=== PATIENT | female | born 1985 | race Caucasian/White ===

== ENCOUNTER 2025-09-07 22:26 | Emergency (ER) | payer OTHER, MEDICAID, SELFPAY ==
--- OUTSIDE RECORDS SUMMARY | 2024-04-29 05:15 | XMS_ITS ---
Author Organization [facility]stal Address [address] [place] [address] Care Team Providers Care Rubber Off Name Role Phone Miriam Arteaga Primary Care Provider REASON FOR VISIT diarrhea Encounters Encounter Location Date Provider Diagnosis [address] [place] [address] 04/29/2024 Miriam Arteaga Plan Of Treatment No Information Progress Notes * Josephine JONESJessicaOB: 3 (40 yo F)Acc No.[id number]:04/29/2024 Progress Notes Patient: Katelynn SNEED :?RUKHSANA McdanielOB:1985???Age:38 Y ???Sex:FemaleDate:04/29/2024hone:[phone]:[address], [id number] Subjective: * Chief Complaints: * 1 . Diarrhea. * Medical History: Objective: * Vitals: Assessment: Plan: * Treatment: * * The named appointment provider may or may not be the originator of this progress note, and it is not deemed complete until electronically signed by the appointment provider.Sign off status: Pending * Provider: Mohan Arteaga MD Date: 0 04/29/2024 Generated for Printing/Faxing/eTransmitting on:?09/08/2025 01:25 AM CHEMIST INSTRUMENTATION
--- OUTSIDE RECORDS SUMMARY | 2024-04-29 05:15 | XMS_ITS ---
Author Organization [facility] y[facility] Address [address] [place] [address] Care Team Providers Care Visualization Developer Name Role Phone Miriam Arteaga Primary Care Provider REASON FOR VISIT diarrhea Encounters Encounter Location Date Provider Diagnosis [address] [place] [address] 04/29/2024 Miriam Arteaga Plan Of Treatment No Information Progress Notes * Josephine JONESJessicaOB: 3 (40 yo F)Acc No.[id number]:04/29/2024 Progress Notes Patient: Katelynn SNEED :?RUKHSANA McdanielOB:1985???Age:38 Y ???Sex:FemaleDate:04/29/2024hone:[phone]:[address], [id number] Subjective: * Chief Complaints: * 1 . Diarrhea. * Medical History: Objective: * Vitals: Assessment: Plan: * Treatment: * * The named appointment provider may or may not be the originator of this progress note, and it is not deemed complete until electronically signed by the appointment provider.Sign off status: Pending * Provider: Mohan Arteaga MD Date: 0 04/29/2024 Generated for Printing/Faxing/eTransmitting on:?09/07/2025 10:29 PM TECHNICAL ANALYST
--- OUTSIDE RECORDS SUMMARY | 2024-04-29 05:45 | XMS_ITS ---
Author Organization [facility] ystal Address [address] [place] [address] Care Team Providers Care Docking Pilot Name Role Phone Miriam Arteaga Primary Care Provider REASON FOR VISIT fissure Encounters Encounter Location Date Provider Diagnosis [address] [place] [address] 04/29/2024 Miriam Arteaga Plan Of Treatment No Information Progress Notes * Josephine JONESgeDOB: 3 (40 yo F)Acc No.[id number]:04/29/2024 Progress Notes Patient: Katelynn SNEED :?RUKHSANA McdanielOB:1985???Age:38 Y ???Sex:FemaleDate:04/29/2024hone:[phone]:[address], [place]-[phone] Subjective: * Chief Complaints: * 1 . Fissure. * Medical History: Objective: * Vitals: Assessment: Plan: * Treatment: * * The named appointment provider may or may not be the originator of this progress note, and it is not deemed complete until electronically signed by the appointment provider.Sign off status: Pending * Provider: Mohan Arteaga MD Date: 0 04/29/2024 Generated for Printing/Faxing/eTransmitting on:?09/07/2025 10:29 PM LABORER [employer]
--- OUTSIDE RECORDS SUMMARY | 2024-04-29 05:45 | XMS_ITS ---
Author Organization [facility] ystal Address [address] [place] [address] Care Team Providers Care Manager Of Warehouse Name Role Phone Miriam Arteaga Primary Care Provider REASON FOR VISIT fissure Encounters Encounter Location Date Provider Diagnosis [address] [place] [address] 04/29/2024 Miriam Arteaga Plan Of Treatment No Information Progress Notes * Josephine JONESgeDOB: 3 (40 yo F)Acc No.[id number]:04/29/2024 Progress Notes Patient: Katelynn SNEED :?RUKHSANA McdanielOB:1985???Age:38 Y ???Sex:FemaleDate:04/29/2024hone:[phone]:[address], [place]-[phone] Subjective: * Chief [...] 04/29/2024 Generated for Printing/Faxing/eTransmitting on:?09/08/2025 01:25 AM APPLIANCES SAMPLE MAKER
--- OUTSIDE RECORDS SUMMARY | 2024-05-27 03:00 | XMS_ITS ---
Author Organization [facility] y[facility]al Address [address] [place] [address] Care Team Providers Care Pumper Gager Name Role Phone Miriam Arteaga Primary Care Provider Allergies Allergen (clinical drug ingredient) Drug/Non Drug Allergy documented on EMR Reaction Allergy Type Onset Date Status clindamycin Clindamycin HCl Unknown Drug Allergy ActiveerythromycinErythromycinUnknownDrug AllergyActiveVicodinUnknownDrug AllergyActivebuspironeBuspironeUnknownDrug AllergyActivemorphineMorphineUnknown Drug AllergyActive REASON FOR VISIT fissure Medications Medication SIG (Take, Route, Frequency, Duration) Notes Start Date End Date Status Lidocaine HCl 2 % 1 application as nee ded Externally Three times a day as needed; Duration: 14 days 2ActiveTylenolActiveColaceActiveAlbuterol Sulfate HFAActiveKlonoPIN ActivehydrOXYzine HClActiveL-MethylfolateActiveMirenaActivePepcidActiveFlonase ActiveVentolin HFAActiveLyricaActive Encounters Encounter Location Date Provider Diagnosis [address] [place] [address] 05/27/2024 Miriam Arteaga Plan Of Treatment No Information Progress Notes * JAMAR RichieOB: 3 (40 yo F)Acc No.[id number]:05/27/2024 Progress Notes Patient: Katelynn SNEED :?Miriam Arteaga MDDOB:1985???Age:38 Y ???Sex:FemaleDate:05/27/2024hone:[phone]:[address], [address], [id number] Subjective: * Chief Complaints: * 1 . Fissure. * Medical History: M ajor depressive disorder, Anxiety, PTSD, Chronic constipation, Herpes, GERD, Panic disorder. * Surgical History: s alpingectomy , D&C , tonsil and adenoidectomy . 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 * Medications: T aking Ventolin HFA , Taking Lyrica , Taking Mirena , Taking L-Methylfolate , Taking hydrOXYzine HCl , Taking Flonase , Taking Pepcid , Taking Colace , Taking KlonoPIN , Taking Albuterol Sulfate HFA , Taking Tylenol , Taking Lidocaine HCl 2 % Gel 1 application as needed Externally Three times a day as needed , Medication List reviewed and reconciled with the patient * Allergies: M orphine, Buspirone, Clindamycin HCl, Erythromycin, Vicodin. Objective: * Vitals: Assessment: Plan: * Treatment: * * The named appointment provider may or may not be the originator of this progress note, and it is not deemed complete until electronically signed by the appointment provider.Sign off status: Pending * Provider: Mohan Arteaga MD Date: 0 05/27/2024 Generated for Printing/Faxing/eTransmitting on:?09/07/2025 10:29 PM WARRANTY CLERK
--- OUTSIDE RECORDS SUMMARY | 2024-05-27 03:00 | XMS_ITS ---
Author Organization [facility] y[facility]al Address [address] [place] [address] Care Team Providers Care Integrity Specialist Name Role Phone Miriam Arteaga Primary Care Provider [phone] Allergies Allergen (clinical drug ingredient) Drug/Non Drug [...] HFAActiveLyricaActive Encounters Encounter Location Date Provider Diagnosis [address] [place] [address] 05/27/2024 Miriam Arteaga Plan Of Treatment No Information Progress Notes * JAMAR RichieOB: 3 (40 yo F)Acc No.[id number]:05/27/2024 Progress Notes Patient: Katelynn SNEED :?Miriam Arteaga MDDOB:1985???Age:38 Y ???Sex:FemaleDate:05/27/2024hone:[phone]:[address], [place], [id number] Subjective: * Chief Complaints: * 1 . Fissure. * Medical History: M ajor depressive disorder, Anxiety, PTSD, Chronic constipation, Herpes, GERD, Panic disorder. * Surgical History: s alpingectomy , D&C , tonsil and adenoidectomy . 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 * Medications: T aking [...] MD Date: 0 05/27/2024 Generated for Printing/Faxing/eTransmitting on:?09/08/2025 01:26 AM SCRAP MATERIALS BUYER
--- OUTSIDE RECORDS SUMMARY | 2025-07-26 22:29 | XMS_ITS | Encounter Summary ---
Author Organization [place] Address [address] [facility] [facility] [place] [address] Care Team Providers Care Cell Preparer Name Role Phone [facility], [facility] Primary Care Provider [phone] Reason for Visit * ReasonCommentsHeadache Encounter Details DateTypeDepartmentCare Team (Latest Contact Info)Klynccrsxdc13/08/2025 10:29 PM POWER AND RECOVERY SUPERINTENDENT - 07/27/2025 12:32 AM [facility] [address] [place] [id number] [phone] Jeyson Reed MD EM[facility]GENCY PHYSICIAN [facility] [address] [place], [place] [id number] Migraine without status migrainosus, not intractable, unspecified migraine type (Primary Dx) Discharge Disposition: Left Against Medical Advice Social History Tobacco UseTypesPacks/DayYears UsedDateSmoking Tobacco: Some DaysCigarettes0.515 Smokeless Tobacco: NeverAlcohol UseStandard Drinks/WeekCommentsNo0 (1 standard drink = 0.6 oz pure alcohol)PHQ-2AnswerDate RecordedPHQ-2 Mzksq324 [place] Depression ScaleAnswerDate RecordedEdinburgh Depression Scale Iqdwh192Last EPDS Self Harm ResultNot on file01/03/2019 Adolescent EducationAnswerDate RecordedGetting School Help NeededNot on file 3CommentsNoSex and Gender InformationValueDate RecordedSex Assigned at BirthNot on fileLegal XbcItlppy37/04/2012 4:09 AM CSTGender Identity Not on fileSexual OrientationNot on fileOccupationIndustryJob Start DateJob 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 on fileNot on fileNot on filedocumented as of this encounter Last Filed Vital Signs Vital SignReadingTime TakenCommentsBlood Uocpydtn731/7507/26/2025 10:23 PM POWER AND RECOVERY SUPERINTENDENT Kfmzx327507/26/2025 10:23 PM XUQTauywqahwtk81.5 ??C (97.7 ??F)07/26/2025 10:23 PM CSTRespiratory Fhsa753709/25/2024 10:23 PM CSTOxygen Hexgsfpdcv14%07/26/2025 10:23 PM CSTInhaled Oxygen Concentration--Hvzyyb36.2 kg (203 lb 4.2 oz)07/26/2025 10:23 PM MYLGzamns963.2 cm (5' 7)07/26/2025 10:23 PM CSTBody Mass Index31.84 07/26/2025 10:23 PM CSTdocumented in this encounter Functional Status * Calculated C-SSRS Risk Score (Lifetime/Recent)AnswerDate of AssessmentAuthorNo Risk Xmobuodwc04/08/2025 10:27 PM Leah Narayanan RN * [place] Suicide Severity Rating Scale (Screener/Recent Self-Report)Question AnswerDate of AssessmentAuthor1. Wish to be (Past 1 Month)No07/26/2025 10:27 PM Leah Narayanan RN2. Non-Specific Active Suicidal Thoughts (Past 1 Month)No07/26/2025 10:27 PM Leah Narayanan RN6. Suicidal Behavior (Lifetime)No07/26/2025 10:27 PM Leah Narayanan RN documented as of this encounter Discharge Instructions * Attachments The following attachments cannot be sent through Care Everywhere. * Migraine Headache (Italian) documented in this encounter Medications at Time of Discharge MedicationSigDispense QuantityRefillsLast FilledStart DateEnd Date acetaminophen (TYLENOL) 500 MG tablet Take 500 mg by mouth every 6 hours as needed for mild pain albuterol (PROVENTIL HFA) 108 (90 BASE) MCG/ACT inhaler Indications:Chest tightness,Intermittent asthma with allergic rhinitisInhale 2 puffs into the lungs every 6 hours 1 Inhaler EPINEPHrine 0.3 MG/0.3ML injection 2-pack Inject 0.3 mg into the asxjsi0506/08/2015 ibuprofen (ADVIL/MOTRIN) 600 MG tablet Take 600 mg by mouth every 8 hours as needed for moderate pain levonorgestrel (MIRENA) 20 MCG/24HR IUD Indications:Encounter for insertion of intrauterine contraceptive device1 each (20 mcg) by Intrauterine route once [facility]- [id number] EXP-12/2021 valACYclovir (VALTREX) 500 MG tablet Take 500 mg by mouth 2 times daily as neededdocumented as of this encounter ED Notes * Abbe Lynn - 07/27/2025 12:25 AM CSTSummary: Rounding Pt asks to leave because she doesn't want to wait and she's uncomfortable. Offered warm blankets, pillow (positioning), and light changes that she refused. Informed staff technologist and MD. R AND RECOVERY SUPERINTENDENT * Jeyson Reed MD - 07/26/2025 10:46 PM CST Verbal consent was obtained if AI documentation was used in the creation of this note. Emergency Department Note History of Present Illness Chief Complaint: Headache HPI Katelynn Jones is a 40 year old female history of migraines going on almost 2 weeks of a headache no vision changes no speech changes no difficulty with ambulation or gait no motor or sensation changes no fever no no neck pain no chest pain no shortness of breath no abdominal pain she feels like the headaches came on after the neuro implanted cervical pump had a medication change Independent Historian: Review of External Notes: Urine had of outpatient visits throughout 2024 including H&P for Elvis Past Medical History Medical History and Problem List Past Medical History: Diagnosis Date Anemia 2012 Anxiety Asthma, intermittent 1995 Depressive disorder Genital herpes 1999 Migraine Panic disorder PTSD (post-traumatic stress disorder) Medications acetaminophen (TYLENOL) 500 MG tablet albuterol (PROVENTIL HFA) 108 (90 BASE) MCG/ACT inhaler EPINEPHrine 0.3 MG/0.3ML injection 2-pack ibuprofen (ADVIL/MOTRIN) 600 MG tablet levonorgestrel (MIRENA) 20 MCG/24HR IUD valACYclovir (VALTREX) 500 MG tablet Past Surgical History: Past Surgical History: Procedure Laterality Date DILATION AND CURETTAGE SUCTION N/A 03/16/2018 Procedure: DILATION AND CURETTAGE SUCTION; DILATION AND SUCTION CURETTAGE ; Surgeon: Krista Saha MD; Location: OR TOOTH EXTRACTION W/FORCEP LAPAROSCOPIC SALPINGECTOMY Bilateral 02/21/2019 Procedure: LAPAROSCOPIC BILATERAL SALPINGECTOMY; Surgeon: Ro Mcmahan MD; Location: OR TONSILLECTOMY & ADENOIDECTOMY 1988 Past Medical History Patient Vitals for the past 24 hrs: BP Temp Temp src Pulse Resp SpO2 Height Weight 07/26/25 2223 133/75 97.7 ??F (36.5 ??C) Temporal 79 18 99 % 1.702 m (5' 7) 92.2 kg (203 lb 4.2 oz) Physical Exam General: Patient is well appearing. No distress. Head: Atraumatic. Eyes: Conjunctivae and EOM are normal. No scleral icterus. Neck: Normal range of motion. Neck supple. No meningismus Cardiovascular: Normal rate, regular rhythm, normal heart sounds and intact distal pulses. Pulmonary/Chest: Breath sounds normal. No respiratory distress. Abdominal: Soft. Bowel sounds are normal. No distension. No tenderness. No rebound or guarding. Musculoskeletal: Normal range of motion. Neuro: Alert, oriented x3, PERRL, EOMI, CN 2-7 and 9-12 intact, 5/5 grasp BUE, 5/5 elbow flexion and extension BUE, 5/5 shoulder abduction BUE, 5/5 hip flexion, knee flexion, knee extension, plantar and dorsiflexion BLE, no pronator drift, normal gait Skin: Warm and dry. No rash noted. Not diaphoretic. Diagnostics Lab Results Labs Ordered and Resulted from Time of ED Arrival to Time of ED Departure BASIC METABOLIC PANEL (LIMITED OCCURRENCES) - Normal Result Value Sodium 139 Potassium 3.9 Chloride 103 Carbon Dioxide (CO2) 24 Anion Gap 12 Urea Nitrogen 18.9 Creatinine 0.69 GFR Estimate >90 Calcium 9.1 Glucose 99 CBC WITH PLATELETS AND DIFFERENTIAL WBC Count 6.94 RBC Count 4.61 Hemoglobin 14.4 Hematocrit 41.5 MCV 90.0 MCH 31.2 MCHC 34.7 RDW 12.3 Platelet Count 230 % Neutrophils 60.4 % Lymphocytes 30.0 % Monocytes 7.8 % Eosinophils 1.2 % Basophils 0.3 % Immature Granulocytes 0.3 NRBCs per 100 WBC 0.0 Absolute Neutrophils 4.20 Absolute Lymphocytes 2.08 Absolute Monocytes 0.54 Absolute Eosinophils 0.08 Absolute Basophils <0.03 Absolute Immature Granulocytes <0.03 Absolute NRBCs <0.[address] Head w/o Contrast (Results Pending) CTA Head Neck with Contrast (Results Pending) EKG Independent Interpretation CT head CTA ED Course Medications Administered Medications sodium chloride 0.9% BOLUS 1,000 mL (1,000 mLs Intravenous $New Bag 07/26/252252) ketorolac (TORADOL) injection 10 mg (10 mg Intravenous $Given 07/26/252250) dexAMETHasone PF (DECADRON) injection 10 mg (10 mg Intravenous $Given 07/26/252252) prochlorperazine (COMPAZINE) injection 10 mg (10 mg Intravenous $Given 07/26/252252) diphenhydrAMINE (BENADRYL) injection 25 mg (25 mg Intravenous $Given 07/26/252252) iohexol (OMNIPAQUE) 350 MG/ML injectable solution 500 mL (71 mLs Intravenous $Given 07/27/2515) sodium chloride 0.9 % bag for CT scan flush (100 mLs Intravenous $Given 07/27/2515) Procedures Procedures Discussion of Management ED Course Additional Documentation Medical Decision Making / Diagnosis ELAINE Pace Gin Jones is a 40 year old female with history of migraines got standard treatment but complicating factors of it feeling a little bit differently and also cervical stimulator I recommendedCT head and CTA no signs of infectious inflammatory changes no signs of meningitis patient understands the risks and benefits does not want to wait for CT CTA any longer signed the AMA form understands that without a complete workup we cannot completely diagnose Disposition The patient was discharged. and The patient left AMA. Diagnosis ICD-10-CM 1. Migraine without status migrainosus, not intractable, unspecified migraine type G43.909 Discharge Medications New Prescriptions No medications on file Technology Attestation: This note may have been generated with the assistance of technology. I have reviewed and edited thecontent as needed and attest that it accurately reflects my clinical evaluation and medical decision making. Jeyson Reed MD 07/27/25 0029 R AND RECOVERY SUPERINTENDENT * Leah Olivarez RN - 07/26/2025 10:23 PM CST Patient here for a headache, which started 12 days ago. Intrathecal pain pump placed in March and dose increased the day before headache started. Currently feels like her skin is burning in her sinuses. Concerned for a sinus infection, had covid in June. No vision changes. Headache feels different from her normal. R AND RECOVERY SUPERINTENDENT R AND RECOVERY SUPERINTENDENT documented in this encounter Plan of Treatment Not on file documented as of this encounter Procedures Procedure NamePriorityDate/TimeAssociated DiagnosisCommentsCTA HEAD NECK W YPZRQPQNXTTL70/09/2025 12:46 AM POWER AND RECOVERY SUPERINTENDENT CT HEAD W/O MRQUYYNCNNQW35/09/2025 12:46 AM POWER AND RECOVERY SUPERINTENDENT EXTRA LQTTFVQQ01/08/2025 10:48 PM POWER AND RECOVERY SUPERINTENDENT EXTRA RED TOP GWGAUMWC81/08/2025 10:48 PM POWER AND RECOVERY SUPERINTENDENT EXTRA BLUE TOP AKDDBGUF46/08/2025 10:48 PM POWER AND RECOVERY SUPERINTENDENT CBC WITH PLATELETS AND YKYNDGJKUJAQRHWC26/08/2025 10:48 PM POWER AND RECOVERY SUPERINTENDENT CBC WITH PLATELETS AND DIFFERENTIAL (LIMITED OCCURRENCES)STAT109/25/2024 10:48 PM POWER AND RECOVERY SUPERINTENDENT BASIC METABOLIC PANEL (LIMITED OCCURRENCES)STAT109/25/2024 10:48 PM POWER AND RECOVERY SUPERINTENDENT documented in this encounter Results * CTA Head Neck with Contrast (07/27/2025 12:46 AM POWER AND RECOVERY SUPERINTENDENT)Anatomical Region LateralityModalityHead, SUBRAD CT NEURO, SUBRAD CT NEURO, UMP CT NEURO, RAD CT Computed TomographySpecimen (Source)Anatomical Location / LateralityCollection Method / VolumeCollection TimeReceived Time07/27/2025 12:46 AM POWER AND RECOVERY SUPERINTENDENT Impressions 07/27/2025 1:13 AM POWER AND RECOVERY SUPERINTENDENT IMPRESSION: HEAD CT: 1. ??Moderately limited by motion. No definite acute intracranial abnormality. HEAD CTA: 1. ??No high-grade stenosis, branch occlusion, or aneurysm. NECK CTA: 1. ??No high-grade stenosis or dissection. Narrative 07/27/2025 1:13 AM POWER AND RECOVERY SUPERINTENDENT EXAM: CT HEAD W/O CONTRAST, CTA HEAD NECK W CONTRAST LOCATION: [facility] DATE: 07/27/2025 INDICATION: GERBER, sinus pain, migraines, also cervical pain pump by Elvis COMPARISON: None. CONTRAST: 71 mL Omnipaque 350 TECHNIQUE: Head and neck CT angiogram with IV contrast. Noncontrast head CT followed by axial helical CT images of the head and neck vessels obtained during the arterial phase of intravenous contrastadministration. Axial 2D reconstructed images and multiplanar 3D MIP reconstructed images of the head and neck vessels were performed by the technologist. Dose reduction techniques were used. All stenosis measurements made according to NASCET criteria unless otherwise specified. FINDINGS: NONCONTRAST HEAD CT: INTRACRANIAL CONTENTS: Moderately limited by motion on a few slices. No definite acute hemorrhage or mass effect. No large territorial infarct by CT. No hydrocephalus. Normal parenchymal attenuation.Normal ventricles and sulci. VISUALIZED ORBITS/SINUSES/MASTOIDS: No intraorbital abnormality. No paranasal sinus mucosal disease. No middle ear or mastoid effusion. BONES/SOFT TISSUES: No acute abnormality. HEAD CTA: ANTERIOR CIRCULATION: No stenosis/occlusion, aneurysm, or high flow vascular malformation. Standardcircle of [place] anatomy. POSTERIOR CIRCULATION: No stenosis/occlusion, aneurysm, or high flow vascular malformation. Balanced vertebral arteries supply a normal basilar artery. DURAL VENOUS SINUSES: Expected enhancement of the major dural venous sinuses. NECK CTA: RIGHT CAROTID: No measurable stenosis or dissection. LEFT CAROTID: No measurable stenosis or dissection. VERTEBRAL ARTERIES: No focal stenosis or dissection. Balanced vertebral arteries. AORTIC ARCH: Classic aortic arch anatomy with no significant stenosis at the origin of the great vessels. NONVASCULAR STRUCTURES: Unremarkable. Procedure Note Lito Salcedo MD - 07/27/2025 EXAM: CT HEAD W/O CONTRAST, CTA HEAD NECK W CONTRAST LOCATION: [facility] DATE: 07/27/2025 INDICATION: GERBER, sinus pain, migraines, also cervical pain pump by Elvis COMPARISON: None. CONTRAST: 71 mL Omnipaque 350 TECHNIQUE: Head and neck CT angiogram with IV contrast. Noncontrast headCT followed by axial helical CT images of the head and neck vesselsobtained during the arterial phase of intravenous contrast administration.Axial 2D reconstructed images and multiplanar 3D MIP reconstructed images of the head and neck vessels were performed by the technologist. Dose reduction techniques were used. Allstenosis measurements made according to NASCET criteria unless otherwisespecified. FINDINGS: NONCONTRAST HEAD CT: INTRACRANIAL CONTENTS: Moderately limited by motion on a few slices. Nodefinite acute hemorrhage or mass effect. No large territorial infarct byCT. No hydrocephalus. Normal parenchymal attenuation. Normal ventriclesand sulci. VISUALIZED ORBITS/SINUSES/MASTOIDS: No intraorbital abnormality. Noparanasal sinus mucosal disease. No middle ear or mastoid effusion. BONES/SOFT TISSUES: No acute abnormality. HEAD CTA: ANTERIOR CIRCULATION: No stenosis/occlusion, aneurysm, or high flowvascular malformation. Standard [place] of [place] anatomy. POSTERIOR CIRCULATION: No stenosis/occlusion, aneurysm, or high flowvascular malformation. Balanced vertebral arteries supply a normal basilarartery. DURAL VENOUS SINUSES: Expected enhancement of the major dural venoussinuses. NECK CTA: RIGHT CAROTID: No measurable stenosis or dissection. LEFT CAROTID: No measurable stenosis or dissection. VERTEBRAL ARTERIES: No focal stenosis or dissection. Balanced vertebralarteries. AORTIC ARCH: Classic aortic arch anatomy with no significant stenosis atthe origin of the great vessels. NONVASCULAR STRUCTURES: Unremarkable. IMPRESSION: HEAD CT: 1. Moderately limited by motion. No definite acute intracranialabnormality. HEAD CTA: 1. No high-grade stenosis, branch occlusion, or aneurysm. NECK CTA: 1. No high-grade stenosis or dissection. Authorizing ProviderResult TypeResult StatusJeyson Reed [address] CT ORDERABLES Final Result * CT Head w/o Contrast (07/27/2025 12:46 AM POWER AND RECOVERY SUPERINTENDENT)Anatomical RegionLaterality ModalityHead, SUBRAD CT NEURO, SUBRAD CT NEURO, UMP CT NEURO, RAD CTComputed TomographySpecimen (Source)Anatomical Location / LateralityCollection Method / VolumeCollection TimeReceived Time07/27/2025 12:46 AM POWER AND RECOVERY SUPERINTENDENT Impressions 07/27/2025 1:13 AM POWER AND RECOVERY SUPERINTENDENT IMPRESSION: HEAD CT: 1. ??Moderately limited by motion. No definite acute intracranial abnormality. HEAD CTA: 1. ??No high-grade stenosis, branch occlusion, or aneurysm. NECK CTA: 1. ??No high-grade stenosis or dissection. Narrative 07/27/2025 1:13 AM POWER AND RECOVERY SUPERINTENDENT EXAM: CT HEAD W/O CONTRAST, CTA HEAD NECK W CONTRAST LOCATION: [facility] DATE: 07/27/2025 INDICATION: GERBER, sinus pain, migraines, also cervical pain pump by Elvis COMPARISON: None. CONTRAST: 71 mL Omnipaque 350 TECHNIQUE: Head and neck CT angiogram with IV contrast. Noncontrast head CT followed by axial helical CT images of the head and neck vessels obtained during the arterial phase of intravenous contrastadministration. Axial 2D reconstructed images and multiplanar 3D MIP reconstructed images of the head and neck vessels were performed by the technologist. Dose reduction techniques were used. All stenosis measurements made according to NASCET criteria unless otherwise specified. FINDINGS: NONCONTRAST HEAD CT: INTRACRANIAL CONTENTS: Moderately limited by motion on a few slices. No definite acute hemorrhage or mass effect. No large territorial infarct by CT. No hydrocephalus. Normal parenchymal attenuation.Normal ventricles and sulci. VISUALIZED ORBITS/SINUSES/MASTOIDS: No intraorbital abnormality. No paranasal sinus mucosal disease. No middle ear or mastoid effusion. BONES/SOFT TISSUES: No acute abnormality. HEAD CTA: ANTERIOR CIRCULATION: No stenosis/occlusion, aneurysm, or high flow vascular malformation. Standardcircle of [place] anatomy. POSTERIOR CIRCULATION: No stenosis/occlusion, aneurysm, or high flow vascular malformation. Balanced vertebral arteries supply a normal basilar artery. DURAL VENOUS SINUSES: Expected enhancement of the major dural venous sinuses. NECK CTA: RIGHT CAROTID: No measurable stenosis or dissection. LEFT CAROTID: No measurable stenosis or dissection. VERTEBRAL ARTERIES: No focal stenosis or dissection. Balanced vertebral arteries. AORTIC ARCH: Classic aortic arch anatomy with no significant stenosis at the origin of the great vessels. NONVASCULAR STRUCTURES: Unremarkable. Procedure Note Lito Salcedo MD - 07/27/2025 EXAM: CT HEAD W/O CONTRAST, CTA HEAD NECK W CONTRAST LOCATION: [facility] DATE: 07/27/2025 INDICATION: GERBER, sinus pain, migraines, also cervical pain pump by Elvis COMPARISON: None. CONTRAST: 71 mL Omnipaque 350 TECHNIQUE: Head and neck CT angiogram with IV contrast. Noncontrast headCT followed by axial helical CT images of the head and neck vesselsobtained during the arterial phase of intravenous contrast administration.Axial 2D reconstructed images and multiplanar 3D MIP reconstructed images of the head and neck vessels were performed by the technologist. Dose reduction techniques were used. Allstenosis measurements made according to NASCET criteria unless otherwisespecified. FINDINGS: NONCONTRAST HEAD CT: INTRACRANIAL CONTENTS: Moderately limited by motion on a few slices. Nodefinite acute hemorrhage or mass effect. No large territorial infarct byCT. No hydrocephalus. Normal parenchymal attenuation. Normal ventriclesand sulci. VISUALIZED ORBITS/SINUSES/MASTOIDS: No intraorbital abnormality. Noparanasal sinus mucosal disease. No middle ear or mastoid effusion. BONES/SOFT TISSUES: No acute abnormality. HEAD CTA: ANTERIOR CIRCULATION: No stenosis/occlusion, aneurysm, or high flowvascular malformation. Standard [place] of [place] anatomy. POSTERIOR CIRCULATION: No stenosis/occlusion, aneurysm, or high flowvascular malformation. Balanced vertebral arteries supply a normal basilarartery. DURAL VENOUS SINUSES: Expected enhancement of the major dural venoussinuses. NECK CTA: RIGHT CAROTID: No measurable stenosis or dissection. LEFT CAROTID: No measurable stenosis or dissection. VERTEBRAL ARTERIES: No focal stenosis or dissection. Balanced vertebralarteries. AORTIC ARCH: Classic aortic arch anatomy with no significant stenosis atthe origin of the great vessels. NONVASCULAR STRUCTURES: Unremarkable. IMPRESSION: HEAD CT: 1. Moderately limited by motion. No definite acute intracranialabnormality. HEAD CTA: 1. No high-grade stenosis, branch occlusion, or aneurysm. NECK CTA: 1. No high-grade stenosis or dissection. Authorizing ProviderResult TypeResult StatusJeyson FARRELL CT ORDERABLES Final Result * Extra Red Top Tube (07/26/2025 10:48 PM POWER AND RECOVERY SUPERINTENDENT)ComponentValueRef RangeTest Method Analysis TimePerformed AtPathologist SignatureHold EbgghdilNQQ97/09/2025 12:01 AM [facility] LABORATORYSpecimen (Source)Anatomical Location / LateralityCollection Method / VolumeCollection TimeReceived TimeBloodBLOOD SPECIMEN / Unknown Venipuncture / Iagtwpa5507/26/2025 10:48 PM CST07/26/2025 10:54 PM POWER AND RECOVERY SUPERINTENDENT Narrative Authorizing ProviderResult TypeResult StatusJeyson BAIRES - BLOOD ORDERABLESFinal ResultPerforming OrganizationAddressCity/State/ZIP CodePhone Number [facility] [address] Lab (1st floor, no room number) [address] * Extra Blue Top Tube (07/26/2025 10:48 PM POWER AND RECOVERY SUPERINTENDENT)ComponentValueRef RangeTest MethodAnalysis TimePerformed AtPathologist SignatureHold XrvzctcuRNN35/09/2025 12:01 AM [facility] LABORATORYSpecimen (Source)Anatomical Location / Laterality Collection Method / VolumeCollection TimeReceived TimeBloodBLOOD SPECIMEN / UnknownVenipuncture / Opdmzol3507/26/2025 10:48 PM CST07/26/2025 10:54 PM POWER AND RECOVERY SUPERINTENDENT Narrative Authorizing ProviderResult TypeResult StatusJeyson BAIRES - BLOOD ORDERABLESFinal ResultPerforming OrganizationAddressCity/State/ZIP CodePhone Number [facility] [address] Lab (1st floor, no room number) [address] * CBC with platelets and differential (07/26/2025 10:48 PM POWER AND RECOVERY SUPERINTENDENT)ComponentValueRef RangeTest MethodAnalysis TimePerformed AtPathologist SignatureWBC Count6.94 4.00 - 11.00 10e3/uL07/26/2025 10:56 PM [facility] LABORATORYRBC Count4.613.80 - 5.20 10e6/uL07/26/2025 10:56 PM [facility] NDNSXVSZWLCyjdmtsfmt46.411.7 - 15.7 g/dL 07/26/2025 10:56 PM [facility] HKWPSUZQJKXxzyvcnklk02.535.0 - 47.0 %07/26/2025 10:56 PM [facility] DAUTODEAIGMKA63.078.0 - 100.0 fL07/26/2025 10:56 PM [facility] CUWESGKACTFFR15.226.5 - 33.0 pg07/26/2025 10:56 PM [facility] RSDAXIHKAVLPCK23.7 31.5 - 36.5 g/dL07/26/2025 10:56 PM [facility] PAASZZXYNNOMA44.310.0 - 15.0 % 07/26/2025 10:56 PM [facility] LABORATORYPlatelet Hmdln646409 - 450 10e3/uL 07/26/2025 10:56 PM [facility]% Dulsnkqtmmx21.4%07/26/2025 10:56 PM [facility]% Ptmtubuxcrx27.0%07/26/2025 10:56 PM [facility]% Monocytes 7.8%07/26/2025 10:56 PM [facility]% Eosinophils1.2%07/26/2025 10:56 PM [facility]% Basophils0.3%07/26/2025 10:56 PM [facility]% Immature Granulocytes0.3%07/26/2025 10:56 PM [facility] LABORATORYNRBCs per 100 WBC0.0<1.0 /0377707/26/2025 10:56 PM [facility] LABORATORYAbsolute Neutrophils4.201.60 - 8.30 10e3/uL07/26/2025 10:56 PM [facility] LABORATORYAbsolute Lymphocytes2.080.80 - 5.30 10e3/uL07/26/2025 10:56 PM [facility] LABORATORYAbsolute Monocytes0.540.00 - 1.30 10e3/uL07/26/2025 10:56 PM [facility] LABORATORYAbsolute Eosinophils0.080.00 - 0.70 10e3/uL07/26/2025 10:56 PM [facility] LABORATORYAbsolute Basophils<0.030.00 - 0.20 10e3/uL07/26/2025 10:56 PM [facility] LABORATORYAbsolute Immature Granulocytes<0.03 <=0.40 10e3/uL07/26/2025 10:56 PM [facility] LABORATORYAbsolute NRBCs<0.0310e3/uL 07/26/2025 10:56 PM [facility] LABORATORYSpecimen (Source)Anatomical Location / LateralityCollection Method / VolumeCollection TimeReceived TimeBloodBLOOD SPECIMEN / UnknownVenipuncture / Cavqbpx3507/26/2025 10:48 PM CST07/26/2025 10:54 PM POWER AND RECOVERY SUPERINTENDENT Narrative Authorizing ProviderResult TypeResult StatusJeyson Reed MDLAB - BLOOD ORDERABLESFinal ResultPerforming OrganizationAddressCity/State/ZIP CodePhone Number [facility] [address] [facility] Lab (1st floor, no room number) [place] [address], [facility] * Basic Metabolic Panel (Limited Occurrences) (07/26/2025 10:48 PM POWER AND RECOVERY SUPERINTENDENT)Component ValueRef RangeTest MethodAnalysis TimePerformed AtPathologist SignatureSodium 592991 - 145 mmol/L109/25/2024 11:25 PM [facility] LABORATORYPotassium3.93.4 - 5.3 mmol/L109/25/2024 11:25 PM [facility] XINCGDVCWVBqsybbaa20097 - 107 mmol/L109/25/2024 11:25 PM [facility] LABORATORYCarbon Dioxide (CO2)2422 - 29 mmol/L109/25/2024 11:25 PM [facility] LABORATORYAnion Qnc106 - 15 mmol/L109/25/2024 11:25 PM [facility] LABORATORYUrea Izrqmcis73.96.0 - 20.0 mg/dL07/26/2025 11:25 PM [facility] LABORATORYCreatinine0.690.51 - 0.95 mg/dL07/26/2025 11:25 PM [facility] GFR Estimate>90>60 mL/min/1.72u85507/26/2025 11:25 PM [facility] LABORATORYComment: eGFR calculated using 2020 CKD-EPI equation.Calcium9.18.8 - 10.4 mg/dL 07/26/2025 11:25 PM [facility] PYVDHIDNXYZbhrwjw8908 - 99 mg/dL07/26/2025 11:25 PM [facility] LABORATORYSpecimen (Source)Anatomical Location / LateralityCollection Method / VolumeCollection TimeReceived TimeBloodBLOOD SPECIMEN / Unknown Venipuncture / Uodhcjm1307/26/2025 10:48 PM CST07/26/2025 10:54 PM POWER AND RECOVERY SUPERINTENDENT Narrative Authorizing ProviderResult TypeResult StatusJeyson Reed MDLAB - BLOOD ORDERABLESFinal ResultPerforming OrganizationAddressCity/State/ZIP CodePhone Number [facility] [address] [facility] Lab (1st floor, no room number) [place] [address], [facility] documented in this encounter Visit Diagnoses Diagnosis Migraine without status migrainosus, not intractable, unspecified migraine type- Primary documented in this encounter Administered Medications Medication OrderMAR ActionAction DateDoseRateSite dexAMETHasone PF (DECADRON) injection 10 mg 10 mg, Intravenous, ONCE, Administer over 1 Minutes, On 07/26/25 at 2235, For 1 dose $Given07/26/2025 10:53 PM CST10 mg diphenhydrAMINE (BENADRYL) injection 25 mg 25 mg, Intravenous, ONCE, On 07/26/25 at 2235, For 1 dose $Given07/26/2025 10:53 PM CST25 mg iohexol (OMNIPAQUE) 350 MG/ML injectable solution 500 mL 500 mL, Intravenous, ONCE, On 07/27/25 at 0015, For 1 dose, Indications: CT CONTRAST Indications:CT CONTRAST$Given07/27/2025 12:16 AM CST71 mLs ketorolac (TORADOL) injection 10 mg 10 mg, Intravenous, ONCE, On 07/26/25 at 2235, For 1 dose, Do not give within 6 hours of Ibuprofen. Can cause pain on injection. If ordered intravenously (IV) : administer through a running maintenance fluid over 1 minute followed by a flush. If patient complains of pain on injection, may ygkvrm64-72 mg in 5 mL and push over 1 to 2 minutes. $Given07/26/2025 10:51 PM CST10 mg prochlorperazine (COMPAZINE) injection 10 mg 10 mg, Intravenous, ONCE, Administer over 1-2 Minutes, On 07/26/25 at 2235, For 1 dose $Given07/26/2025 10:53 PM CST10 mg sodium chloride 0.9 % bag for CT scan flush Intravenous, 100 mL, ONCE, On 07/27/25 at 0015, For 1 dose, This entry is for use by Radiology to intermittently use as a flush in patients receiving a CT scan. $Given07/27/2025 12:16 AM DWV634 mLs sodium chloride 0.9% BOLUS 1,000 mL Intravenous, 1,000 mL, ONCE, at 1,000 mL/hr, Administer over 1 Hours, On 07/26/25 at 2235, For 1dose $New Bag07/26/2025 10:53 PM CST1,000 mTw8762 mL/hrdocumented in this encounter Active and Recently Administered Medications Times are shown in POWER AND RECOVERY SUPERINTENDENT.Medication Order dexAMETHasone PF (DECADRON) injection 10 mg (COMPLETED) 10 mg, Intravenous, ONCE, Administer over 1 Minutes, On 07/26/25 at 2235, For 1 dose * 2253 ($Given - Provider: Pat Singh RN) diphenhydrAMINE (BENADRYL) injection 25 mg (COMPLETED) 25 mg, Intravenous, ONCE, On 07/26/25 at 2235, For 1 dose * 2253 ($Given - Provider: Pat Singh RN) iohexol (OMNIPAQUE) 350 MG/ML injectable solution 500 mL (COMPLETED) 500 mL, Intravenous, ONCE, On 07/27/25 at 0015, For 1 dose, Indications: CT CONTRAST * 0016 ($Given - Provider: CAMILA Soto) ketorolac (TORADOL) injection 10 mg (COMPLETED) 10 mg, Intravenous, ONCE, On 07/26/25 at 2235, For 1 dose, Do not give within 6 hours of Ibuprofen. Can cause pain on injection. If ordered intravenously (IV) : administer through a running maintenance fluid over 1 minute followed by a flush. If patient complains of pain on injection, may yupdxo67-26 mg in 5 mL and push over 1 to 2 minutes. * 2251 ($Given - Provider: Pat Singh, ACE) prochlorperazine (COMPAZINE) injection 10 mg (COMPLETED) 10 mg, Intravenous, ONCE, Administer over 1-2 Minutes, On 07/26/25 at 2235, For 1 dose * 2253 ($Given - Provider: Pat Singh, RN) sodium chloride 0.9 % bag for CT scan flush (COMPLETED) Intravenous, 100 mL, ONCE, On 07/27/25 at 0015, For 1 dose, This entry is for use by Radiology to intermittently use as a flush in patients receiving a CT scan. * 0016 ($Given - Provider: Kay Rios, ARRT) sodium chloride 0.9% BOLUS 1,000 mL (COMPLETED) Intravenous, 1,000 mL, ONCE, at 1,000 mL/hr, Administer over 1 Hours, On 07/26/25 at 2235, For 1dose * 2253 ($New Bag - Provider: Pat Singh RN) documented in this encounter Additional Health Concerns AssessmentNoted TimePHQ-9 Depression Total Score: 9:26 AM POWER AND RECOVERY SUPERINTENDENT documented as of this encounter Care Teams Team MemberRelationshipSpecialtyStart [address] [address] PCP - Fzyagxy92/8/25documented as of this encounter
--- OUTSIDE RECORDS SUMMARY | 2025-07-26 22:29 | XMS_ITS | Encounter Summary ---
Author Organization [place] Address [address] [facility] [place] [place] [address] Care Team Providers Care Car Starter Name Role Phone [facility], [facility] Primary Care Provider [phone] Reason for Visit * ReasonCommentsHeadache Encounter Details DateTypeDepartmentCare Team (Latest Contact Info)Bpeitpydnvl76/08/2025 10:29 PM IT SECURITY ARCHITECT - 07/27/2025 12:32 AM [facility] [address] [place] [address] [phone] Jeyson Reed MD [facility]Y PHYSICIAN [facility] [address] [place], [place] [id number] Migraine without status migrainosus, not intractable, unspecified migraine type (Primary Dx) Discharge Disposition: Left Against Medical Advice Social History Tobacco UseTypesPacks/DayYears UsedDateSmoking Tobacco: Some DaysCigarettes0.515 Smokeless Tobacco: NeverAlcohol UseStandard Drinks/WeekCommentsNo0 (1 standard drink = 0.6 oz pure alcohol)PHQ-2AnswerDate RecordedPHQ-2 Fqlie917 [facility] Depression ScaleAnswerDate RecordedEdinburgh Depression Scale Rovvg518Last EPDS Self Harm ResultNot on file01/03/2019 Adolescent EducationAnswerDate RecordedGetting School Help NeededNot on file 3CommentsNoSex and Gender InformationValueDate RecordedSex Assigned at BirthNot on fileLegal HzfWgbbbs11/04/2012 4:09 AM CSTGender Identity Not on fileSexual OrientationNot on fileOccupationIndustryJob Start DateJob 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 on fileNot on fileNot on filedocumented as of this encounter Last Filed Vital Signs Vital SignReadingTime TakenCommentsBlood Mjzglacy841/7507/26/2025 10:23 PM IT SECURITY ARCHITECT Pwzqx006707/26/2025 10:23 PM LJOTeilafvgmhj69.5 ??C (97.7 ??F)07/26/2025 10:23 PM CSTRespiratory Ujgp692509/25/2024 10:23 PM CSTOxygen Rpofgebbhd09%07/26/2025 10:23 PM CSTInhaled Oxygen Concentration--Iciyae69.2 kg (203 lb 4.2 oz)07/26/2025 10:23 PM GSFDkrgsk456.2 cm (5' 7)07/26/2025 10:23 PM CSTBody Mass Index31.84 07/26/2025 10:23 PM CSTdocumented in this encounter Functional Status * Calculated C-SSRS Risk Score (Lifetime/Recent)AnswerDate of AssessmentAuthorNo Risk Xgzqblprc48/08/2025 10:27 PM Leah Narayanan RN * [place] Suicide Severity Rating Scale (Screener/Recent Self-Report)Question AnswerDate of AssessmentAuthor1. Wish to be (Past 1 Month)No07/26/2025 10:27 PM Leah Narayanan RN2. Non-Specific Active Suicidal Thoughts (Past 1 Month)No07/26/2025 10:27 PM Leah Narayanan RN6. Suicidal Behavior (Lifetime)No07/26/2025 10:27 PM Leah Narayanan RN documented as of this encounter Discharge Instructions * Attachments The following attachments cannot be sent through Care Everywhere. * Migraine Headache ([place]) documented in this encounter Medications at Time [...] injection 2-pack Inject 0.3 mg into the xqqnin9606/08/2015 ibuprofen (ADVIL/MOTRIN) 600 MG tablet Take 600 mg by mouth every 8 hours as needed for moderate pain levonorgestrel (MIRENA) 20 MCG/24HR IUD Indications:Encounter for insertion of intrauterine contraceptive device1 each (20 mcg) by Intrauterine route once [facility]- [id number] EXP-12/2021 valACYclovir (VALTREX) 500 MG tablet Take 500 mg by mouth 2 times daily as neededdocumented as of this encounter ED Notes * Abbe Lynn - 07/27/2025 12:25 AM CSTSummary: Rounding Pt asks to leave because she doesn't want to wait and she's uncomfortable. Offered warm blankets, pillow (positioning), and light changes that she refused. Informed nurse staff industrial and MD. SECURITY ARCHITECT * Jeyson Reed MD - 07/26/2025 10:46 [...] decision making. Jeyson Reed MD 07/27/25 0029 SECURITY ARCHITECT * Leah Olivarez RN - 07/26/2025 10:23 PM CST Patient here for a headache, which started 12 days ago. Intrathecal pain pump placed in March and dose increased the day before headache started. Currently feels like her skin is burning in her sinuses. Concerned for a sinus infection, had covid in June. No vision changes. Headache feels different from her normal. SECURITY ARCHITECT SECURITY ARCHITECT documented in this encounter Plan of Treatment Not on file documented as of this encounter Procedures Procedure NamePriorityDate/TimeAssociated DiagnosisCommentsCTA HEAD NECK W IBSOGMUEKWYQ20/09/2025 12:46 AM IT SECURITY ARCHITECT CT HEAD W/O HCOLEPZFJHIR07/09/2025 12:46 AM IT SECURITY ARCHITECT EXTRA ODXVWOTI86/08/2025 10:48 PM IT SECURITY ARCHITECT EXTRA RED TOP WQKRIUFH54/08/2025 10:48 PM IT SECURITY ARCHITECT EXTRA BLUE TOP YEPNVQMR52/08/2025 10:48 PM IT SECURITY ARCHITECT CBC WITH PLATELETS AND PTPLLXJTGZLGYHMO75/08/2025 10:48 PM IT SECURITY ARCHITECT CBC WITH PLATELETS AND DIFFERENTIAL (LIMITED OCCURRENCES)STAT109/25/2024 10:48 PM IT SECURITY ARCHITECT BASIC METABOLIC PANEL (LIMITED OCCURRENCES)STAT109/25/2024 10:48 PM IT SECURITY ARCHITECT documented in this encounter Results * CTA Head Neck with Contrast (07/27/2025 12:46 AM IT SECURITY ARCHITECT)Anatomical Region LateralityModalityHead, SUBRAD CT NEURO, SUBRAD CT NEURO, UMP CT NEURO, RAD CT Computed TomographySpecimen (Source)Anatomical Location / LateralityCollection Method / VolumeCollection TimeReceived Time07/27/2025 12:46 AM IT SECURITY ARCHITECT Impressions 07/27/2025 1:13 AM IT SECURITY ARCHITECT IMPRESSION: HEAD CT: 1. ??Moderately limited by motion. No definite acute intracranial abnormality. HEAD CTA: 1. ??No high-grade stenosis, branch occlusion, or aneurysm. NECK CTA: 1. ??No high-grade stenosis or dissection. Narrative 07/27/2025 1:13 AM IT SECURITY ARCHITECT EXAM: CT HEAD W/O CONTRAST, CTA HEAD NECK W CONTRAST LOCATION: [facility] DATE: 07/27/2025 INDICATION: GERBER, sinus pain, migraines, [...] CONTRAST, CTA HEAD NECK W CONTRAST LOCATION: [facility] DATE: 07/27/2025 INDICATION: GERBER, sinus pain, migraines, [...] stenosis/occlusion, aneurysm, or high flowvascular malformation. Standard [place] anatomy. POSTERIOR CIRCULATION: No stenosis/occlusion, [...] or dissection. Authorizing ProviderResult TypeResult StatusJeyson Reed [facility] CT ORDERABLES Final Result * CT Head w/o Contrast (07/27/2025 12:46 AM IT SECURITY ARCHITECT)Anatomical RegionLaterality ModalityHead, SUBRAD CT NEURO, SUBRAD CT NEURO, UMP CT NEURO, RAD CTComputed TomographySpecimen (Source)Anatomical Location / LateralityCollection Method / VolumeCollection TimeReceived Time07/27/2025 12:46 AM IT SECURITY ARCHITECT Impressions 07/27/2025 1:13 AM IT SECURITY ARCHITECT IMPRESSION: HEAD CT: 1. ??Moderately limited by motion. No definite acute intracranial abnormality. HEAD CTA: 1. ??No high-grade stenosis, branch occlusion, or aneurysm. NECK CTA: 1. ??No high-grade stenosis or dissection. Narrative 07/27/2025 1:13 AM IT SECURITY ARCHITECT EXAM: CT HEAD W/O CONTRAST, CTA HEAD NECK W CONTRAST LOCATION: [facility] DATE: 07/27/2025 INDICATION: GERBER, sinus pain, migraines, [...] CONTRAST, CTA HEAD NECK W CONTRAST LOCATION: [facility] DATE: 07/27/2025 INDICATION: GERBER, sinus pain, migraines, [...] stenosis/occlusion, aneurysm, or high flowvascular malformation. Standard [place] anatomy. POSTERIOR CIRCULATION: No stenosis/occlusion, [...] Extra Red Top Tube (07/26/2025 10:48 PM IT SECURITY ARCHITECT)ComponentValueRef RangeTest Method Analysis TimePerformed AtPathologist SignatureHold TysyooeeSHJ14/09/2025 12:01 AM [facility] LABORATORYSpecimen (Source)Anatomical Location / LateralityCollection Method / VolumeCollection TimeReceived TimeBloodBLOOD SPECIMEN / Unknown Venipuncture / Djrwcer8707/26/2025 10:48 PM CST07/26/2025 10:54 PM IT SECURITY ARCHITECT Narrative Authorizing ProviderResult TypeResult StatusJeyson BAIRES - BLOOD ORDERABLESFinal ResultPerforming OrganizationAddressCity/State/ZIP CodePhone Number [facility] [address] Lab (1st floor, no room number) [address] * Extra Blue Top Tube (07/26/2025 10:48 PM IT SECURITY ARCHITECT)ComponentValueRef RangeTest MethodAnalysis TimePerformed AtPathologist SignatureHold HhjvmwciEUM69/09/2025 12:01 AM [facility] LABORATORYSpecimen (Source)Anatomical Location / Laterality Collection Method / VolumeCollection TimeReceived TimeBloodBLOOD SPECIMEN / UnknownVenipuncture / Ykmizei6707/26/2025 10:48 PM CST07/26/2025 10:54 PM IT SECURITY ARCHITECT Narrative Authorizing ProviderResult TypeResult StatusJeyson BAIRES - BLOOD ORDERABLESFinal ResultPerforming OrganizationAddressCity/State/ZIP CodePhone Number [facility] [address] Lab (1st floor, no room number) [address] * CBC with platelets and differential (07/26/2025 10:48 PM IT SECURITY ARCHITECT)ComponentValueRef RangeTest MethodAnalysis TimePerformed AtPathologist SignatureWBC Count6.94 4.00 - 11.00 10e3/uL07/26/2025 10:56 PM [facility] LABORATORYRBC Count4.613.80 - 5.20 10e6/uL07/26/2025 10:56 PM [facility] CHQNMVWBEBGsacqniwlm15.411.7 - 15.7 g/dL 07/26/2025 10:56 PM [facility] XTYTJLJNNQOqjfqxsdij86.535.0 - 47.0 %07/26/2025 10:56 PM [facility] MFLTXVXTPXEZN05.078.0 - 100.0 fL07/26/2025 10:56 PM [facility] OQVRIDAOVCBPE95.226.5 - 33.0 pg07/26/2025 10:56 PM [facility] GYXTJZLVOTNKEN92.7 31.5 - 36.5 g/dL07/26/2025 10:56 PM [facility] IZWJRFFZQLBJV43.310.0 - 15.0 % 07/26/2025 10:56 PM [facility] LABORATORYPlatelet Amlvh187183 - 450 10e3/uL 07/26/2025 10:56 PM [facility]% Odjyrrcooqz00.4%07/26/2025 10:56 PM [facility]% Ufkfiecmpry34.0%07/26/2025 10:56 PM [facility]% Monocytes 7.8%07/26/2025 10:56 PM [facility]% Eosinophils1.2%07/26/2025 10:56 PM [facility]% Basophils0.3%07/26/2025 10:56 PM [facility]% Immature Granulocytes0.3%07/26/2025 10:56 PM [facility] LABORATORYNRBCs per 100 WBC0.0<1.0 /7253407/26/2025 10:56 PM [facility] LABORATORYAbsolute Neutrophils4.201.60 - 8.30 10e3/uL07/26/2025 10:56 PM [facility] LABORATORYAbsolute Lymphocytes2.080.80 - 5.30 10e3/uL07/26/2025 10:56 PM [facility] LABORATORYAbsolute Monocytes0.540.00 - 1.30 10e3/uL07/26/2025 10:56 PM [facility] LABORATORYAbsolute Eosinophils0.080.00 - 0.70 10e3/uL07/26/2025 10:56 PM [facility] LABORATORYAbsolute Basophils<0.030.00 - 0.20 10e3/uL07/26/2025 10:56 PM [facility] LABORATORYAbsolute Immature Granulocytes<0.03 <=0.40 10e3/uL07/26/2025 10:56 PM [facility] LABORATORYAbsolute NRBCs<0.0310e3/uL 07/26/2025 10:56 PM [facility] LABORATORYSpecimen (Source)Anatomical Location / LateralityCollection Method / VolumeCollection TimeReceived TimeBloodBLOOD SPECIMEN / UnknownVenipuncture / Yksshgf2507/26/2025 10:48 PM CST07/26/2025 10:54 PM IT SECURITY ARCHITECT Narrative Authorizing ProviderResult TypeResult StatusJeyson Reed MDLAB - BLOOD ORDERABLESFinal ResultPerforming OrganizationAddressCity/State/ZIP CodePhone Number [facility] [address] [facility] Lab (1st floor, no room number) [place] [address], [facility] * Basic Metabolic Panel (Limited Occurrences) (07/26/2025 10:48 PM IT SECURITY ARCHITECT)Component ValueRef RangeTest MethodAnalysis TimePerformed AtPathologist SignatureSodium 449350 - 145 mmol/L109/25/2024 11:25 PM [facility] LABORATORYPotassium3.93.4 - 5.3 mmol/L109/25/2024 11:25 PM [facility] XEEKAHQAQQDqiuvenh66463 - 107 mmol/L109/25/2024 11:25 PM [facility] LABORATORYCarbon Dioxide (CO2)2422 - 29 mmol/L109/25/2024 11:25 PM [facility] LABORATORYAnion Aml247 - 15 mmol/L109/25/2024 11:25 PM [facility] LABORATORYUrea Ezzynbqb49.96.0 - 20.0 mg/dL07/26/2025 11:25 PM [facility] LABORATORYCreatinine0.690.51 - 0.95 mg/dL07/26/2025 11:25 PM [facility] LAB[facility] GFR Estimate>90>60 mL/min/1.99y84007/26/2025 11:25 PM [facility] LABORATORYComment: eGFR calculated using 2020 CKD-EPI equation.Calcium9.18.8 - 10.4 mg/dL 07/26/2025 11:25 PM [facility] FWAUWFPLDGBnsdkqf5141 - 99 mg/dL07/26/2025 11:25 PM [facility] LABORATORYSpecimen (Source)Anatomical Location / LateralityCollection Method / VolumeCollection TimeReceived TimeBloodBLOOD SPECIMEN / Unknown Venipuncture / Vsvbbsh5707/26/2025 10:48 PM CST07/26/2025 10:54 PM IT SECURITY ARCHITECT Narrative Authorizing ProviderResult TypeResult StatusJeyson Reed MDLAB - BLOOD ORDERABLESFinal ResultPerforming OrganizationAddressCity/State/ZIP CodePhone Number [facility] [address] [facility] Lab (1st floor, no room number) [place] [address], [facility] documented in this encounter Visit Diagnoses [...] patient complains of pain on injection, may ydjmzq94-56 mg in 5 mL and push over [...] receiving a CT scan. $Given07/27/2025 12:16 AM IXQ842 mLs sodium chloride 0.9% BOLUS 1,000 mL Intravenous, 1,000 mL, ONCE, at 1,000 mL/hr, Administer over 1 Hours, On 07/26/25 at 2235, For 1dose $New Bag07/26/2025 10:53 PM CST1,000 iXs2730 mL/hrdocumented in this encounter Active and Recently Administered Medications Times are shown in IT SECURITY ARCHITECT.Medication Order dexAMETHasone PF (DECADRON) injection 10 mg [...] patient complains of pain on injection, may mctpuv77-81 mg in 5 mL and push over [...] AssessmentNoted TimePHQ-9 Depression Total Score: 9:26 AM IT SECURITY ARCHITECT documented as of this encounter Care Teams Team MemberRelationshipSpecialtyStart [address] [address] PCP - Zvchskg14/8/25documented as of this encounter
--- OUTSIDE RECORDS SUMMARY | 2025-09-07 22:29 | XMS_ITS | Clinical Summary ---
Author Organization [facility] Address [address] [place] [address] Care Team Providers Care Insurance Sales Specialist Name Role Phone Amari Hanley Pharm D Unavailable [phone] Navjot Segal Primary Care Provider [phone] Allergies Active AllergyReactionsCriticalityNoted DateCommentsBuspironeItchingMedium 07/07/2019 tingling JkgcvdvwnnuFqckmcelaccSwdz61/06/9340BfirfbeoyjqfGornxlcxhulFmtr98/06/2016 EzwnnpvjmkYwwzbqxplqp04/18/9577SzxegaxkWayofcpZtsfxc22/20/2019Penicillins SozhmncrfrzJlol75/10/2024Famotidine-Ca Carb-Mag Cakssz2204/03/2023Topiramate LayebloJni68/16/2022Hydrocodone-JrqjnrjymglwvRddsrfmBnjadw20/06/2020 Medications MedicationSigDispense QuantityRefillsLast FilledStart DateEnd DateStatus acetaminophen (TYLENOL) 500 mg oral tablet Take 1 tablet (500 mg) by mouth every 6 (six) hours as needed.Active ammonium lactate 12% (LAC-HYDRIN) 12 % Top cream cream Apply 1 Application to skin once a day as needed. 1 Bottle Active ibuprofen 600 mg oral tablet Take by mouth every 6 (six) hours as needed.Active levonorgestreL (MIRENA) 20 mcg/24 hours (5 yrs) 52 mg IU IUD 1 Device by Intrauterine route.Active hydrOXYzine (ATARAX) 10 mg oral tablet Take 1 tablet (10 mg) by mouth twice a day as needed. 60 tablet ctive triamcinolone acetonide (KENALOG) 0.1% cream APPLY TO AFFECTED AREAS ON HAND TWICE DAILY TKPNYN4710/19/2021ctive clotrimazole-betamethasone 1%-0.05% (LOTRISONE) 1-0.05 % Top cream cream APPLY TOPICALLY TO THE AFFECTED AREA TWICE DAILY FOR 10 DAYS12/21/2021ctive EPINEPHrine (EPIPEN) 0.3 mg/0.3 mL Injection auto-injector Indications:Multiple allergiesInject 0.3 mL (0.3 mg) into the muscle one time as needed, may repeat x 1 for acute allergic reaction. 1 each ctive Cholecalciferol, Vitamin D3, 50 mcg (2,000 unit) oral capsule Take by mouth once daily.02/23/2022ctive albuterol HFA (PROVENTIL;VENTOLIN HFA) 90 mcg/actuation Inhl inhaler Inhale 2 puffs every 6 (six) hours as needed. 8 g 03/28/2022ctive albuterol-ipratropium, conc: 3-0.5mg/3mL, (DUO-NEB) Inhl nebulizer solution Nebulize 3 mL every 6 (six) hours as needed. 90 mL 03/30/2022ctive melatonin 3 mg oral tablet Take 1 tablet (3 mg) by mouth.09/21/2022ctive hydrOXYzine pamoate (VISTARIL) 25 mg oral capsule Indications:Rjsbccc2610/19/2022ctive cycloSPORINE 0.05 % ophthalmic (EYE) emulsion Instill 1 drop into the eye every 12 (twelve) hours.11/16/2022ctive valACYclovir (VALTREX) 500 mg oral tablet Take 1 tablet (500 mg) by mouth.11/03/2022ctive ondansetron (ZOFRAN) 4 mg oral ODT Indications:NauseaDissolve 2 tablets (8 mg) in mouth every 12 (twelve) hours as needed for nausea. 30 tablet 12/21/2022ctive polyethylene glycol (MIRALAX) 17 gram oral powder Indications:Drug-induced constipationTake 17 g by mouth once daily. Mix each dose in 4-8 ounces of liquid as directed. 1700 g ctive docusate sodium (COLACE) 50 mg oral Cap Indications:Drug-induced constipationTake 1-2 capsules (50-100 mg) by mouth once a day as needed. 90 capsule ctive cetirizine (ZYRTEC) 10 mg oral tablet Take 1 tablet (10 mg) by mouth once daily. 90 tablet ctive lansoprazole (PREVACID) 15 mg oral delayed release capsule Take 1 capsule (15 mg) by mouth once daily. 90 capsule ctive ketoconazole (NIZORAL) 2 % Top Sham shampoo Apply 1 mL to skin as needed.09/24/2024tive fluticasone (FLONASE) 50 mcg/actuation nasal spray Instill 2 sprays into EACH nare ONCE DAILY.Active fluocinonide (LIDEX) 0.05 % Top solution Apply 1 Application to skin twice a day. As mleyaa8509/24/2024tive clobetasol (TEMOVATE) 0.05 % Top cream Apply 1 Application to skin twice a day. As aizewz7409/24/2024tive DULoxetine 40 mg oral CpDR Take 1 capsule by mouth every 24 (twenty-four) hours.08/02/2024ctive clonazePAM (KLONOPIN) 1 mg oral tablet Take 1 tablet (1 mg) by mouth. Up to 1mg as needed for fuyklkl7109/06/2024ctive semaglutide (WEGOVY) 2.4 mg/0.75 mL SubQ pen injector Indications:Class 1 obesity with serious comorbidity and body mass index (BMI) of 30.0 to 30.9 in adult, unspecified obesity typeInject 2.4 mg under the skin every 7 (seven) days. 9 mL 12/30/2024tive metoprolol tartrate (LOPRESSOR) 25 mg oral tablet Indications:Palpitations,PAC (premature atrial contraction),Symptomatic PVCsTake 0.5 tablets (12.5 mg) by mouth twice a day. 90 tablet 5Active Active Problems ProblemNoted DateDiagnosed DateMRSA (methicillin resistant staph aureus) culture izpduqfq31/16/2024Heart nyisehdyysne00/22/2023Symptomatic PVCs02/06/2023lass 1 obesity with body mass index (BMI) of 33.0 to 33.9 in adult03/03/2022High yepchhpoaxnws89/17/2020 Overview (03/31/2023): 150 in 2019, recheck at 2020 annual 150 in 2019, recheck at 2020 annual 150 in 2019, recheck at 2020 annual 150 in 2019, recheck at 2020 annual 150 in 2019, recheck at 2020 annual IUD (intrauterine device) in place11/04/2019 Overview (03/31/2023): IUD type: Mirena Lot # [id number] FORMERLY NAMED [facility]# [id number] Due to be removed on or before 11/04/2024 IUD type: Mirena Lot # [id number] FORMERLY NAMED [facility]# [id number] Due to be removed on or before 11/04/2024 IUD type: Mirena Lot # [id number] FORMERLY NAMED [facility]# [id number] Due to be removed on or before 11/04/2024 Missed asvsgqpd66/28/2018 Overview (06/08/2020): Overview: 03-13-18. See phone notes Asthma, dhcconivmvkr44/25/2018Controlled substance agreement ptvzli0711/16/2017 Overview (01/25/2022): Diagnosis: Panic attack Medication: clonazepam Controlled Substance Agreement reviewed and signed: yes Date agreement signed: 11/16/2017 Refill plan: 30 q 6 months Clinician: Miguelina Hansen PA-C Overview: Diagnosis: Panic attack Medication: clonazepam Controlled Substance Agreement reviewed and signed: yes Date agreement signed: 11/16/2017 Refill plan: 30 q 6 months Clinician: Miguelina Hansen PA-C Overview: Diagnosis: Panic attack Medication: clonazepam Controlled Substance Agreement reviewed and signed: yes Date agreement signed: 11/16/2017 Refill plan: 30 q 6 months Clinician: Miguelina Hansen PA-C Diagnosis: Panic attack Medication: clonazepam Controlled Substance Agreement reviewed and signed: yes Date agreement signed: 11/16/2017 Refill plan: 30 q 6 months Clinician: Miguelina Hansen PA-C Recurrent candidiasis of plmggq8410/03/2017Chronic fadffixr85/19/2017PTSD (post- traumatic stress disorder)06/03/2014GERD (gastroesophageal reflux disease) 12/28/20120979Fazaimr29/15/2013 Overview (01/25/2022): Patient is followed by Mili Cary PA-C for ongoing prescription of benzodiazepine medication. All refills should only be approved by this provider, or covering partner. Medication(s): Clonazepam 1mg. Maximum quantity per 90 Days: 20 Clinic visit frequency required: Q 6 months Controlled substance agreement: signed on 11/03/2016 Encounter-Level CSA: There are no encounter-level csa. Pain Clinic evaluation in the past:She is not currently treated by Psychiatry DIRE Total Score(s): Not indicated Last [employer] website verification: Yes 08/07/2017- Patient filled Rx 03/08/2017 for ACETAMINOP- CODEINE 120 from a non [facility] provider. [email or web address] Overview: Overview: Formatting of this note may be different from the original. Patient is followed by Mili Cary PA-C for ongoing prescription of benzodiazepine medication. All refills should only be approved by this provider, or covering partner. Medication(s): Clonazepam 1mg. Maximum quantity per 90 Days: 20 Clinic visit frequency required: Q 6 months Controlled substance agreement: signed on 11/03/2016 Encounter-Level CSA: There are no encounter-level csa. Pain Clinic evaluation in the past:She is not currently treated by Psychiatry DIRE Total Score(s): Not indicated Last [facility] website verification: Yes 08/07/2017- Patient filled Rx 03/08/2017 for ACETAMINOP- CODEINE 120 from a non [facility] provider. [email or web address]/ Overview: Overview: Formatting of this note may be different from the original. Patient is followed by Mili Cary PA-C for ongoing prescription of benzodiazepine medication. All refills should only be approved by this provider, or covering partner. Medication(s): Clonazepam 1mg. Maximum quantity per 90 Days: 20 Clinic visit frequency required: Q 6 months Controlled substance agreement: signed on 11/03/2016 Encounter-Level CSA: There are no encounter-level csa. Pain Clinic evaluation in the past:She is not currently treated by Psychiatry DIRE Total Score(s): Not indicated Last [facility] website verification: Yes 08/07/2017- Patient filled Rx 03/08/2017 for ACETAMINOP- CODEINE 120 from a non [facility] provider. [email or web address] Patient is followed by Mili Cary PA-C for ongoing prescription of benzodiazepine medication. All refills should only be approved by this provider, or covering partner. Medication(s): Clonazepam 1mg. Maximum quantity per 90 Days: 20 Clinic visit frequency required: Q 6 months Controlled substance agreement: signed on 11/03/2016 Encounter-Level CSA: There are no encounter-level csa. Pain Clinic evaluation in the past:She is not currently treated by Psychiatry DIRE Total Score(s): Not indicated Last [facility] website verification: Yes 08/07/2017- Patient filled Rx 03/08/2017 for ACETAMINOP- CODEINE 120 from a non [facility] provider. [email or web address] Overview: Overview: Formatting of this note may be different from the original. Patient is followed by Mili Cary PA-C for ongoing prescription of benzodiazepine medication. All refills should only be approved by this provider, or covering partner. Medication(s): Clonazepam 1mg. Maximum quantity per 90 Days: 20 Clinic visit frequency required: Q 6 months Controlled substance agreement: signed on 11/03/2016 Encounter-Level CSA: There are no encounter-level csa. Pain Clinic evaluation in the past:She is not currently treated by Psychiatry DIRE Total Score(s): Not indicated Last [facility] website verification: Yes 08/07/2017- Patient filled Rx 03/08/2017 for ACETAMINOP- CODEINE 120 from a non [facility] provider. [email or web address] Overview: Formatting of this note may be different from the original. Patient is followed by Mili Cary PA-C for ongoing prescription of benzodiazepine medication. All refills should only be approved by this provider, or covering partner. Medication(s): Clonazepam 1mg. Maximum quantity per 90 Days: 20 Clinic visit frequency required: Q 6 months Controlled substance agreement: signed on 11/03/2016 Encounter-Level CSA: There are no encounter-level csa. Pain Clinic evaluation in the past:She is not currently treated by Psychiatry DIRE Total Score(s): Not indicated Last [facility] website verification: Yes 08/07/2017- Patient filled Rx 03/08/2017 for ACETAMINOP- CODEINE 120 from a non [facility] provider. [email or web address] Panic efilsdet29/10/2013Headache, variant jbdemzff81/27/0752Pgwgpr23/20/2010 Chronic yswkstvqvbvh02/15/2010Genital udadsy5107/02/2010 Overview (01/25/2022): Overview: Overview: Started Acyclovir on 09/22/16 at 38w1d. Patient states she has been taking 1 pill every other day up till this point. She states she has not had an outbreak for 8 years. Overview: Started Acyclovir on 09/22/16 at 38w1d. Patient states she has been taking 1 pill every other day up till this point. She states she has not had an outbreak for 8 years. Resolved Problems ProblemNoted DateDiagnosed DateResolved DateEncounter for elective induction of laborLactating fsnibl93NSVD (normal spontaneous vaginal delivery)Supervision of elderly multigravida in third bgspbrzwo44 Overview (06/08/2020): 01/02 Major depressive disorder, recurrent episode, iqmxxekn81 Immunizations ImmunizationAdministration DatesNext DueHep B Adult11/06/2013,10/04/2013 Influenza recombinant (FluBlok Quadrivalent PF)11/03/2022,06/12/2021,06/23/2020, 08/15/2017,07/06/2015,06/05/2014Influenza split virus (Fluzone Quadrivalent PF) 09/15/2023Influenza split virus knhdtyurlcyl45/24/2013,10/02/2012,07/09/2010, 06/15/2009MMR09/30/2016Pfizer 12+ Yrs Bivalent COVID Vaccine (riley cap) 3Pneumococcal ATX71952Pneumococcal Polysaccharide PPSV23 12/18/2017,12/29/2010SPIKEVAX (Moderna) 12+ Yrs Monovalent COVID Vaccine (registered clinical dietitian)07/25/2021,10/14/2020,09/16/2020Tdap10/26/2018,07/14/2016,06/04/2013, 06/15/2009 Family History Medical HistoryRelationCommentsAlcohol AbuseFatherHeart DiseaseMaternal GrandfatherHeart DiseaseMaternal GrandmotherDiabetesMotherType 2 Diabetes MellitusDiabetesSister 1Type 1 Diabetes MellitusDrug AbuseSister 1RecoveredNo Known ProblemsSister 2Breast CancerNeg Family HxOvarian CancerNeg Family Hx RelationStatusCommentsFatherDeceasedMaternal GrandfatherDeceasedMaternal GrandmotherDeceasedMotherAlivePaternal GrandfatherDeceasedPaternal Grandmother DeceasedSister 1AliveSister 2Alive Social History Tobacco UseTypesPacks/DayYears UsedDateSmoking Tobacco: FormerCigarettes0.520 04/18/2002 - 04/18/2022E - CigarettesPassive Smoke Exposure: PastSmokeless Tobacco: Never Tobacco Cessation:Counseling Given: Not Answered Comments:Currently vaping PRN for stress, no nicotine Alcohol UseStandard Drinks/WeekCommentsYes0 (1 standard drink = 0.6 oz pure alcohol)Rare, 1-2 times per yearHumiliation, Afraid, Rape, and Kick questionnaireAnswerDate RecordedWithin the last year, have you been afraid of your partner or ex-partner?No02/01/2024Within the last year, have you been humiliated or emotionally abused in other ways by your partner or ex-partner?No 02/01/2024Within the last year, have you been kicked, hit, slapped, or otherwise physically hurt by your partner or ex-partner?No02/01/2024Within the last year, have you been raped or forced to have any kind of sexual activity by your part ner or ex-partner?No02/01/2024HQ-2AnswerDate RecordedPHQ2 Kctiq672 CommentsNoSex and Gender InformationValueDate RecordedSex Assigned at AubmfZhbjax25/21/2020 12:00 PM CDTLegal HloDumfoe47/06/2016 6:12 PM CDTGender TdhhrfcgKrgmio99/21/2020 12:00 PM CDTSexual MuuoosshmmxWxswcmhy57/21/2020 12:00 PM CDT Last Filed Vital Signs Vital SignReadingTime TakenCommentsBlood Crycfnot110/7402/01/2024 9:01 PM CDT Iengl972802/01/2024 9:01 PM OBBOdmparpgdsi55.4 ??C (97.5 ??F)02/01/2024 9:01 PM CDTRespiratory Adfs829302/01/2024 9:01 PM CDTOxygen Glzkpteklu36%02/01/2024 9:01 PM CDTInhaled Oxygen Concentration--Peoqsz02.2 kg (190 lb)11/11/2024 9:09 AM CHARACTER IMPERSONATOR Qadlcg025.6 cm (5' 6)12/19/2023 9:42 AM CDTBody Mass Index30.67012/19/2023 9:42 AM CDT Plan of Treatment Health MaintenanceDue DateLast DoneCommentsHPV Vaccine (1 - 3-dose SCDM series) 2010nxiety Follow-Up (YEHUDA-7)epression Assessment (PHQ-2), 07/12/2023epression Follow-Up (PHQ-9)07/12/2024 07/12/2023Lipid Hplqpeqva20/29/659422, 02/01/2022, 03/04/2021, Additional history existsCOVID-19 Vaccine ( season)2025 05/20/2024, 08/24/2023, 11/03/2022, Additional history existsInfluenza Vaccine (#1)509/10/2023, 09/15/2023, 06/14/2023, Additional history exists Mammogram Pbjdawzme17/09/194257/ap Smear/, 12/04/2017 (Previously completed)Adult Tetanus Dfjouwk39/, 10/26/2018, 07/14/2016, Additional history existsRSV Vaccines (1 - 1-dose 75+ series) 2058Pneumococcal QcecokpZxltaifcm82/17/2022, 12/18/2017, 12/29/2010 Hepatitis C DgfylldkkRolxjevxu86/29/2023, 11/03/2022, 02/01/2022Meningococcal B VaccineAged OutNo longer eligible based on patient's age to complete this topic Procedures Procedure NamePriorityDate/TimeAssociated DiagnosisCommentsMAMMO LORENA SCREENING XIYqfnaro16/09/2024 11:31 AM CHARACTER IMPERSONATOR Visit for screening mammogram HCV ANTIBODY ([facility])Unztbbe8009/15/2023 8:05 AM CHARACTER IMPERSONATOR Screening for STDs (sexually transmitted diseases) LIPID PANEL ([facility])Wdpebok8109/15/2023 8:05 AM CHARACTER IMPERSONATOR Lipid screening EROSION CONTROL COORDINATOR PAP/APTIMA HPV W/REFLEX TO HPV GENOTYPES ([facility])Vqymtho8511/03/2022 8:51 AM CHARACTER IMPERSONATOR Pap smear for cervical cancer screening from Last 3 Months or Most Recently Relevant to Health Maintenance Results * MAMMO LORENA SCREENING BI (10/27/2023 11:31 AM CHARACTER IMPERSONATOR)Anatomical RegionLaterality ModalityBreastBilateralMammographySpecimen (Source)Anatomical Location / LateralityCollection Method / VolumeCollection TimeReceived Time Impressions 10/27/2023 12:58 PM CHARACTER IMPERSONATOR : NEGATIVE There is no mammographic evidence of malignancy. ?? RECOMMENDATION: ? - A screening mammogram in 1 year. BI-RADS: Overall: 1 - Negative The patient will be notified of the results. REPORT SIGNED BY Abhijeet Kinney MD Narrative 10/27/2023 12:58 PM CHARACTER IMPERSONATOR EXAM: MAMMO LORENA SCREENING BI REASON FOR EXAM: Routine screening mammogram COMPARISON: ??No comparisons were made when reading this study. TECHNIQUE: Craniocaudal and oblique digital views were obtained. ??Tomosynthesis technique was also utilized. Current study was evaluated with Computer Aided Detection (CAD) system. FINDINGS: The breasts are heterogeneously dense. ??No significant masses, calcifications, or other findings are seen in either breast. ??This is a baseline mammogram. ?? Authorizing ProviderResult TypeResult StatusBejay Lau MDMAMMO ORDERABLE Final Result * HCV ANTIBODY ([facility]) (09/15/2023 8:05 AM CHARACTER IMPERSONATOR)ComponentValueRef RangeTest MethodAnalysis TimePerformed AtPathologist SignatureHepatitis C Virus Antibody ([facility])Non ReactiveNon Eegteeig17/30/2023 11:08 AM CSTLABCORP OF [place] Comment: HCV antibody alone does not differentiate between previously resolved infection and active infection. Equivocal and Reactive HCV antibody results should be followed up with an HCV RNA test to support the diagnosis of active HCV infection. Specimen (Source)Anatomical Location / LateralityCollection Method / Volume Collection TimeReceived TimeBloodVenipuncture / Pnrkbfz9509/15/2023 8:05 AM CHARACTER IMPERSONATOR 09/15/2023 8:05 AM CHARACTER IMPERSONATOR Narrative [facility] - 09/16/2023 11:08 AM CHARACTER IMPERSONATOR Performed at: 01 - Lab[address] [place], [place] ??[id number] Interior Decorator: Rex Amos MD, Phone: ??[phone] Authorizing ProviderResult TypeResult StatusBejay Lau MDLABCORP ORDERABLESFinal ResultPerforming OrganizationAddressCity/State/ZIP CodePhone Number [facility] [address] [place] [address] * (ABNORMAL) LIPID PANEL ([facility]) (09/15/2023 8:05 AM CHARACTER IMPERSONATOR)ComponentValueRef RangeTest MethodAnalysis TimePerformed AtPathologist SignatureCholesterol ([facility])978947 - 199 mg/dL09/16/2023 7:10 AM CSTLABCORP OF [place] Triglycerides ([facility])1370 - 149 mg/dL09/16/2023 7:10 AM [facility]STLABC[facility]olesterol ([facility])37(L)>39 mg/dL09/16/2023 7:10 AM CSTLABCORP OF AMERICAVLDL Cholesterol [place] ([facility])245 - 40 mg/dL09/16/2023 7:10 AM CHARACTER IMPERSONATOR [facility] Cholesterol Calc - NIH ([facility])940 - 99 mg/dL09/16/2023 7:10 AM CSTLABCORP [facility]ITALSpecimen (Source)Anatomical Location / Laterality Collection Method / VolumeCollection TimeReceived TimeBloodVenipuncture / Mgvfjfy1309/15/2023 8:05 AM CST09/15/2023 8:05 AM CHARACTER IMPERSONATOR Narrative [facility] [place] - 09/16/2023 7:10 AM CHARACTER IMPERSONATOR Performed at: 01 - [facility] ??[id number] Interior Decorator: Rex Amos MD, Phone: ??[phone] Authorizing ProviderResult TypeResult StatusBetlehem Viri Lau MDL[facility] ORDERABLESFinal ResultPerforming OrganizationAddressCity/State/ZIP CodePhone Number [facility] [address] [place] [address] * EROSION CONTROL COORDINATOR PAP/APTIMA HPV W/REFLEX TO HPV GENOTYPES ([facility]) (11/03/2022 8:51 AM CHARACTER IMPERSONATOR)ComponentValueRef RangeTest MethodAnalysis TimePerformed AtPathologist SignatureDiagnosis: ([facility])Kqhkbhc7111/06/2022 12:05 AM CSTLABCORP OF [place] Comment:NEGATIVE FOR INTRAEPITHELIAL LESION OR MALIGNANCY.Specimen Adequacy: ([facility])Ufjcmdu9711/06/2022 12:05 AM CSTLABCOINOVA FAIRFAX HOSPITALComment:Satisfactory for evaluation. Endocervical and/or squamous metaplasticcells (endocervical component)are present.Clinician Provided ICD10: ([facility])Vxhxquw7911/06/2022 12:05 AM CSTLABRUSSELL COUNTY MEDICAL CENTERComment:Z12.4Performed by:Uwotcqz3411/06/2022 12:05 AM [facility]:Iza Thao, Director Of Instruction (ASCP)Cyto Comments ([facility]).11/06/2022 12:05 AM CSTLABCOMENDOTA MENTAL HEALTH INSTITUTEote: ([facility])Zpbfelz8911/06/2022 12:05 AM [facility] Comment: The Pap smear is a screening test designed to aid in the detection of premalignant and malignant conditions of the uterine cervix. ??It is not a diagnostic procedure and should not be used as the sole means of detecting cervical cancer. ??Both false-positive and false-negative reports do occur. HPV Aptima ([facility])InhdtkptMcxpyiar94/19/2023 12:05 AM [facility] Comment:This nucleic acid amplification test detects fourteen high-riskHPV types (16,18,31,33,35,39,45,51,52,56,58,59,66,68) withoutdifferentiation.HPV Genotype Reflex ([facility])Qcwzbpq1411/06/2022 12:05 AM [facility]ITALComment:Criteria not met, HPV Genotype not performed.Test Methodology ([facility])Nhdccvf8411/06/2022 12:05 AM [facility]ITALComment:This liquid based ThinPrep(R) pap test was screened with theuse of an image guided system.Specimen (Source)Anatomical Location / LateralityCollection Method / VolumeCollection TimeReceived TimePap 11/03/2022 8:51 AM CST11/03/2022 8:51 AM CHARACTER IMPERSONATOR Narrative [facility] - 11/06/2022 12:05 AM CHARACTER IMPERSONATOR Specimen Comment: [id number] Specimen Comment: Source.............Cervix Specimen Comment: LMP / Prev Treat...None Specimen Comment: No. of containers..01 ThinPrep Vial Performed at: ??01 - [facility] [place] [address], [place], [place] ??[id number] Interior Decorator: Prem Simons MD, Phone: ??[phone] Performed at: ??02 - [facility] [place] [address], [place], [place] ??[id number] Interior Decorator: Prem Simons MD, Phone: ??[phone] Authorizing ProviderResult TypeResult StatusKiisabelle PALMA-[facility] ORDERABLESFinal ResultPerforming OrganizationAddressCity/State/ZIP CodePhone Number [facility] [place] [address] [place] [address] from Last 3 Months or Most Recently Relevant to Health Maintenance Insurance * Guarantor: Katelynn Jones TypeRelation to PatientDate of BirthPhone Billing AddressPersonal/JutezfJydd98/14/[id number] [place] [address] * Guarantor: Katelynn Jones TypeRelation to PatientDate of BirthPhone Billing AddressPersonal/FuftepQdot47/14/[id number] [place] [address] * Guarantor: Katelynn Jones TypeRelation to PatientDate of BirthPhone Billing PkrpuziJARTMCpmp[address] [place], [place] [id number] * Guarantor: Katelynn Jones TypeRelation to PatientDate of BirthPhone Billing AddressPersonal/EposrkPykw[address] [place] [address] * Guarantor: Katelynn Jones TypeRelation to PatientDate of BirthPhone Billing AddressPersonal/FpboouQrfr[address] [place] [address] * Guarantor: Katelynn Jones TypeRelation to PatientDate of BirthPhone Billing AddressPersonal/ZemvlaQqsr[address] [place] [address] [place] [address] [place] [address] [place] [address] [place] [address] Care Teams Team MemberRelationshipSpecialtyStart DateEnd Navjot Segal [address] [place] [address] PCP - GeneralFamily Medicine01/14/25 Amari Hanley, Pharm D [address] [place] [address] 02/06/23
--- OUTSIDE RECORDS SUMMARY | 2025-09-07 22:29 | XMS_ITS | Patient Health Record ---
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 Name Role Phone Miriam Arteaga Primary Care Provider Allergies Allergen (clinical drug ingredient) Drug/Non Drug Allergy documented on EMR Reaction Allergy Type Onset Date Status clindamycin Clindamycin HCl Unknown Drug Allergy ActiveerythromycinErythromycinUnknownDrug AllergyActiveVicodinUnknownDrug AllergyActivebuspironeBuspironeUnknownDrug AllergyActivemorphineMorphineUnknown Drug AllergyActive Reason For Referral No Information Medications Medication SIG (Take, Route, Frequency, Duration) Notes Start Date End Date Status hydrOXYzine HCl ActiveL-MethylfolateActiveVentolin HFAActiveLidocaine HCl 2 %1 application as needed Externally Three times a day as needed; Duration: 14 days2Active TylenolActiveMirenaActiveLyricaActiveColaceActivePepcidActiveAlbuterol Sulfate HFAActiveKlonoPINActiveFlonaseActive Problems Problem Type SNOMED Code ICD Code Onset Dates Problem Status W/U Status Risk Notes Problem Anal fissure (74616993) Anal fissure (K60 .2) Activeconfirmed Plan Of Treatment No Information Insurance Providers Payer Name Payer Address Payer Phone Subscriber Number Group Number Insured Name Patient Relationship to Insured Coverage Start Date Coverage End Date [employer] [facility] [address] [address] [place] [id number] Katelynn Jones Self - patient is the insured 1 [facility] [address] [place] [id number] Heriberto Joneself - patient is the [id number] 2019 Medical (General) History Medical History History ICD Code major depressive disorder anxietyPTSDchronic constipationherpesGERDpanic disorderSurgical History Surgery Date(Month/Year) tonsil and adenoidectomy D&Csalpingectomy
--- OUTSIDE RECORDS SUMMARY | 2025-09-07 22:29 | XMS_ITS | Clinical Summary ---
Author Organization [facility] Address [address] [place] [address] Care Team Providers Care Laborer Driver Name Role Phone Clinic, [facility] Primary Care Provider [phone] Allergies Active AllergyReactionsCriticalityNoted DateCommentsClindamycinAnaphylaxisHigh 06/09/2015 Patient said that her throat and tongue started to swell up. Went the [facility]. TofugfinynzbKluwqtcszbnPzan58/23/2016 Throat swelling Medications MedicationSigDispense QuantityRefillsLast FilledStart DateEnd DateStatus albuterol (PROVENTIL HFA) 108 (90 BASE) MCG/ACT inhaler Indications:Chest tightness,Intermittent asthma with allergic rhinitisInhale 2 puffs into the lungs every 6 hours 1 Inhaler Active EPINEPHrine 0.3 MG/0.3ML injection 2-pack Inject 0.3 mg into the mgdsfj4306/08/2015ctive acetaminophen (TYLENOL) 500 MG tablet Take 500 mg by mouth every 6 hours as needed for mild painActive valACYclovir (VALTREX) 500 MG tablet Take 500 mg by mouth 2 times daily as neededActive ibuprofen (ADVIL/MOTRIN) 600 MG tablet Take 600 mg by mouth every 8 hours as needed for moderate painActive levonorgestrel (MIRENA) 20 MCG/24HR IUD Indications:Encounter for insertion of intrauterine contraceptive device1 each (20 mcg) by Intrauterine route once [facility]- 74753-481-84 [id number] EXP-2Active Active Problems Patient Care Coordination No te Formatting of this note migh t be different from the original. Benzodiazepine use with Controlled Substance Agreement/Plan -To find plan for this patient search for details found in PROBLEM LIST. Look for ANXIETY diagnosis, open OVERVIEW. ProblemNoted DateDiagnosed DateIUD (intrauterine device) in place11/04/2019 Overview (11/04/2019): IUD type: Mirena Lot # [id number] [facility]# [id number] Due to be removed on or before 11/04/2024 High wvkabxlwdyztu70/17/2020 Overview (11/04/2019): 150 in 2019, recheck at 2020 annual Encounter for elective induction of labor01/02/2019NSVD (normal spontaneous vaginal delivery)01/02/2019Lactating fgyyrt1301/02/2019Supervision of elderly multigravida in third mrgmenzul47/26/2018 Overview (01/04/2019): 01/02 Controlled substance agreement anogmk5311/16/2017 Overview (10/12/2018): Overview: Diagnosis: Panic attack Medication: clonazepam Controlled Substance Agreement reviewed and signed: yes Date agreement signed: 11/16/2017 Refill plan: 30 q 6 months Clinician: Miguelina Hansen PA-C Recurrent candidiasis of dmklnd3210/03/2017Panic dmqivbvw28/19/2017Major depressive disorder, recurrent episode, /20/2017GERD (gastroesophageal reflux disease)12/28/20123236Bjmojdk69/15/2013 Overview (10/12/2018): Patient is followed by Mili Cary PA-C [...] Psychiatry DIRE Total Score(s): Not indicated Last [facility] website verification: Yes 08/07/2017- Patient filled Rx 03/08/2017 for ACETAMINOP- CODEINE 120 from a non [facility] provider. [email or web address] Overview: Overview: Formatting of this note may [...] Psychiatry DIRE Total Score(s): Not indicated Last [facility] website verification: Yes 08/07/2017- Patient filled Rx 03/08/2017 for ACETAMINOP- CODEINE 120 from a non [facility] provider. [email or web address] Headache, variant daepndrp82/27/2011Genital dhkcui8407/02/2010 Overview (12/08/2018): Chronic xrnjvnikogtf40/15/2010sthma, intermittent Resolved Problems ProblemNoted DateDiagnosed DateResolved DatePositive GBS test12/17/2018 01/04/2019Herpes zoster with gzihvgrxzhwx55 Overview (11/22/2018): Dx 11/21/18. On Valtrex. Consulted with [facility]. Keep covered with Tegaderm until crusted over. No other follow up is needed. Abnormal ultrasound; AC Overview (11/15/2018): 11/15/18: Abdominal circumference 9%ile. M recommended follow up US at 35 weeks. Indication for care in labor or gjxvqrjf13Pyelectasis of fetus on Overview (11/15/2018): Rt kidney 4mm Lt kidney 3mm 11/15/18: Resolved at [facility] Presence of intrauterine contraceptive dxzckd97Encounter for IUD afmdxdpmq92 Overview (11/08/2016): LOT [id number], placed 11/08/16 Indication for care in labor and delivery, zdpencalkx30NSVD (normal spontaneous vaginal delivery)Indication for care in labor or hqffnnmj77Tobacco use wthipevy10 Overview (06/14/2016): Was smoking 1 ppd, now down to 2 cig/day sometimes none. Supervision of other normal , hhayccsyqu54 Overview (07/14/2016): FOB: Sacha NELIA: 10/05/16 HR FOB: Sacha Estimated Date of Delivery: Oct 05, 2016 BT: A+ Genetic: WNL Sex: Boy Placenta: Posterior Tdap: 07/14/16 Flu: Declined GBS: Problems F/U next visit GCT/OBHGB= Passed 128/11.9 : class: Childbirth ed: Peds: Circumcision: control: PP help: Hospital registration: Done Hospital tour: Plan: Rubella non-immune status, yzzdbosazb60Tobacco use disorder 12/10/Coital qmrsauxd52IUD (intrauterine device) in placeNexplanon in placebdominal pain in hybksfzqy84ctive laborVaginal delivery Encounter for supervision of normal in noldmcnzgmoq83 Overview (07/20/2015): Diagnosis updated by automated process. Provider to review and confirm. Decreased sfldhmwd27bnormal glucose tolerance test Preterm laborLabor and delivery indication for care or dsmjnbkfqbyi93bdominal cramping Placenta gapotn71Nausea/vomiting in mwjfcoeiu34nkle painCARDIOVASCULAR SCREENING; LDL GOAL LESS THAN 62239IUD (intrauterine device) in placeMild major qpfqtuokev20Tobacco abuseSupervision of normal first ftuysgqed11/17/2009 07/13/2009 Encounters DateTypeDepartmentCare SaqxIbruyoyqbfv43/08/2025 10:29 PM TRANSPORTATION EQUIPMENT PAINTER - 07/27/2025 12:32 AM [facility] [address] [place] [id number] Jeyson Reed MD Migraine without status migrainosus, not intractable, unspecified migraine type (Primary Dx) Discharge Disposition: Left Against Medical Rbgndh9207/26/2025Travelfrom Last 3 Months Immunizations ImmunizationAdministration DatesNext LcwAshL9011/06/2013,10/04/2013Influenza (H1N1)09/16/2009Influenza (IIV3) PF06/11/2013,10/02/2012,07/09/2010,06/15/2009 Influenza Vaccine >6 months,quad, PF08/15/2017,07/06/2015,06/05/2014MMR (MMRII) 09/30/2016Mantoux Tuberculin Skin Test11/06/2013Pneumococcal 23 wcjovc19/10/2017 ,12/29/2010TDAP Vaccine (Adacel)10/26/2018,07/14/2016,06/04/2013,06/15/2009 Family History Medical HistoryRelationCommentsThyroid DiseaseDaughter 3CirculatoryFatherAsthma Maternal GrandfatherCardiovascularMaternal GrandfatherCerebrovascular Disease Maternal GrandfatherCoronary Artery DiseaseMaternal GrandfatherDiabetesMaternal GrandfatherCerebrovascular DiseaseMaternal GrandmotherCoronary Artery Disease Maternal GrandmotherAllergiesMotherAsthmaMotherDiabetesMotherGallbladder Disease MotherObesityMotherGastric BypassThyroid DiseaseMotherUnknown/AdoptedPaternal GrandfatherUnknown/AdoptedPaternal GrandmotherRelationStatusCommentsDaughter 1 AliveDaughter 2AliveDaughter 3FatherDeceasedMaternal GrandfatherDeceasedMaternal GrandmotherDeceasedMotherAlivePaternal GrandfatherPaternal GrandmotherSister 1 AliveSister 2AliveSister 3Alive Social History Tobacco UseTypesPacks/DayYears UsedDateSmoking Tobacco: Some DaysCigarettes0.515 Smokeless Tobacco: Never Tobacco Cessation:Ready to Q uit: No; Counseling Given: Yes Alcohol UseStandard Drinks/WeekCommentsNo0 (1 standard drink = 0.6 oz pure alcohol)PHQ-2AnswerDate RecordedPHQ-2 Rxpwg067Edinburgh Depression ScaleAnswerDate RecordedEdinburgh Depression Scale Total1 01/03/2019Last EPDS Self Harm ResultNot on file01/03/2019Adolescent Education AnswerDate RecordedGetting School Help NeededNot on file3 CommentsNoSex and Gender InformationValueDate RecordedSex Assigned at BirthNot on fileLegal WbbSyaiqz80/04/2012 4:09 AM CSTGender IdentityNot on fileSexual OrientationNot on fileOccupationIndustryJob Start DateJob End Date 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/admin specialistNot on fileNot on fileNot on file Last Filed Vital Signs Vital SignReadingTime TakenCommentsBlood Zgrhjieb195/7511 10:23 PM TRANSPORTATION EQUIPMENT PAINTER Rbdbb2125 10:23 PM QKOUyydwolngis44.5 ??C (97.7 ??F)07/26/2025 10:23 PM CSTRespiratory Lmuj487509/25/2024 10:23 PM CSTOxygen Iriyqmcuve12%07/26/2025 10:23 PM CSTInhaled Oxygen Concentration--Haljcs53.2 kg (203 lb 4.2 oz)07/26/2025 10:23 PM NNALcoogl812.2 cm (5' 7)07/26/2025 10:23 PM CSTBody Mass Index31.84 07/26/2025 10:23 PM TRANSPORTATION EQUIPMENT PAINTER Plan of Treatment Health MaintenanceDue DateLast DoneCommentsADVANCE CARE CLVGLCSQ1983ANNUAL REVIEW OF HM VJOXCA8107/01/1983HEPATITIS B VACCINE (3 of 3 - 19+ 3-dose series) , 11/06/2013, 10/04/2013, Additional history existsASTHMA CONTROL TEST, 01/25/2016, 12/11/2015, Additional history existsASTHMA ACTION PLAN, 11/03/2016, 10/06/2015, Additional history existsPHQ-907, 03/08/2017, 11/08/2016, Additional history wqavphEBDGX35, 10/06/2015, 04/15/2015, Additional history existsYEARLY PREVENTIVE VISIT/02/2020, 10/16/2019, 10/06/2015, Additional history existsCOVID-19 VACCINE ( season) /10/2023, 08/24/2023, 11/03/2022, Additional history existsINFLUENZA VACCINE (#1)/10/2023, 09/15/2023, 06/14/2023, Additional history existsMAMMO MLLJMPFHY59/05/2024, 4DIABETES SCREENING /04/2025, 10/16/2019, 11/23/2018, Additional history existsHPV TEST /12/2024, 11/03/2022, 05/30/2018PAP/12/2024, 11/03/2022, 05/30/2018, Additional history existsZOSTER VACCINE (1 of 2)2033 DTAP/TDAP/TD VACCINE (6 - Td or Tdap)/, 10/26/2018, 07/14/2016, Additional history existsMIGRAINE ACTION AYIONmtheduop61/02/2014, 04/08/2013, 07/19/2011DEPRESSION ACTION FDVGTbgncxnoo26/20/2017, 01/05/2017, 10/06/2015, Additional history existsPNEUMOCOCCAL VACCINE: PEDIATRICS (0 to 5 YEARS) AND AT-RISK PATIENTS (6 to 49 YEARS)Ivkispwgq07/17/2022, 12/18/2017, 12/29/2010HIV LIIQPLZEHLbwqyhbbc42/29/2023, 05/30/2018, 06/02/2017, Additional history existsHEPATITIS C USMCUXCLGRnzkwoooz40/29/2023, 09/28/2018, 06/02/2017, Additional history existsHPV VACCINE (No Doses Required)CompletedMENINGITIS VACCINEAged OutNo longer eligible based on patient's age to complete this topic Procedures Procedure NamePriorityDate/TimeAssociated DiagnosisCommentsCTA HEAD NECK W KMCUYQWBNBIQ81/09/2025 12:46 AM TRANSPORTATION EQUIPMENT PAINTER CT HEAD W/O YKJPMGAWCVCU50/09/2025 12:46 AM TRANSPORTATION EQUIPMENT PAINTER CBC WITH PLATELETS AND DIFFERENTIAL (LIMITED OCCURRENCES)STAT109/25/2024 10:48 PM TRANSPORTATION EQUIPMENT PAINTER EXTRA RED TOP MFMFYELU13/08/2025 10:48 PM TRANSPORTATION EQUIPMENT PAINTER EXTRA BLUE TOP HBWUCPIZ41/08/2025 10:48 PM TRANSPORTATION EQUIPMENT PAINTER CBC WITH PLATELETS AND ZZQSCODNEFAMTOEQ36/08/2025 10:48 PM TRANSPORTATION EQUIPMENT PAINTER EXTRA EWOFNZJG45/08/2025 10:48 PM TRANSPORTATION EQUIPMENT PAINTER BASIC METABOLIC PANEL (LIMITED OCCURRENCES)STAT109/25/2024 10:48 PM TRANSPORTATION EQUIPMENT PAINTER LIPID REFLEX TO DIRECT LDL UVHLVLhoeaec53/17/2020 8:49 AM TRANSPORTATION EQUIPMENT PAINTER Screening for cholesterol level HEPATITIS C IIRNPWPTWcnszif87/11/2019 7:50 AM TRANSPORTATION EQUIPMENT PAINTER Advanced maternal age in multigravida, second trimester PAP IMAGED THIN LAYER PEUSNQNvgmxgj33/12/2018 1:24 PM CDT Supervision of high-risk of elderly multigravida HIV ANTIGEN ANTIBODY LTIUBNeqbotj12/12/2018 10:57 AM CDT Supervision of high-risk of elderly multigravida HPV HIGH RISK TYPES DNA QNNYGGUFYoklixi70/12/2018 10:40 AM CDT Supervision of high-risk of elderly multigravida ASTHMA ACTION RTVSOguwvqg68/16/2017 10:52 AM TRANSPORTATION EQUIPMENT PAINTER Asthma, intermittent, uncomplicated from Last 3 Months or Most Recently Relevant to Health Maintenance Results * CTA Head Neck with Contrast (07/27/2025 12:46 AM TRANSPORTATION EQUIPMENT PAINTER)Anatomical Region LateralityModalityHead, SUBRAD CT NEURO, SUBRAD CT NEURO, UMP CT NEURO, RAD CT Computed TomographySpecimen (Source)Anatomical Location / LateralityCollection Method / VolumeCollection TimeReceived Time07/27/2025 12:46 AM TRANSPORTATION EQUIPMENT PAINTER Impressions 07/27/2025 1:13 AM TRANSPORTATION EQUIPMENT PAINTER IMPRESSION: HEAD CT: 1. ??Moderately limited by motion. No definite acute intracranial abnormality. HEAD CTA: 1. ??No high-grade stenosis, branch occlusion, or aneurysm. NECK CTA: 1. ??No high-grade stenosis or dissection. Narrative 07/27/2025 1:13 AM TRANSPORTATION EQUIPMENT PAINTER EXAM: CT HEAD W/O CONTRAST, CTA HEAD NECK W CONTRAST LOCATION: [facility] DATE: 07/27/2025 INDICATION: GERBER, sinus [...] CONTRAST, CTA HEAD NECK W CONTRAST LOCATION: [facility] DATE: 07/27/2025 INDICATION: GERBER, sinus [...] stenosis/occlusion, aneurysm, or high flowvascular malformation. Standard point lay ira of [place] anatomy. POSTERIOR CIRCULATION: No stenosis/occlusion, [...] high-grade stenosis or dissection. Authorizing ProviderResult TypeResult StatusAndevelin Reed [facility] ORDERABLES Final Result * CT Head w/o Contrast (07/27/2025 12:46 AM TRANSPORTATION EQUIPMENT PAINTER)Anatomical RegionLaterality ModalityHead, SUBRAD CT NEURO, SUBRAD CT NEURO, UMP CT NEURO, RAD CTComputed TomographySpecimen (Source)Anatomical Location / LateralityCollection Method / VolumeCollection TimeReceived Time07/27/2025 12:46 AM TRANSPORTATION EQUIPMENT PAINTER Impressions 07/27/2025 1:13 AM TRANSPORTATION EQUIPMENT PAINTER IMPRESSION: HEAD CT: 1. ??Moderately limited by motion. No definite acute intracranial abnormality. HEAD CTA: 1. ??No high-grade stenosis, branch occlusion, or aneurysm. NECK CTA: 1. ??No high-grade stenosis or dissection. Narrative 07/27/2025 1:13 AM TRANSPORTATION EQUIPMENT PAINTER EXAM: CT HEAD W/O CONTRAST, CTA HEAD NECK W CONTRAST LOCATION: [facility] DATE: 07/27/2025 INDICATION: GERBER, sinus [...] CONTRAST, CTA HEAD NECK W CONTRAST LOCATION: [facility] DATE: 07/27/2025 INDICATION: GERBER, sinus [...] stenosis/occlusion, aneurysm, or high flowvascular malformation. Standard point lay ira of [place] anatomy. POSTERIOR CIRCULATION: No stenosis/occlusion, [...] or dissection. Authorizing ProviderResult TypeResult StatusJeyson Reed MDOKLAHOMA CITY VETER[facility] [place] CT ORDERABLES Final Result * Extra Red Top Tube (07/26/2025 10:48 PM TRANSPORTATION EQUIPMENT PAINTER)ComponentValueRef RangeTest Method Analysis TimePerformed AtPathologist SignatureHold WiacngmmRSS75/09/2025 12:01 AM [facility] LABORATORYSpecimen (Source)Anatomical Location / LateralityCollection Method / VolumeCollection TimeReceived TimeBloodBLOOD SPECIMEN / Unknown Venipuncture / Oxupxki0307/26/2025 10:48 PM CST07/26/2025 10:54 PM TRANSPORTATION EQUIPMENT PAINTER Narrative Authorizing ProviderResult TypeResult StatusJeyson BAIRES - BLOOD ORDERABLESFinal ResultPerforming OrganizationAddressCity/State/ZIP CodePhone Number [facility] Lab [address] Lab (1st floor, no room number) [place] [address], [facility] * Extra Blue Top Tube (07/26/2025 10:48 PM TRANSPORTATION EQUIPMENT PAINTER)ComponentValueRef RangeTest MethodAnalysis TimePerformed AtPathologist SignatureHold WwfocfpgEID51/09/2025 12:01 AM [facility] LABORATORYSpecimen (Source)Anatomical Location / Laterality Collection Method / VolumeCollection TimeReceived TimeBloodBLOOD SPECIMEN / UnknownVenipuncture / Qypskaf5407/26/2025 10:48 PM CST07/26/2025 10:54 PM TRANSPORTATION EQUIPMENT PAINTER Narrative Authorizing ProviderResult TypeResult StatusJeyson Reed MDLAB - BLOOD ORDERABLESFinal ResultPerforming OrganizationAddressCity/State/ZIP CodePhone Number LABORATORY [facility] Acute Care Lab [address] Lab (1st floor, no room number) [place] [address] * CBC with platelets and differential (07/26/2025 10:48 PM TRANSPORTATION EQUIPMENT PAINTER)ComponentValueRef RangeTest MethodAnalysis TimePerformed AtPathologist SignatureWBC Count6.94 4.00 - 11.00 10e3/uL07/26/2025 10:56 PM [facility] LABORATORYRBC Count4.613.80 - 5.20 10e6/uL07/26/2025 10:56 PM [facility] XKCUTDEONOHmikqvjbdo01.411.7 - 15.7 g/dL 07/26/2025 10:56 PM [facility] EPWXDHGJLDLgbnptbdyg33.535.0 - 47.0 %07/26/2025 10:56 PM [facility] DBADFCOYUGCRL16.078.0 - 100.0 fL07/26/2025 10:56 PM [facility] ZVSVQHCHGUVSA43.226.5 - 33.0 pg07/26/2025 10:56 PM [facility] IYXRBDYKQVNOQS93.7 31.5 - 36.5 g/dL07/26/2025 10:56 PM [facility] RGGVVWXGTBCWL84.310.0 - 15.0 % 07/26/2025 10:56 PM [facility] LABORATORYPlatelet Fuddr330522 - 450 10e3/uL 07/26/2025 10:56 PM [facility]% Uruoqiypxxs72.4%07/26/2025 10:56 PM [facility]% Hckqmyviodi84.0%07/26/2025 10:56 PM [facility]% Monocytes 7.8%07/26/2025 10:56 PM [facility]% Eosinophils1.2%07/26/2025 10:56 PM [facility]% Basophils0.3%07/26/2025 10:56 PM [facility]% Immature Granulocytes0.3%07/26/2025 10:56 PM [facility] LABORATORYNRBCs per 100 WBC0.0<1.0 /2291007/26/2025 10:56 PM CST LABORATORYAbsolute Neutrophils4.201.60 - 8.30 10e3/uL07/26/2025 10:56 PM CST LABORATORYAbsolute Lymphocytes2.080.80 - 5.30 10e3/uL07/26/2025 10:56 PM CST LABORATORYAbsolute Monocytes0.540.00 - 1.30 10e3/uL07/26/2025 10:56 PM CST LABORATORYAbsolute Eosinophils0.080.00 - 0.70 10e3/uL07/26/2025 10:56 PM CST LABORATORYAbsolute Basophils<0.030.00 - 0.20 10e3/uL07/26/2025 10:56 PM [facility] LABORATORYAbsolute Immature Granulocytes<0.03 <=0.40 10e3/uL07/26/2025 10:56 PM [facility] LABORATORYAbsolute NRBCs<0.0310e3/uL 07/26/2025 10:56 PM [facility] LABORATORYSpecimen (Source)Anatomical Location / LateralityCollection Method / VolumeCollection TimeReceived TimeBloodBLOOD SPECIMEN / UnknownVenipuncture / Bixrvca1907/26/2025 10:48 PM CST07/26/2025 10:54 PM TRANSPORTATION EQUIPMENT PAINTER Narrative Authorizing ProviderResult TypeResult StatusAndevelin Reed MDLAB - BLOOD ORDERABLESFinal ResultPerforming OrganizationAddressCity/State/ZIP CodePhone Number [facility] Lab [address] Lab (1st floor, no room number) [place] [address], [facility] * Basic Metabolic Panel (Limited Occurrences) (07/26/2025 10:48 PM TRANSPORTATION EQUIPMENT PAINTER)Component ValueRef RangeTest MethodAnalysis TimePerformed AtPathologist SignatureSodium 983930 - 145 mmol/L109/25/2024 11:25 PM [facility] LABORATORYPotassium3.93.4 - 5.3 mmol/L109/25/2024 11:25 PM CST DIGPYAWTMGAsoclvbz26310 - 107 mmol/L109/25/2024 11:25 PM [facility] LABORATORYCarbon Dioxide (CO2)2422 - 29 mmol/L109/25/2024 11:25 PM [facility] LABORATORYAnion Dvx562 - 15 mmol/L109/25/2024 11:25 PM [facility] LABORATORYUrea Kgihjzgu07.96.0 - 20.0 mg/dL07/26/2025 11:25 PM [facility] LABORATORYCreatinine0.690.51 - 0.95 mg/dL07/26/2025 11:25 PM [facility] GFR Estimate>90>60 mL/min/1.03s13907/26/2025 11:25 PM [facility] LABORATORYComment: eGFR calculated using 2020 CKD-EPI equation.Calcium9.18.8 - 10.4 mg/dL 07/26/2025 11:25 PM [facility] ZJRTGHCJICObsjpbp1129 - 99 mg/dL07/26/2025 11:25 PM [facility] LABORATORYSpecimen (Source)Anatomical Location / LateralityCollection Method / VolumeCollection TimeReceived TimeBloodBLOOD SPECIMEN / Unknown Venipuncture / Tmbhwoq7307/26/2025 10:48 PM CST07/26/2025 10:54 PM TRANSPORTATION EQUIPMENT PAINTER Narrative Authorizing ProviderResult TypeResult StatusAndevelin Reed MDLAB - BLOOD ORDERABLESFinal ResultPerforming OrganizationAddressCity/State/ZIP CodePhone Number [facility] Lab [address] [facility] Lab (1st floor, no room number) [place] [address], [facility] * (ABNORMAL) Lipid panel reflex to direct LDL Fasting (11/04/2019 8:49 AM TRANSPORTATION EQUIPMENT PAINTER) ComponentValueRef RangeTest MethodAnalysis TimePerformed AtPathologist LlraxcfskOydjnusitiv784<200 mg/dL11/04/2019 2:48 PM [facility] PGXPDKEddrivsthslna771(H)<150 mg/dL11/04/2019 2:53 PM [facility] OXBOROComment: Borderline high: ??150-199 mg/dl High: ? 200-499 mg/dl Very high: >499 mg/dl Fasting specimen HDL Fwqpcckhcdc49(L)>49 mg/dL11/04/2019 3:06 PM [facility] [place]OLDL Cholesterol Gwdphqmvax43<100 mg/dL11/04/2019 3:06 PM [facility]ST[facility]XHOL[facility] HOSPITALOComment:Desirable: <100 mg/dlNon HDL Arxnnrfskez789 <130 mg/dL11/04/2019 3:06 PM [facility]ST[facility] OXHOLY CROSS HOSPITALOSpecimen (Source)Anatomical Location / LateralityCollection Method / VolumeCollection TimeReceived TimeBlood specimen (specimen)11/04/2019 8:49 AM CST11/04/2019 8:50 AM TRANSPORTATION EQUIPMENT PAINTER Narrative Authorizing ProviderResult TypeResult StatusLily Cruz DATA OPERATIONS DIRECTOR CNMLAB - BLOOD ORDERABLESFinal ResultPerforming OrganizationAddressCity/State/ZIP Code Phone Number [facility] [address] [place] [address] * Hepatitis C antibody (09/28/2018 7:50 AM TRANSPORTATION EQUIPMENT PAINTER)ComponentValueRef RangeTest MethodAnalysis TimePerformed AtPathologist SignatureHepatitis C Antibody NonreactiveNR^Gahvzfctthq23/11/2019 7:14 PM CSTUNJOHNS HOPKINS HOSPITALComment: Assay performance characteristics have not been established for newborns, infants, and children Specimen (Source)Anatomical Location / LateralityCollection Method / Volume Collection TimeReceived TimeBlood specimen (specimen)09/28/2018 7:50 AM TRANSPORTATION EQUIPMENT PAINTER 09/28/2018 8:48 AM TRANSPORTATION EQUIPMENT PAINTER Narrative Authorizing ProviderResult TypeResult StatusAndrei Avilez DATA OPERATIONS DIRECTOR CNMLAB - BLOOD ORDERABLESFinal ResultPerforming OrganizationAddressCity/State/ZIP Code Phone Number [facility] [address] [place] [address] * Pap imaged thin layer screen with HPV - recommended age 30 - 65 years (select HPV order below) (05/30/2018 1:24 PM CDT)ComponentValueRef RangeTest Method Analysis TimePerformed AtPathologist SignaturePAPNILCOPATHCopath Report Patient Name: SHU JONES MR#: [id number] Specimen #: [id number] Collected: 05/30/2018 Received: 05/31/2018 Reported: 06/02/2018 07:09 Ordering Phy(s): ALDO CORONA For improved result formatting, select 'View Enhanced Report Format' under Linked Documents section. SPECIMEN/STAIN PROCESS: Pap imaged thin layer prep screening (Surepath, FocalPoint with guided screening) ? Pap-Cyto x 1, HPV ordered x 1 SOURCE: Cervical, endocervical Pap imaged thin layer prep screening (Surepath, FocalPoint with guided screening) SPECIMEN ADEQUACY: Satisfactory for evaluation. -Transformation zone component present. CYTOLOGIC INTERPRETATION: Negative for intraepithelial lesion or malignancy Electronically signed out by: MARIA ESTHER Samayoa (ASCP) Processed and screened at [facility], [facility] CLINICAL HISTORY: LMP: 04/04/2018 , A previous normal pap Date of Last Pap: 10/06/2015, Papanicolaou Test Limitations: ??Cervical cytology is a screening test with limited sensitivity; regular screening is critical for cancer prevention; Pap tests are primarily effective for the diagnosis/prevention of squamous cell carcinoma, not adenocarcinomas or other cancers. TESTING LAB LOCATION: [address] ??[id number] COLLECTION SITE: Client: ??[facility] Location: [facility] (S)COPATHSpecimen (Source)Anatomical Location / Laterality Collection Method / VolumeCollection TimeReceived TimeCytologic material (specimen)05/30/2018 1:24 PM CDT05/31/2018 10:03 AM CDT Narrative Authorizing ProviderResult TypeResult StatusChristine Radha Corona APRN CNPLAB - OPTIME CLINICAL SPECIMENFinal ResultPerforming OrganizationAddressCity/State/ZIP CodePhone Number [facility] * HIV Antigen Antibody Combo (05/30/2018 10:57 AM CDT)ComponentValueRef Range Test MethodAnalysis TimePerformed AtPathologist SignatureHIV Antigen Antibody ComboNonreactiveNR^Wxzuaczjtzd52/13/2018 11:17 AM CDTUNJOHNS HOPKINS HOSPITALComment:HIV-1 p24 Ag & HIV-1/HIV-2 Ab Not DetectedSpecimen (Source)Anatomical Location / LateralityCollection Method / VolumeCollection TimeReceived TimeBlood specimen (specimen)05/30/2018 10:57 AM CDT05/30/2018 10:58 AM CDT Narrative Authorizing ProviderResult TypeResult StatusChristine Radha Corona APRN CNPLAB - BLOOD ORDERABLESFinal ResultPerforming OrganizationAddressCity/State/ZIP Code Phone Number [facility] [address] [place] [address] * HPV High Risk Types DNA Cervical (05/30/2018 10:40 AM CDT)ComponentValueRef RangeTest MethodAnalysis TimePerformed AtPathologist SignatureHPV Source FxavEobc29/12/2018 1:24 PM CDTFAIRST. V[facility]ENT [facility] EDINAHPV 16 DNA NegativeNEG^Jpratumx09/17/2018 3:55 PM CDTMT. [facility]ASHINGTON P[facility]ATRIC HOSPITALHPV 18 DNANegativeNEG^Qasaniuv01/17/2018 3:55 PM CDTMT. WASHINGTON P[facility]ATRIC HOSPITALOther HR HPVNegativeNEG^Yezpkmwj14/17/2018 3:55 PM CDTMT. WASHINGTON P[facility]ATRIC HOSPITALFinal DiagnosisThis patient's sample is negative for HPV DNA.06/04/2018 3:55 PM CDTMT. WASHINGTON PEDIATRIC HOSPITALComment: This test was developed and its performance characteristics determined by the [facility]. It has not been cleared or approved by the FDA. The laboratory is regulated under CLIA as qualified to perform high-complexity testing. This test is used for clinical purposes. It should not be regarded as investigational or for research. (Note) METHODOLOGY: ??The Evan stephen 4800 system uses automated extraction, simultaneous amplification of HPV (L1 region) and beta-globin, ?? followed by ??real time detection of fluorescent labeled HPV and beta globin using specific oligonucleotide probes . The test specifically identifies types HPV 16 DNA and HPV 18 DNA while concurrently detecting the rest of the high risk types (31, 33, 35, 39, 45, 51, 52, 56, 58, 59, 66 or 68). COMMENTS: ??This test is not intended for use as a screening device for women under age 30 with normal cervical cytology. ??Results should be correlated with cytologic and histologic findings. Close clinical followup is recommended. Specimen DescriptionCervical Cells05/30/2018 1:24 PM CDTUNJOHNS HOPKINS HOSPITALComment:[id number] (Source)Anatomical Location / LateralityCollection Method / VolumeCollection TimeReceived TimeCervical Cells CERVIX UTERI STRUCTURE / Wsdtfga5505/30/2018 10:40 AM CDT05/30/2018 1:30 PM CDT Narrative Authorizing ProviderResult TypeResult StatusChristine Radha Corona DATA OPERATIONS DIRECTOR CNPLAB - BLOOD ORDERABLESFinal ResultPerforming OrganizationAddressCity/State/ZIP Code Phone Number [facility] [address] [place] [address] [facility] [address] [place] [phone] from Last 3 Months or Most Recently Relevant to Health Maintenance Insurance Care Teams Team MemberRelationshipSpecialtyStart [address] [phone] PCP - Uqpygll96/8/25
--- OUTSIDE RECORDS SUMMARY | 2025-09-07 22:30 | XMS_ITS | Encounter Summary ---
Author Organization [facility] Address [address] [place] [address] Care Team Providers Care Police Lieutenant Patrol Name Role Phone Provider, External MD Primary Care Provider Unav ailable Encounter Details DateTypeDepartmentCare Team (Latest Contact Info)Iewpbipfjge54/19/2025 Notes/Orders Security Contact-Hyacinth Oliver, RDN, LD Social History Tobacco UseTypesPacks/DayYears UsedDateSmoking Tobacco: FormerCigarettesPassive Smoke Exposure: NeverSmokeless Tobacco: NeverAlcohol UseStandard Drinks/Week CommentsNo0 (1 standard drink = 0.6 oz pure alcohol)CommentsNoSex and Gender InformationValueDate RecordedSex Assigned at BirthNot on fileLegal Sex Fcfqqq3106/27/2012 6:57 AM CDTGender IdentityNot on fileSexual OrientationNot on 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 NicolletNot on fileNot on fileNot on filedocumented as of this encounter Last Filed Vital Signs Vital SignReadingTime TakenCommentsBlood Pressure--Pulse--Temperature-- Respiratory Rate--Oxygen Saturation--Inhaled Oxygen Concentration--Hlvdpw33.8 kg (198 lb)09/05/2025 10:34 AM CAZVeqkxe481.2 cm (5' 7)09/05/2025 10:34 AM CSTBody Mass Index31.01111/06/2024 10:34 AM CSTdocumented in this encounter Progress Notes * HYACINTH SAL - 09/05/2025 10:32 AM CST [place] GL[place]1 Session Information [place] GLP-1 Date of Visit: 08/12/25 Visit Number: Ongoing Education Weight: 198 lb (89.8 kg) Height: 5' 7 (170.2 cm) BMI: 31.01 AKER documented in this encounter Plan of Treatment Not on file documented as of this encounter Visit Diagnoses Not on filedocumented in this encounter Additional Health Concerns InfectionOnset DateLast IndicatedResolved MeteHBCC78/4documented as of this encounter Care Teams Team MemberRelationshipSpecialtyStart DateEnd Date Provider, External, PCP - General12/20/18documented as of this encounter
--- OUTSIDE RECORDS SUMMARY | 2025-09-07 22:30 | XMS_ITS | Patient Health Record ---
Author Organization [facility] Address [facility] [address] [place] [address] Care Team Providers Care Chiropractic Practice Manager Name Role Phone RUTHIE MONTANEZ Unavailable [phone] Reason For Referral No Information Medications Medication SIG (Take, Route, Frequency, Duration) Notes Start Date End Date Status predniSONE 20 MG Tablet Add'l Sig. Dispense 12. Oral 06/08/2015ctivemetroNIDAZOLE 0.75 % GelAdd'l Sig. Dispense 70. Vaginal 29 06/08/2015ctiveEpiPen 2-Harrison 0.3 mg/0.3 mL (1:1,000) Solution Auto-injectorAdd'l Sig. Dispense 2. Injection 29*Pick strength-form from indico for eRX* 06/08/2015ctiveLansoprazole 30 MG Capsule Delayed ReleaseAdd'l Sig. Dispense 30. Oral ctivediphenhydrAMINE HCl 25 MG CapsuleAdd'l Sig. Dispense 40. Oral ctiveRanitidine HCl 150 MG TabletAdd'l Sig. Dispense 10. 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 [address] [place] [address] [id number] Katelynn Jones Self - patient is the insured
--- OUTSIDE RECORDS SUMMARY | 2025-09-07 22:30 | XMS_ITS | Clinical Summary ---
[facility] Organization [facility] Address [address] [address] Care Team Providers Care Church Official Name Role Phone Provider, External MD Primary Care Provider Unav ailable Source Comments You are receiving this document as you are listed as the primary care provider,follow-up provider, or the patient has been referred to you for consultation.This is in compliance with the Medicare andMedicaid EHR Incentive Program,which states Providers who transition their patient to another setting of careor provider of care or refers their patient to another provider of care shouldprovide summary care record for each transition of care or referral. [employer] Allergies Active AllergyReactionsCriticalityNoted XhycIsdsivzcMkwurtnkjOwydltp71/20/2019 tingling EvxabktcaqnDwheodouskuUwkm43/19/7430QhzzidurzesdYuwdgmczkiiAapp52/19/2017 Hydrocodone-FuhjpopjushpuWeunqfyBsouat86/06/2020FamotidineAnaphylaxisHigh 05/04/20234771QlrubglabaHmeospeLvo43/16/2022Morphine And ZwlniiwXtzgsdz89/20/2019 Medications MedicationSigDispense QuantityRefillsLast FilledStart DateEnd DateStatus EPINEPHrine 1 MG/ML injection Inject subcutaneously once.Active levonorgestrel (MIRENA) 20 MCG/24HR IUD 20 mcg by Intrauterine route.Active ibuprofen (MOTRIN) 600 MG tablet Take by mouth.Active hydrOXYzine HCl (ATARAX) 10 MG tablet 04/26/2021ctive acetaminophen (TYLENOL) 500 MG tablet Take 1 Tablet (500 mg) by mouth.Active Docusate Sodium (DSS) 100 MG Take 1 Capsule (100 mg) by mouth.03/04/2021ctive ipratropium-albuterol (DUONEB) 0.5-2.5 (3) mg/3ml nebulizer solution Indications:Mild intermittent asthma with acute exacerbation (HRC)USE 3 ML VIA NEBULIZER EVERY 6 HOURS NEEDED FOR WHEEZING 90 mL 08/01/2021ctive clonazePAM (KLONOPIN) 0.5 MG tablet Take 1 Tablet (0.5 mg) by mouth daily as needed.05/26/2022ctive clotrimazole-betamethasone (LOTRISONE) 1-0.05 % cream Apply topically two times a day.09/21/2022ctive melatonin 3 MG tablet Take 1 Tablet (3 mg) by mouth at bedtime as needed.09/21/2022ctive pregabalin (LYRICA) 50 MG capsule Take 1 Capsule (50 mg) by mouth two times a day.09/22/2022ctive hydrOXYzine pamoate (VISTARIL) 25 MG capsule Take 1 Capsule (25 mg) by mouth two times daily as needed.Active Cholecalciferol (VITAMIN D) 50 MCG (2000 UT) CAPS Take 1 Capsule by mouth daily.11/17/2022ctive cycloSPORINE (RESTASIS) 0.05 % eye drop emulsion Place 1 Drop into both eyes every 12 hours.11/16/2022ctive valACYclovir (VALTREX) 500 MG tablet Take 1 Tablet (500 mg) by mouth as needed.11/03/2022ctive ALBUterol sulfate HFA 108 (90 Base) MCG/ACT inhaler Indications:Sinusitis, unspecified chronicity, unspecified locationInhale 1-2 Puffs every 4 hours as needed for Wheezing. 1 Each ctive clobetasol (TEMOVATE) 0.05 % cream Apply topically daily as needed.02/02/2023ctive fluticasone propionate (FLONASE) 50 MCG/ACT nasal solution Place 2 Sprays into both nostrils as needed.Active cyclobenzaprine (FLEXERIL) 5 MG tablet Take 1 Tablet (5 mg) by mouth three times a day as needed for Muscle Spasms. 15 Tablet 03/10/2024ctive DULoxetine (CYMBALTA) 30 MG capsule 1 Capsule (30 mg).04/16/2024ctive WEGOVY 1 MG/0.5ML pen injection Inject 0.5 mL (1 mg) subcutaneously once every week.Active fluconazole (DIFLUCAN) 150 MG tablet One tablet at the onset of symptoms and repeat in 2 days 1 Tablet 06/09/2024ctive Active Problems ProblemNoted DateDiagnosed DateHeart qyzjdthnbpjx70/22/2023Symptomatic PVCs 02/06/2023lass 1 obesity with body mass index (BMI) of 33.0 to 33.9 in adult 03/03/2022High dqdjntmnevdxl97/17/2020 Overview (02/21/2023): 150 in 2019, recheck at 2020 annual 150 in 2019, recheck at 2020 annual 150 in 2019, recheck at 2020 annual IUD (intrauterine device) in place11/04/2019 Overview (02/21/2023): IUD type: Mirena Lot # [id number] [facility]# [id number] Due to be removed on or before 11/04/2024 Formatting of this note might be different fromthe original. IUD type: Mirena Lot # [id number] [facility]# [id number] Due to be removed on or before 11/04/2024 Encounter for elective induction of labor01/02/2019NSVD (normal spontaneous vaginal delivery)01/02/2019Lactating jmtosz0301/02/2019Supervision of elderly multigravida in third /26/2018 Overview (02/21/2023): 01/02 Missed /28/2018 Overview (03/15/2018): 03-13-18. See phone notes Asthma, chkjefngntsp25/25/2018Genital jtsypk6312/04/2017 Overview (03/12/2018): Overview: Started Acyclovir on 09/22/16 at 38w1d. Patient states she has been taking 1 pill every other day up till this point. She states she has not had an outbreak for 8 years. Controlled substance agreement goxrns0311/16/2017 Overview (11/16/2017): Diagnosis: Panic attack Medication: clonazepam Controlled Substance Agreement reviewed and signed: yes Date agreement signed: 11/16/2017 Refill plan: 30 q 6 months Clinician: Miguelina Hansen PA-C Chronic fttcpxug27/19/2017Panic neutcmux53/19/2017Major depressive disorder, recurrent episode, gzsifgam55/20/2017GERD (gastroesophageal reflux disease) 12/28/20127917Xkkexji28/15/2013 Overview (03/12/2018): Overview: Formatting of this note may be [...] Psychiatry DIRE Total Score(s): Not indicated Last [facility] website verification: Yes 08/07/2017- Patient filled Rx 03/08/2017 for ACETAMINOP- CODEINE 120 from a non [facility] provider. https://[facility]/ Headache, variant uvqjkbju34/27/2011Chronic bylnxpcekzmb56/15/2010 Resolved Problems ProblemNoted DateDiagnosed DateResolved DateFamily history of diabetes mellitus in imtygp34Recurrent candidiasis of ubgwjh88 Encounters DateTypeDepartmentCare JkzlAqtkkzljtqk45/19/2025Notes/Orders Security Contact-Chiara Oliver, RDN, LD from Last 3 Months Immunizations ImmunizationAdministration DatesNext DueFlu Vac (3+ yrs)06/11/2013,10/02/2012, 07/09/2010,06/15/20097873R3T0-Jnfrirxzix59/30/2009HepB Adult (Engerix-B, 20+ yrs, 3 dose series)11/06/2013,10/04/2013HepB Ped/Adol (0-18 yrs)11/06/2013,10/04/2013 Influenza ([place] Only) (Flulaval Quad 0.5, 3+ yrs)06/11/2013,10/02/2012, 07/09/2010,06/15/2009Influenza (Flucelvax), Preserv Free QIV06/14/2023Influenza IIV4 (Quadrivalent) 0.5mL (36701)11/03/2022,06/12/2021,06/23/2020,08/15/2017, 08/15/2017,07/06/2015,06/05/2014,06/11/2013Influenza aIIV3 65+ Years (Fluad) 06/12/2021,06/23/2020,08/15/2017,07/06/2015,06/05/2014,06/11/2013MMR09/30/2016 Moderna Monovalent 12+07/25/2021,10/14/2020,09/16/2020PCV20 (Ftarnul07) 6652DWLI03 (Pneumovax)12/18/2017,12/29/2010Pfizer Bivalent 12+11/03/2022 Tdap03/16/2024,10/26/2018,07/14/2016,06/04/2013,06/15/2009 Family History Medical HistoryRelationNameCommentsCirrhosisBirth FatherSuicideBirth Father Diabetes, Type IIBirth MotherDiabetes, Type IISister 1KelleyRelationNameStatus CommentsBirth FatherDeceasedBirth MotherAliveSister 1KelleyAliveSister 2Alive Social History Tobacco UseTypesPacks/DayYears UsedDateSmoking Tobacco: FormerCigarettesPassive Smoke Exposure: NeverSmokeless Tobacco: Never Tobacco Cessation:Counseling Given: Not Answered Alcohol UseStandard Drinks/WeekCommentsNo0 (1 standard drink = 0.6 oz pure alcohol)CommentsNoSex and Gender InformationValueDate RecordedSex Assigned at BirthNot on fileLegal UoiOupkhv62/10/2012 6:57 AM CDTGender Identity Not on fileSexual OrientationNot on 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 Ray HartNot on fileNot on fileNot on file Last Filed Vital Signs Vital SignReadingTime TakenCommentsBlood Ydbxtrjo933/73/ 8:35 AM CDT Ginsf391906/09/2024 8:35 AM AUZTrmmxmzeynb89.4 ??C (97.5 ??F)06/09/2024 8:35 AM CDTRespiratory Ysuw494806/09/2024 8:35 AM CDTOxygen Xdzabutxny149%06/09/2024 8:35 AM CDTInhaled Oxygen Concentration--Flgyis77.8 kg (198 lb)09/05/2025 10:34 AM UYEYujnoy960.2 cm (5' 7)09/05/2025 10:34 AM CSTBody Mass Index31.01111/06/2024 10:34 AM DIRECTOR REGULATORY AGENCY Plan of Treatment Health MaintenanceDue DateLast DoneCommentsDiabetes Screening- (based on age and BMI)1983Hep C Screening (Preventive Services)1983Asthma ACT (score of 20 or higher)1987Adult Preventive Visit2001HepB Vaccine (2) , 11/06/2013, 10/04/2013, Additional history existsMammogram /4COVID-19 Vaccine ( season)/10/2023, 08/24/2023, 11/03/2022, Additional history existsInfluenza Vaccine (#1) 509/10/2023, 09/15/2023, 06/14/2023, Additional history existsCervical Cancer Neysoilnu64 (Completed), 12/04/2017, 12/04/2017 Zoster/Shingles Vaccine (1 of 2)3DTaP/Tdap/Td Vaccine (6 - Tdap) /, 10/26/2018, 07/14/2016, Additional history exists Pneumococcal ZwsafriGmntgnojp86/17/2022, 12/18/2017, 12/29/2010HIV Screening (Preventive Services)Writrqlkd82/29/2023HPV Vaccine (No Doses Required)Completed HepA VaccineAged OutNo longer eligible based on patient's age to complete this topicHib VaccineAged OutNo longer eligible based on patient's age to complete this topicIPV (Polio) VaccineAged OutNo longer eligible based on patient's age to complete this topicMCV4 VaccineAged OutNo longer eligible based on patient's age to complete this topicMeningococcal B VaccineAged OutNo longer eligible based on patient's age to complete this topic Procedures Procedure NamePriorityDate/TimeAssociated DiagnosisCommentsHIV 1/2 AG/AB 4TH GEN Utheera0303/16/2023 2:47 PM CDT SOB (shortness of breath) ANATOMICAL PATH LIQUID QXTHVLsjnxkn57/19/2018 2:05 PM CDT from Last 3 Months or Most Recently Relevant to Health Maintenance Results * HIV 1/2 Ag/Ab 4th Generation (03/16/2023 2:47 PM CDT)ComponentValueRef Range Test MethodAnalysis TimePerformed AtPathologist SignatureHIV 1/2 Antigen/Antibody (4th generation)Negative (Non Reactive)Negative (Non Reactive)03/16/2023 7:11 PM CDTHEASCENSION GENESYS HOSPITAL LABComment:HIV-1 p24 Antigen and HIV-1/HIV-2 Antibody not detectedSpecimen (Source)Anatomical Location / LateralityCollection Method / VolumeCollection TimeReceived Time BloodVenipuncture / Shnrvqe2103/16/2023 2:47 PM CDT03/16/2023 2:47 PM CDT Narrative Authorizing ProviderResult TypeResult StatusRacquel OWEN_1Final Result Performing OrganizationAddressCity/State/ZIP CodePhone Number [facility] [address] [phone] * Pap Smear (12/04/2017 2:05 PM CDT)Specimen (Source)Anatomical Location / LateralityCollection Method / VolumeCollection TimeReceived Time12/04/2017 2:05 PM CDT Narrative BEATRIZ SOFT - 12/13/2017 5:35 PM CDT FINAL GYNECOLOGICAL CYTOLOGY REPORT Pathology #: [id number] ?Date Obtained: 12/04/2017 ? Date Received: 12/05/2017 INTERPRETATION/RESULTS: Negative for Intraepithelial Lesion or Malignancy. Fungal organisms morphologically consistent with Radha species. SPECIMEN ADEQUACY: Satisfactory for Evaluation. ??No endocervical cells/transformation zone component present. Verified on 12/08/2017 ??by MINIE BACCAM, CT(ASCP) (electronic signature) CLINICAL NOTES: ?Abnormal bleeding: No, LMP: 11/22/17, Menstrual status: None Apply, ?Current form of therapy: IUD LIQUID BASED PAP SMEAR SPECIMEN TYPE: ?ROUTINE CERVICAL PAP TEST PLEASE NOTE: The pap smear is a screening test designed to aid in the detection of cervical cancer and its precursor lesions. It is not a diagnostic procedure and should not be used as the sole means of detecting cervical cancer. Both false-positive and false-negative reports may occur. Performed at [address] [address] Authorizing ProviderResult TypeResult StatusGarolan HOGUEB_1Final Result Performing OrganizationAddressCity/State/ZIP CodePhone Number ELIANE [address] [place] [phone] from Last 3 Months or Most Recently Relevant to Health Maintenance Additional Health Concerns InfectionOnset DateLast UajifuqviVJZY04/11/202402/07/2024 Insurance * Guarantor: [facility],CORPORATEAccount TypeRelation to PatientDate of PhoneBilling EvsfhpmQiygehyppEaflcspg47/02/1991 [id number] Attn: [place] [address] Care Teams Team MemberRelationshipSpecialtyStart DateEnd Date Provider, MD Scottie PCP - General12/20/18
--- OUTSIDE RECORDS SUMMARY | 2025-09-07 22:30 | XMS_ITS | Clinical Summary ---
Author Organization [facility] Address [facility] [place] [address] Care Team Providers Care Associate Store Leader Name Role Phone Fannie Albright NP Primary Care Provide r Allergies Active AllergyReactionsCriticalityNoted DateCommentsBuspironeItchingMedium 07/07/2019 tingling tingling VuwxzfssqwzCoolm07/19/2016 Pt reports tongue swelling Erythromycin*Rjpycrz7509/01/20156420QhjmqhsuvgSuylptmsuxxFxff91/18/2023 Hydrocodone-AcetaminophenItching,ZbntqCosldi54/06/2020MorphineItchingMedium 07/07/20196700YvmyikatkzgZfejsnwytcuTjow13/10/3072ZzqhctaxdiJvmqlucUvw07/16/2022 Medications MedicationSigDispense QuantityRefillsLast FilledStart DateEnd DateStatus EPINEPHrine (EPIPEN) 0.3 mg/0.3 mL (1:1,000) injection Indications:Allergic reaction, initial encounterInject 0.3 mg intramuscular one time if needed for Allergic Reaction for up to 1 dose. 1 Each ctive clonazePAM (KLONOPIN) 1 mg tablet Indications:AnxietyTake 1 tablet by mouth 2 times daily if needed for Anxiety. 10 tablet Active albuterol (PROVENTIL) 0.083 % neb solution Inhale 2.5 mg by mouth every 4 hours.02/16/2016Active ibuprofen (ADVIL; MOTRIN) 600 mg tablet 10/01/2016Active acetaminophen (TYLENOL EXTRA STRGTH) 500 mg tablet Take 1,000 mg by mouth every 6 hours.10/01/2016Active albuterol HFA 90 mcg/actuation inhaler Inhale 2 Puffs by mouth every 4 hours if needed.Active hydrOXYzine pamoate (VISTARIL) 25 mg capsule 10/19/2022ctive hydrOXYzine HCL (ATARAX) 10 mg tablet Take 10 mg by mouth 2 times daily if needed. FOR WRPOVWZ9707/20/2022ctive albuterol-ipratropium (DUONEB) (2.5-0.5 mg) in 3 mL NEBULIZATION solution Inhale 3 mL by mouth.08/01/2021ctive levonorgestrel (MIRENA) 20 mcg/24 hours (8 yrs) 52 mg intrauterine device (IUD) Inject 1 Device intrauterine.Active valACYclovir (VALTREX) 500 mg tablet 11/03/2022ctive clobetasol cream 0.05% (TEMOVATE) 0.05 % cream Apply topically to affected area(s) one time if needed.02/02/2023ctive docusate (COLACE) 50 mg capsule Take 50-100 mg by mouth.09/19/2023ctive lansoprazole (PREVACID) 15 mg capsule Take 15 mg by mouth.03/30/2023ctive fluticasone (50 mcg per actuation) nasal solution (FLONASE) 2 Sprays.Active DULoxetine (CYMBALTA) 30 mg Delayed-release capsule take 1 capsule by oral route every day*04/16/2024ctive cycloSPORINE (Restasis) 0.05 % ophthalmic emulsion Indications:Tear film insufficiency, bilateral,SPK (superficial punctate keratitis), bilateralPlace 1 Drop into both eyes every 12 hours. 30 Each 5Active hydrocortisone 2.5 % cream Indications:Vaginal lesion,History of herpes genitalisApply topically to affected area(s) two times daily. Apply a pea sized amount twice daily for up to 2 weeks to introitus/vaginal lesion 30 g 5Active ondansetron 4 mg disintegrating tablet Indications:NauseaPlace 1 Tablet (4 mg) on the tongue every 8 hours if needed for Nausea/Vomiting. 10 Tablet 02/27/2025tive ketoconazole 2% shampoo 2 % shampoo Apply 1 mL topically to affected area(s).5Active methocarbamoL 500 mg tablet TAKE 1 TABLET BY MOUTH UP TO ONE TIME DAILY NEEDED*5Active Percocet 5-325 mg 5 mg-325 mg tablet 5Active Zoryve 0.3 % foam 5Active fentaNYL (PF) 2 mcg/mL (SUBLIMAZE)-BUPivacaine (SENSORCAINE) 0.125% in NaCl 0.9% (PF) epidural Infuse/Inject into the epidural spine.Active ondansetron (ZOFRAN) 4 mg tablet take 1 - 2 tablet by oral route 2 times every day as needed*5Active tirzepatide (weight loss) (Zepbound) 10 mg/0.5 mL pen Indications:Class 1 obesityInject 10 mg subcutaneous once weekly. 2 mL 5Active Active Problems ProblemNoted DateDiagnosed DateCervical gqxcycnhuaykq30/23/2025Spinal stenosis, cervical ystemw7004/09/2025SCUS of cervix with negative high risk HPV03/10/2025 Overview (03/10/2025): 02/2025 ASCUS/HPV negative Plan: HPV based testing due 02/2028 Obstructive sleep apnea02/27/2025SVT (supraventricular tachycardia)11/28/2024 Acute cough07/02/2024Sore jbssim9207/02/2024Nonintractable ezasdhgo64/15/2024MRSA (methicillin resistant staph aureus) culture ehqycgmc89/16/2024Heart mkqcnkzicwik59/22/2023Symptomatic PVCs02/06/2023lass 1 obesity with body mass index (BMI) of 33.0 to 33.9 in adult03/03/2022High gaiijofcejjqn84/17/2020 Overview (12/05/2023): 150 in 2019, recheck at 2020 annual [...] annual IUD (intrauterine device) in place11/04/2019 Overview (12/05/2023): IUD type: Mirena Lot # [id number] [facility]# [id number] Due to be removed on or before 11/04/2024 IUD type: Mirena Lot # [id number] [facility]# [id number] Due to be removed on or before 11/04/2024 IUD type: Mirena Lot # [id number] [facility]# [id number] Due to be removed on or before 11/04/2024 IUD type: Mirena Lot # [id number] [facility]# [id number] Due to be removed on or before 11/04/2024 IUD type: Mirena Lot # [id number] [facility]# [id number] Due to be removed on or before 11/04/2024 Formatting of this note might be different fromthe original. IUD type: Mirena Lot # [id number] NDC# [id number] Due to be removed on or before 11/04/2024 Encounter for elective induction of labor01/02/2019Supervision of elderly multigravida in third iruntqqfs85/26/2018 Overview (12/05/2023): 01/02 4/17 Missed /28/2018 Overview (12/05/2023): 03-13-18. See phone notes Overview: 03-13-18. See phone notes Asthma, zhhysohzahej16/25/2018Controlled substance agreement jlcfmu1811/16/2017 Overview (12/05/2023): Overview: Diagnosis: Panic attack Medication: clonazepam Controlled [...] Clinician: Miguelina Hansen PA-C Recurrent candidiasis of iaxbwh4810/03/2017Chronic mkzpxidy25/19/2017Major depressive disorder, recurrent episode, lbzdjuwz66/20/2017Chronic tension-type /09/2015rthralgia of temporomandibular joint07/21/2015rticular disc disorder of temporomandibular joint07/21/2015PTSD (post-traumatic stress disorder)06/03/2014GERD (gastroesophageal reflux disease)12/28/2012nxiety 10/02/2012 Overview (12/05/2023): Patient is followed by Mili Cary PA-C [...] Psychiatry DIRE Total Score(s): Not indicated Last [employer] website verification: Yes 08/07/2017- Patient filled Rx 03/08/2017 for ACETAMINOP- CODEINE 120 from a non [facility] provider. [email or web address] Overview: Overview: Formatting of this note may [...] Psychiatry DIRE Total Score(s): Not indicated Last [employer] website verification: Yes 08/07/2017- Patient filled Rx 03/08/2017 for ACETAMINOP- CODEINE 120 from a non [facility] provider. [email or web address] Overview: Formatting of this note may be [...] Psychiatry DIRE Total Score(s): Not indicated Last [facility] website verification: Yes 08/07/2017- Patient filled Rx 03/08/2017 for ACETAMINOP- CODEINE 120 from a non [facility] provider. [email or web address] Patient is followed by Mili Cary PA-C [...] Psychiatry DIRE Total Score(s): Not indicated Last [facility] website verification: Yes 08/07/2017- Patient filled Rx 03/08/2017 for ACETAMINOP- CODEINE 120 from a non [facility] provider. [email or web address]/ Overview: Overview: Formatting of this note may [...] Psychiatry DIRE Total Score(s): Not indicated Last [facility] website verification: Yes 08/07/2017- Patient filled Rx 03/08/2017 for ACETAMINOP- CODEINE 120 from a non [facility] provider. [email or web address]/ Overview: Overview: Formatting of this note may [...] Psychiatry DIRE Total Score(s): Not indicated Last [facility] website verification: Yes 08/07/2017- Patient filled Rx 03/08/2017 for ACETAMINOP- CODEINE 120 from a non [facility] provider. [email or web address] Patient is followed by Mili Cary PA-C [...] Psychiatry DIRE Total Score(s): Not indicated Last [facility] website verification: Yes 08/07/2017- Patient filled Rx 03/08/2017 for ACETAMINOP- CODEINE 120 from a non [facility] provider. [email or web address]/ Overview: Overview: Formatting of this note may [...] Psychiatry DIRE Total Score(s): Not indicated Last [facility] website verification: Yes 08/07/2017- Patient filled Rx 03/08/2017 for ACETAMINOP- CODEINE 120 from a non [facility] provider. [email or web address]/ Overview: Formatting of this note may be [...] Psychiatry DIRE Total Score(s): Not indicated Last [facility] website verification: Yes 08/07/2017- Patient filled Rx 03/08/2017 for ACETAMINOP- CODEINE 120 from a non [facility] provider. [email or web address]://[email or web address]/ Headache, variant yldcynyg90/27/2959Dqjmfz50/20/2010Chronic constipation 07/02/2010Genital qjzihf7807/02/2010 Overview (12/05/2023): Overview: Started Acyclovir on 09/22/16 at 38w1d. Patient states she has been taking 1 pill every other day up till this point. She states she has not had an outbreak for 8 years. Overview: Overview: Started Acyclovir on 09/22/16 at [...] not had an outbreak for 8 years. Encounters DateTypeDepartPutnam County [facility] KflgZgcecoymgxy65/19/2025Telephone [facility] [address] [place] [address] Donald Ford OD Appointment (Vision changes )08/04/2025 2:00 PM CSTTelemedicine [facility] [address] [place] [address] Fannie Albright, JARETT Medication Crgrzmtofq20/12/5793Kmzdir29/13/2025Refill [facility] [address] [place] [address] Fannie Albright NP Refill Request (Zepbound)from Last 3 Months Immunizations ImmunizationAdministration DatesNext DueHepatitis B (Adult)11/06/2013,11/06/2013 ,10/04/2013,10/04/2013Hepatitis B (Peds)11/06/2013,10/04/2013INFLUENZA, IIV3 PF (AGE >= 6 MO)05/20/2024Influenza A (H1N1), Mbgjlwkxaqa80/30/2009Influenza Virus, Pkvbhkxrqur89/16/2023,06/12/2021,06/12/2021,06/23/2020,06/23/2020,08/15/2017, 08/15/2017,07/06/2015,07/06/2015,06/05/2014,06/05/2014,06/11/2013,06/11/2013, 06/11/2013,10/02/2012,07/09/2010,06/15/2009Influenza, IIV3 (Age >=3 years) 10/02/2012,07/09/2010,06/15/2009Influenza, ZZK288,11/03/2022,06/12/2021, 06/23/2020,08/15/2017,07/06/2015,06/05/2014,06/11/2013Influenza,CCIIV4 PRESERV FREE06/14/2023MMR09/30/2016Pneumococcal Conj 20-valent (Prevnar 20)02/01/2022 Pneumococcal Poly,23-Valent (Pneumovax)12/18/2017,12/29/20105778Yvynwjns47/15/2024, 03/25/2024,03/21/2024,03/18/2024Tdap03/16/2024,10/26/2018,07/14/2016,06/04/2013, 06/15/2009Tuberculin Skin Test, Klqiweokzbz05/19/2014 Family History RelationNameStatusCommentsFatherDeceasedMotherAlive Social History Tobacco UseTypesPacks/DayYears UsedDateSmoking Tobacco: CsuzvkHsclxyspbs2Nkqk: 03/11/2018Passive Smoke Exposure: PastSmokeless Tobacco: Current Tobacco Cessation:Ready to Q uit: Not Asked; Counseling Given: Not Answered Alcohol UseStandard Drinks/WeekCommentsNo0 (1 standard drink = 0.6 oz pure alcohol)PHQ-2AnswerDate RecordedPHQ-2 TOTAL NIVLF386Social Connections AnswerDate RecordedDo you often feel lonely or isolated from those around you?0 11/28/2024Financial Resource StrainAnswerDate RecordedDifficulty of Paying Living Tzbxhtab084/13/2025Difficulty of Paying Living ExpensesNot on file 11/28/2024Food InsecurityAnswerDate RecordedDo you worry your food will run out before you are able to buy more?Transportation NeedsAnswerDate RecordedDoes lack of transportation keep you from medical appointments?1 11/28/2024Does lack of transportation keep you from work, meetings or getting things that you need?Housing StabilityAnswerDate RecordedWhat is your housing situation today?Interpersonal SafetyAnswerDate RecordedAre you being hit, kicked, pushed or yelled at (see row info)?No08/16/2024 Interpersonal Safety Abuse 12 - 18Not on file08/16/2024Interpersonal Safety Ambulatory VulnerabilityNot on file08/16/2024UtilitiesAnswerDate RecordedDo you have trouble paying for utilities (for example, heat, electricity, water, phone)?CommentsNoSex and Gender InformationValueDate Recorded Sex Assigned at BirthNot on fileLegal FnlBbwuej68/14/2013 5:43 AM CSTGender IdentityNot on fileSexual OrientationNot on file Obstetrics History GravidaParaTermPretermABIABSABEctopicMultipleLivingLive Bolrlz42535956Chyw OutcomeGATotal LaborLabor/2nd/3olFqbbtoImiGpfsZyfcWNEHtvO7C2NchoAhkx08/23/2002 LUO01e9mKnqzv Comments:D&M1888TOP87/02/5848Tfee48x7kSTln-LmhhjGkntleJlrsn Delivery Location:Nzwiyk4206/03/20134429Dtjh44b0g4v 44m4h 25m/0h 12m/0h 07m3.74 kg (8 lb 3.8 oz)LAtzhznwoUxhvjj19EmtoijrVwghtasioox Roger Delgado MDDelivery Location:[facility]09/29/20160384Dqwp92j6o7s 15m4h 09m/0h 02m/0h 04m 2.88 kg (6 lb 5.6 oz)MVag-FpxotTdchLaxags05Nazznhk Ashu Benavides [employer] CNM Delivery Location:[facility]03/12/20189370QUC6r4b01/17/2019Term 27k9t9r 06m0h 02m/0h 04m3.35 kg (7 lb 6.2 oz)MVag-JzdlnZwtpVImhiso95 JAMAR,MALE-Dm Avilez [employer] CNMDelivery Location:[facility] ([address]) Last Filed Vital Signs Vital SignReadingTime TakenCommentsBlood Qjwunwdk529/7408 10:22 AM CDT Fmfru342004/26/2025 10:22 AM WKRNjcgxczdnir36.1 ??C (96.9 ??F)04/26/2025 10:22 AM CDTRespiratory Vhmt541204/26/2025 10:22 AM CDTOxygen Ialgatjhei692%04/26/2025 10:22 AM CDTInhaled Oxygen Concentration--Kumlom73.6 kg (204 lb 3.2 oz) 04/09/2025 8:44 AM XCLSwlsqk726.6 cm (5' 5.98)02/19/2025 10:08 AM CDTBody Mass Index32.9702/19/2025 10:08 AM CDT Plan of Treatment DateTypeDepartmentCare Team (Latest Contact Info)Ndpbisregdj68/06/2026 7:30 AM CSTAncillary Procedure [facility] [address] [place] [address] Health MaintenanceDue DateLast DoneCommentsHPV series for age 9-45 (1 - 3-dose SCDM series)2010Hepatitis B series for 19+ (3 of 3 - 19+ 3-dose series) , 11/06/2013, 11/06/2013, Additional history existsCOVID-19 vaccine series (2024- season)/10/2023, 08/24/2023, 11/03/2022, Additional history existsInfluenza Vaccine (#1)/10/2023, 09/15/2023, 06/14/2023, Additional history existsBMI (ht and wt on same day) for age 18+ 6002/19/2025, 09/29/2024Depression screening for age 12+02/19/2026 02/19/2025Pap test for age 21-650/12/2024, 02/19/2025, 12/04/2017 (Verified in Care Everywhere or Patient Record)Tetanus fnpasnn1503/16/2034 03/16/2024, 10/26/2018, 07/14/2016, Additional history existsPneumococcal series for age 6-29Sxmqxpuha59/17/2022, 12/18/2017, 12/29/2010Hepatitis C screening for age 18-78Otbhswlva73/16/2023 (Verified in Care Everywhere or Patient Record) Overridden with the intention of not completing the topicHIV for age 15-65 Lxhxjnyrp71/29/2023 (Verified in Care Everywhere or Patient Record)Overridden with the intention of not completing the topic Procedures Procedure NamePriorityDate/TimeAssociated DiagnosisCommentsHPV HIGH RISKRoutine 02/19/2025 10:50 AM CDT Screening for cervical cancer from Last 3 Months or Most Recently Relevant to Health Maintenance Results * HPV HIGH RISK (02/19/2025 10:50 AM CDT)ComponentValueRef RangeTest Method Analysis TimePerformed AtPathologist SignatureTYPE 16NegativeNegative 02/26/2025 2:22 PM CDALL[facility]ITALCENTRAL LABORATORYTYPE 18 SijrbklfUvpbpfvx99/11/2025 2:22 PM CDW[facility] LABORATORYOTHER HIGH RISK JEBLYHmxilduoCpfxaxgw02/11/2025 2:22 PM CDWINST[facility] LABORATORYSpecimen (Source)Anatomical Location / LateralityCollection Method / VolumeCollection TimeReceived TimeOther (Cervical)Non-Blood / Jxindsi9702/19/2025 10:50 AM CDT02/20/2025 11:47 AM CDT Narrative [facility] - 02/26/2025 2:22 PM CDT HPV types 16, 18, 31, 33, 35, 39, 45, 51, 52, 56, 58, 59, 66 and 68 DNA were undetectable or below the pre-set threshold. Methodology: Evan Vicky 4800 HPV Test Authorizing ProviderResult TypeResult StatusSherri Jaquelin Manueltbaldwin park hospital DOMICROBIOLOGY Final ResultPerforming OrganizationAddressCity/State/ZIP CodePhone Number [facility] [address] [address], from Last 3 Months or Most Recently Relevant to Health Maintenance Insurance [place] [id number] Care Teams Team MemberRelationshipSpecialtyStart DateEnd Date Fannie Albright NP [address] [place], [place] [phone] PCP - GeneralNurse Practitioner06/06/25
--- OUTSIDE RECORDS SUMMARY | 2025-09-07 22:30 | XMS_ITS | Encounter Summary ---
Author Organization [facility] Address [address] [facility] [place] [address] Care Team Providers Care Director Of Institutional Research Name Role Phone [facility], [facility] Primary Care Provider [phone] Encounter Details DateTypeDepartmentCare Team (Latest Contact Info)Jrjnlaxgilg32/08/2025Travel Social History Tobacco UseTypesPacks/DayYears UsedDateSmoking Tobacco: Some DaysCigarettes0.515 Smokeless Tobacco: NeverAlcohol UseStandard Drinks/WeekCommentsNo0 (1 standard drink = 0.6 oz pure alcohol)PHQ-2AnswerDate RecordedPHQ-2 Wbxas375 [place] Depression ScaleAnswerDate RecordedEdinburgh Depression Scale Rjkym874Last EPDS Self Harm ResultNot on file01/03/2019 Adolescent EducationAnswerDate RecordedGetting School Help NeededNot on file 3CommentsNoSex and Gender InformationValueDate RecordedSex Assigned at BirthNot on fileLegal ButVrlxhp08/04/2012 4:09 AM CSTGender Identity Not on fileSexual OrientationNot on fileOccupationIndustryJob Start DateJob 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 on fileNot on fileNot on filedocumented as of this encounter Plan of Treatment Not on file documented as of this encounter Visit Diagnoses Not on filedocumented in this encounter Additional Health Concerns AssessmentNoted TimePHQ-9 Depression Total Score: 9:26 AM DIRECTOR CORPORATE COMMUNICATIONS documented as of this encounter Care Teams Team MemberRelationshipSpecialtyStart DateEnd [facility], [address] [place] [address] PCP - Bgnfmzh29/8/25documented as of this encounter
[2025-09-07 22:47] VITALS: BP 164/93; PULSE 81; RESP 18; TEMP 36.7; O2SAT 99; BMI 30.9
[2025-09-07 23:46] VITALS: BP 124/86; PULSE 76; RESP 16; O2SAT 97
--- NOTE | 2025-09-08 00:16 | CRLHL7_ITS ---
For Patients: As a result of the Century Cures Act, medical imaging exams and procedure reports are released immediately into your electronic medical record. You may view this report before your referring provider. If you have questions, please contact your health care provider. INDICATION: Headache with right pupillary dilatation. TECHNIQUE: CT head without contrast. COMPARISON: None. FINDINGS: No acute intracranial hemorrhage. No CT evidence of acute territorial infarct. No hydrocephalus or midline shift. Normal cerebral parenchymal volume. Paranasal sinuses and mastoid air cells are well ventilated. No acute calvarial fracture. IMPRESSION: No acute intracranial abnormality. Please note that all CT scans at this facility use dose modulation, iterative reconstruction, and/or weight-based dosing when appropriate to reduce radiation dose to as low as reasonably achievable. Dictated by Jeyson Larkin MD @ 09/08/2025 12:46:09 AM (Electronically Signed)
[2025-09-08 00:52] LABS: Hematocrit* 37.3 % (33.0-51.0); Hemoglobin* 13.1 gm/dL (12.0-16.0); Immature Granulocytes Abs Auto 0.00 K/uL (0.00-0.30); Immature Granulocytes Pct Auto 0.0 %; Lymphocytes Absolute Auto 2.09 K/uL (0.90-2.90); Mean Corpuscular HGB Conc 35 gm/dL (32-36); Mean Corpuscular Hemoglobin 31 pg (26-34); Mean Corpuscular Volume 89 fL (80-100); RDW Coefficient of Variation % 12.0 % (11.5-15.5); Red Blood Count* 4.21 m/uL (4.00-5.20); White Blood Count* 6.01 K/uL (4.50-11.00)
[2025-09-08 00:53] LABS: Slide Review Reflex No
[2025-09-08] MEDS: diphenhydrAMINE 25 MG in 0.9 % SODIUM CHLORIDE 100 ml 100 ML 301.5 MG IVPB (01:08)
[2025-09-08] MEDS: PROCHLORPERAZINE 5 MG/ML VIAL IVP (01:08)
[2025-09-08] MEDS: dexAMETHasone 12 MG in 0.9 % SODIUM CHLORIDE 100 ml 100 ML 303.6 MG IVPB (01:09)
[2025-09-08 01:10] VITALS: BP 112/62; RESP 16; O2SAT 97
[2025-09-08 01:23] LABS: Chloride* 106 mmol/L (96-114); Potassium* 3.7 mmol/L (3.6-5.1); Sodium* 138 mmol/L (135-149)
--- OUTSIDE RECORDS SUMMARY | 2025-09-08 01:25 | XMS_ITS | Encounter Summary ---
Author Organization [place] Address [address] [facility] [place] [address] Care Team Providers Care Air Deodorizer Servicer Name Role Phone [facility], [facility] Primary Care Provider [phone] [phone] Encounter Details DateTypeDepartmentCare Team (Latest Contact Info)Hzgpyznksce58/08/2025Travel Social History Tobacco UseTypesPacks/DayYears UsedDateSmoking Tobacco: Some DaysCigarettes0.515 Smokeless Tobacco: NeverAlcohol UseStandard Drinks/WeekCommentsNo0 (1 standard drink = 0.6 oz pure alcohol)PHQ-2AnswerDate RecordedPHQ-2 Pdqhp945 [place] Depression ScaleAnswerDate RecordedEdinburgh Depression Scale Mckjq339Last EPDS Self Harm ResultNot on file01/03/2019 Adolescent EducationAnswerDate RecordedGetting School Help NeededNot on file 3CommentsNoSex and Gender InformationValueDate RecordedSex Assigned at BirthNot on fileLegal YcvKwxzoi23/04/2012 4:09 AM CSTGender Identity Not on fileSexual OrientationNot on fileOccupationIndustryJob Start DateJob 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 on fileNot on fileNot on filedocumented as of this encounter Plan of Treatment Not on file documented as of this encounter Visit Diagnoses Not on filedocumented in this encounter Additional Health Concerns AssessmentNoted TimePHQ-9 Depression Total Score: 9:26 AM ALUMINUM MOLDER documented as of this encounter Care Teams Team MemberRelationshipSpecialtyStart DateEnd [facility], [address] [place] [address] PCP - Xbhrfkb05/8/25documented as of this encounter
--- OUTSIDE RECORDS SUMMARY | 2025-09-08 01:25 | XMS_ITS | Clinical Summary ---
Author Organization [facility] Address [address] [place] [address] Care Team Providers Care Wire Products Inspector Name Role Phone Amari Hanley Pharm D Unavailable [phone] Navjot Segal Primary Care Provider [phone] Allergies Active AllergyReactionsCriticalityNoted DateCommentsBuspironeItchingMedium 07/07/2019 tingling QzhobpnzyfuDgtbqtlldcjIehb86/06/9291FbpuzlndcifqRsqllcajhbcAivq35/06/2016 FytztgcnszOhvetrizkro70/18/0301RahcfvcgLrkdaxtLaxiaf40/20/2019Penicillins ZxcjdnlkiojOuso41/10/2024Famotidine-Ca Carb-Mag Clzhkp6604/03/2023Topiramate TgmulotTmu39/16/2022Hydrocodone-BzwpqzthiybpiSgaidquSagdes54/06/2020 Medications MedicationSigDispense QuantityRefillsLast FilledStart DateEnd DateStatus acetaminophen [...] TO AFFECTED AREAS ON HAND TWICE DAILY BUOBHE4210/19/2021ctive clotrimazole-betamethasone 1%-0.05% (LOTRISONE) 1-0.05 % Top cream [...] hydrOXYzine pamoate (VISTARIL) 25 mg oral capsule Indications:Ihpqsmn0610/19/2022ctive cycloSPORINE 0.05 % ophthalmic (EYE) emulsion Instill [...] Application to skin twice a day. As gnpxyh6309/24/2024tive clobetasol (TEMOVATE) 0.05 % Top cream Apply 1 Application to skin twice a day. As azxeqm3409/24/2024tive DULoxetine 40 mg oral CpDR Take 1 capsule by mouth every 24 (twenty-four) hours.08/02/2024ctive clonazePAM (KLONOPIN) 1 mg oral tablet Take 1 tablet (1 mg) by mouth. Up to 1mg as needed for onuiwmz7709/06/2024ctive semaglutide (WEGOVY) 2.4 mg/0.75 mL SubQ pen [...] DateDiagnosed DateMRSA (methicillin resistant staph aureus) culture wwymcbyo10/16/2024Heart vlrjxgtuscvo09/22/2023Symptomatic PVCs02/06/2023lass 1 obesity with body mass index (BMI) of 33.0 to 33.9 in adult03/03/2022High mcdxvrhbsxqpi25/17/2020 Overview (03/31/2023): 150 in 2019, recheck at 2020 annual 150 in 2019, recheck at 2020 annual 150 in 2019, recheck at 2020 annual 150 in 2019, recheck at 2020 annual 150 in 2019, recheck at 2020 annual IUD (intrauterine device) in place11/04/2019 Overview (03/31/2023): IUD type: Mirena Lot # [id number] [facility]# [id number] Due to be removed on or before 11/04/2024 IUD type: Mirena Lot # [id number] [facility]# [id number] Due to be removed on or before 11/04/2024 IUD type: Mirena Lot # [id number] [facility]# [id number] Due to be removed on or before 11/04/2024 Missed mbodsabw79/28/2018 Overview (06/08/2020): Overview: 03-13-18. See phone notes Asthma, lycvlvkfwfsu04/25/2018Controlled substance agreement lvvsav6811/16/2017 Overview (01/25/2022): Diagnosis: Panic attack Medication: clonazepam [...] Clinician: Miguelina Hansen PA-C Recurrent candidiasis of awalxv7610/03/2017Chronic iarjikjn12/19/2017PTSD (post- traumatic stress disorder)06/03/2014GERD (gastroesophageal reflux disease) 12/28/20123322Twswdjc46/15/2013 Overview (01/25/2022): Patient is followed by Mili [...] Psychiatry DIRE Total Score(s): Not indicated Last [employer] website verification: Yes 08/07/2017- Patient filled Rx 03/08/2017 for ACETAMINOP- CODEINE 120 from a non [facility] provider. [email or web address] Overview: Overview: Formatting of this note may [...] Psychiatry DIRE Total Score(s): Not indicated Last [employer] website verification: Yes 08/07/2017- Patient filled Rx 03/08/2017 for ACETAMINOP- CODEINE 120 from a non [facility] provider. [email or web address] Overview: Overview: Formatting of this note may [...] Psychiatry DIRE Total Score(s): Not indicated Last [facility] website verification: Yes 08/07/2017- Patient filled Rx 03/08/2017 for ACETAMINOP- CODEINE 120 from a non [facility] provider. [email or web address] Patient is followed by Mili Cary PA-C [...] Psychiatry DIRE Total Score(s): Not indicated Last [facility] website verification: Yes 08/07/2017- Patient filled Rx 03/08/2017 for ACETAMINOP- CODEINE 120 from a non [facility] provider. [email or web address]/ Overview: Overview: Formatting of this note may [...] Psychiatry DIRE Total Score(s): Not indicated Last [facility] website verification: Yes 08/07/2017- Patient filled Rx 03/08/2017 for ACETAMINOP- CODEINE 120 from a non [facility] provider. https://[facility]Boot[facility] [employer] Overview: Formatting of this note may be [...] Psychiatry DIRE Total Score(s): Not indicated Last [facility] website verification: Yes 08/07/2017- Patient filled Rx 03/08/2017 for ACETAMINOP- CODEINE 120 from a non [facility] provider. https://[facility] centerBootstrap Digital [facility] [employer] Panic /10/2013Headache, variant ngrijeoo46/27/8343Xjtjsm35/20/2010 Chronic sjvdwbnevkgo17/15/2010Genital juvpkb8007/02/2010 Overview (01/25/2022): Overview: Overview: Started Acyclovir on [...] DateResolved DateEncounter for elective induction of laborLactating fnrybz01NSVD (normal spontaneous vaginal delivery)Supervision of elderly multigravida in third xalfkuzxg91 Overview (06/08/2020): 01/02 Major depressive disorder, recurrent episode, kgmepifg74 Immunizations ImmunizationAdministration DatesNext DueHep B Adult11/06/2013,10/04/2013 Influenza recombinant (FluBlok Quadrivalent PF)11/03/2022,06/12/2021,06/23/2020, 08/15/2017,07/06/2015,06/05/2014Influenza split virus (Fluzone Quadrivalent PF) 09/15/2023Influenza split virus cvlzifsayhsg65/24/2013,10/02/2012,07/09/2010, 06/15/2009MMR09/30/2016Pfizer 12+ Yrs Bivalent COVID Vaccine (riley cap) 3Pneumococcal OPG06292Pneumococcal Polysaccharide PPSV23 12/18/2017,12/29/2010SPIKEVAX (Moderna) 12+ Yrs Monovalent COVID Vaccine (credit compliance officer)07/25/2021,10/14/2020,09/16/2020Tdap10/26/2018,07/14/2016,06/04/2013, 06/15/2009 Family History Medical HistoryRelationCommentsAlcohol AbuseFatherHeart DiseaseMaternal [...] by your part ner or ex-partner?No02/01/2024HQ-2AnswerDate RecordedPHQ2 Wfhff596 CommentsNoSex and Gender InformationValueDate RecordedSex Assigned at MelxzLjpnyh19/21/2020 12:00 PM CDTLegal XoxZyjuov04/06/2016 6:12 PM CDTGender DcpthnwmXzorir35/21/2020 12:00 PM CDTSexual SviazpgyxzsCxmwkxnu43/21/2020 12:00 PM CDT Last Filed Vital Signs Vital SignReadingTime TakenCommentsBlood Rivaghcv304/7402/01/2024 9:01 PM CDT Fmvex253402/01/2024 9:01 PM SFXHztkavlxfzm40.4 ??C (97.5 ??F)02/01/2024 9:01 PM CDTRespiratory Ufqd835102/01/2024 9:01 PM CDTOxygen Ldnnkimlqk01%02/01/2024 9:01 PM CDTInhaled Oxygen Concentration--Mcpwui55.2 kg (190 lb)11/11/2024 9:09 AM PET TRAINER Qqwbln325.6 cm (5' 6)12/19/2023 9:42 AM CDTBody Mass Index30.67012/19/2023 9:42 AM CDT Plan of Treatment Health MaintenanceDue DateLast DoneCommentsHPV Vaccine (1 - 3-dose SCDM series) 2010nxiety Follow-Up (YEHUDA-7)epression Assessment (PHQ-2), 07/12/2023epression Follow-Up (PHQ-9)07/12/2024 07/12/2023Lipid Gefluitzv13/29/328335, 02/01/2022, 03/04/2021, Additional history existsCOVID-19 Vaccine ( season)2025 05/20/2024, 08/24/2023, 11/03/2022, Additional history existsInfluenza Vaccine (#1)509/10/2023, 09/15/2023, 06/14/2023, Additional history exists Mammogram Gaeszyvte85/09/133992/ap Smear/, 12/04/2017 (Previously completed)Adult Tetanus Nhzwcqk70/, 10/26/2018, 07/14/2016, Additional history existsRSV Vaccines (1 - 1-dose 75+ series) 2058Pneumococcal CgxzdbaTvjadumih74/17/2022, 12/18/2017, 12/29/2010 Hepatitis C NhqajuvdbUsitljndv88/29/2023, 11/03/2022, 02/01/2022Meningococcal B VaccineAged OutNo longer eligible based on patient's age to complete this topic Procedures Procedure NamePriorityDate/TimeAssociated DiagnosisCommentsMAMMO LORENA SCREENING YHOnhfhbm47/09/2024 11:31 AM PET TRAINER Visit for screening mammogram HCV ANTIBODY ([facility])Xcomokt4909/15/2023 8:05 AM PET TRAINER Screening for STDs (sexually transmitted diseases) LIPID PANEL ([facility])Bfxnmnf9409/15/2023 8:05 AM PET TRAINER Lipid screening BONDED STRUCTURES REPAIRER PAP/APTIMA HPV W/REFLEX TO HPV GENOTYPES ([facility])Usihalr9811/03/2022 8:51 AM PET TRAINER Pap smear for cervical cancer screening from Last 3 Months or Most Recently Relevant to Health Maintenance Results * MAMMO LORENA SCREENING BI (10/27/2023 11:31 AM PET TRAINER)Anatomical RegionLaterality ModalityBreastBilateralMammographySpecimen (Source)Anatomical Location / LateralityCollection Method / VolumeCollection TimeReceived Time Impressions 10/27/2023 12:58 PM PET TRAINER : NEGATIVE There is no mammographic evidence of malignancy. ?? RECOMMENDATION: ? - A screening mammogram in 1 year. BI-RADS: Overall: 1 - Negative The patient will be notified of the results. REPORT SIGNED BY Abhijeet Kinney MD Narrative 10/27/2023 12:58 PM PET TRAINER EXAM: MAMMO LORENA SCREENING BI REASON FOR [...] * HCV ANTIBODY ([facility]) (09/15/2023 8:05 AM PET TRAINER)ComponentValueRef RangeTest MethodAnalysis TimePerformed AtPathologist SignatureHepatitis C Virus Antibody ([facility])Non ReactiveNon Kdygiexa51/30/2023 11:08 AM CSTLABCORP OF [place] Comment: HCV antibody alone does not differentiate between previously resolved infection and active infection. Equivocal and Reactive HCV antibody results should be followed up with an HCV RNA test to support the diagnosis of active HCV infection. Specimen (Source)Anatomical Location / LateralityCollection Method / Volume Collection TimeReceived TimeBloodVenipuncture / Ilgwzst0509/15/2023 8:05 AM PET TRAINER 09/15/2023 8:05 AM PET TRAINER Narrative [facility] - 09/16/2023 11:08 AM PET TRAINER Performed at: 01 - [address] [place], [place] ??[id number] Carousel Attendant: Rex Amos MD, Phone: ??[phone] Authorizing ProviderResult TypeResult StatusBejay Lau MDLABCORP ORDERABLESFinal ResultPerforming OrganizationAddressCity/State/ZIP CodePhone Number [facility] [address] [place] [address] * (ABNORMAL) LIPID PANEL ([facility]) (09/15/2023 8:05 AM PET TRAINER)ComponentValueRef RangeTest MethodAnalysis TimePerformed AtPathologist SignatureCholesterol ([facility])665438 - 199 mg/dL09/16/2023 7:10 AM CSTLABCORP OF [place] Triglycerides ([facility])1370 - 149 mg/dL09/16/2023 7:10 AM CSTLABCOR[facility]HDL Cholesterol ([facility])37(L)>39 mg/dL09/16/2023 7:10 AM CSTLABCORP OF AMERICAVLDL Cholesterol [place] ([facility])245 - 40 mg/dL09/16/2023 7:10 AM PET TRAINER [facility] Cholesterol Calc - NIH ([facility])940 - 99 mg/dL09/16/2023 7:10 AM CSTLABCORP [facility]ITALSpecimen (Source)Anatomical Location / Laterality Collection Method / VolumeCollection TimeReceived TimeBloodVenipuncture / Clemguc6209/15/2023 8:05 AM CST09/15/2023 8:05 AM PET TRAINER Narrative [facility] [place] - 09/16/2023 7:10 AM PET TRAINER Performed at: 01 - [address] ??[id number] Carousel Attendant: Rex Amos MD, Phone: ??[phone] Authorizing ProviderResult TypeResult StatusBetlehem Viri Lau MDL[facility] ORDERABLESFinal ResultPerforming OrganizationAddressCity/State/ZIP CodePhone Number [facility] [address] [place] [address] * BONDED STRUCTURES REPAIRER PAP/APTIMA HPV W/REFLEX TO HPV GENOTYPES ([facility]) (11/03/2022 8:51 AM PET TRAINER)ComponentValueRef RangeTest MethodAnalysis TimePerformed AtPathologist SignatureDiagnosis: ([facility])Fynpbsx1711/06/2022 12:05 AM CSTLABC[facility]P [facility] [place] Comment:NEGATIVE FOR INTRAEPITHELIAL LESION OR MALIGNANCY.Specimen Adequacy: ([facility])Uidzqac5011/06/2022 12:05 AM CSTLABCOCHILDR[facility] AT VCUComment:Satisfactory for evaluation. Endocervical and/or squamous metaplasticcells (endocervical component)are present.Clinician Provided ICD10: ([facility])Kswwjwl1211/06/2022 12:05 AM CSTLABSENTARA CAREPLEX HOSPITALComment:Z12.4Performed by:Pkesqpk3011/06/2022 12:05 AM [facility]:Iza Thao, Chicken Fancier (ASCP)Cyto Comments ([facility]).11/06/2022 12:05 AM CSTLABCOGRANT REGIONAL HEALTH CENTERote: ([facility])Xphiamd5511/06/2022 12:05 AM [facility] Comment: The Pap smear is a screening test designed to aid in the detection of premalignant and malignant conditions of the uterine cervix. ??It is not a diagnostic procedure and should not be used as the sole means of detecting cervical cancer. ??Both false-positive and false-negative reports do occur. HPV Aptima ([facility])DdhmoikbZrwipeub07/19/2023 12:05 AM [facility] Comment:This nucleic acid amplification test detects fourteen high-riskHPV types (16,18,31,33,35,39,45,51,52,56,58,59,66,68) withoutdifferentiation.HPV Genotype Reflex ([facility])Ouiycui4211/06/2022 12:05 AM [facility] SYSTEMComment:Criteria not met, HPV Genotype not performed.Test Methodology ([facility])Bomjexl2811/06/2022 12:05 AM [facility] SYSTEMComment:This liquid based ThinPrep(R) pap test was screened with theuse of an image guided system.Specimen (Source)Anatomical Location / LateralityCollection Method / VolumeCollection TimeReceived TimePap 11/03/2022 8:51 AM CST11/03/2022 8:51 AM PET TRAINER Narrative [facility]COCH[facility] - 11/06/2022 12:05 AM PET TRAINER Specimen Comment: [id number] Specimen Comment: Source.............Cervix Specimen Comment: LMP / Prev Treat...None Specimen Comment: No. of containers..01 ThinPrep Vial Performed at: ??01 - [facility] [place] [address], [place], [place] ??[id number] Carousel Attendant: Prem Simons MD, Phone: ??[phone] Performed at: ??02 - [facility] [place] [address], [place], [place] ??[id number] Carousel Attendant: Prem Simons MD, Phone: ??[phone] Authorizing ProviderResult TypeResult StatusKiisabelle PALMA-[facility] ORDERABLESFinal ResultPerforming OrganizationAddressCity/State/ZIP CodePhone Number [facility] [place] [address] [place] [address] from Last 3 Months or Most Recently Relevant to Health Maintenance Insurance * Guarantor: Katelynn Jones TypeRelation to PatientDate of BirthPhone Billing AddressPersonal/TfbvatQmks20/14/[address] [place] [address] * Guarantor: Katelynn Jones TypeRelation to PatientDate of BirthPhone Billing AddressPersonal/ZlywkcZkph49/14/[address] [place] [address] [facility] Address: [address] [place] [address] * Guarantor: Katelynn Jones TypeRelation to PatientDate of BirthPhone Billing WhclcjpDEHVUUvmg[address] [place], [place] [address] * Guarantor: Katelynn Jones TypeRelation to PatientDate of BirthPhone Billing AddressPersonal/GdxukkYlgj[address] [place] [address] * Guarantor: Katelynn Jones TypeRelation to PatientDate of BirthPhone Billing AddressPersonal/UwqpjbQoih[address] [place] [address] * Guarantor: Katelynn Jones TypeRelation to PatientDate of BirthPhone Billing AddressPersonal/TkkbbwOyqy[address] [place] [address] [place] [address] [place] [address] [place] [address] [place] [address] Care Teams Team MemberRelationshipSpecialtyStart DateEnd Navjot Segal [address] [place] [address] PCP - GeneralFamily Medicine01/14/25 Amari Hanley, Pharm D [address] [place] [address] 02/06/23
--- OUTSIDE RECORDS SUMMARY | 2025-09-08 01:25 | XMS_ITS | Patient Health Record ---
Author Organization [facility] Address [address] [place] [address] Care Team Providers Care Radiologic Therapist Name Role Phone Miriam Arteaga Primary Care [...] W/U Status Risk Notes Problem Anal fissure (39320721) Anal fissure (K60 .2) Activeconfirmed Plan Of Treatment No Information Insurance Providers Payer Name Payer Address Payer Phone Subscriber Number Group Number Insured Name Patient Relationship to Insured Coverage Start Date Coverage End Date [employer] Claims Dept [address] [address] [place] [id number] Katelynn Jones Self - patient is the insured 1 [facility] PartnersPO [address] [address] [place] [id number] Heriberto Joneself - patient is the [id number] 2019 Medical (General) History Medical History History ICD Code major depressive disorder anxietyPTSDchronic constipationherpesGERDpanic disorderSurgical History Surgery Date(Month/Year) salpingectomy D&Ctonsil and adenoidectomy
--- OUTSIDE RECORDS SUMMARY | 2025-09-08 01:25 | XMS_ITS | Clinical Summary ---
Author Organization [place] Address [address] [place] [address] Care Team Providers Care Rest Room Attendant Name Role Phone Clinic, [facility] Primary Care Provider [phone] Allergies Active AllergyReactionsCriticalityNoted DateCommentsClindamycinAnaphylaxisHigh 06/09/2015 Patient said that her throat and tongue started to swell up. Went the Urgency Room. AusgyhtuwwzvScwapfizlicYjcc50/23/2016 Throat swelling Medications MedicationSigDispense QuantityRefillsLast FilledStart DateEnd DateStatus albuterol (PROVENTIL HFA) 108 (90 BASE) MCG/ACT inhaler Indications:Chest tightness,Intermittent asthma with allergic rhinitisInhale 2 puffs into the lungs every 6 hours 1 Inhaler Active EPINEPHrine 0.3 MG/0.3ML injection 2-pack Inject 0.3 mg into the xgbhkl1806/08/2015ctive acetaminophen (TYLENOL) 500 MG tablet Take 500 [...] by Intrauterine route once [facility]- 18817-951-33 [id number] EXP-2Active Active Problems Patient Care Coordination No te Formatting of this note migh t be different from the original. Benzodiazepine use with Controlled Substance Agreement/Plan -To find plan for this patient search for details found in PROBLEM LIST. Look for ANXIETY diagnosis, open OVERVIEW. ProblemNoted DateDiagnosed DateIUD (intrauterine device) in place11/04/2019 Overview (11/04/2019): IUD type: Mirena Lot # [id number] [facility]# 71052-883-53 Due to be removed on or before 11/04/2024 High xxtnoxopaibsk04/17/2020 Overview (11/04/2019): 150 in 2019, recheck at 2020 annual Encounter for elective induction of labor01/02/2019NSVD (normal spontaneous vaginal delivery)01/02/2019Lactating gvrgeg7401/02/2019Supervision of elderly multigravida in third pykcojlwt94/26/2018 Overview (01/04/2019): 01/02 Controlled substance agreement falwmc8211/16/2017 Overview (10/12/2018): Overview: Diagnosis: Panic attack Medication: clonazepam Controlled Substance Agreement reviewed and signed: yes Date agreement signed: 11/16/2017 Refill plan: 30 q 6 months Clinician: Miguelina Hansen PA-C Recurrent candidiasis of obpfgu3110/03/2017Panic cfswityu67/19/2017Major depressive disorder, recurrent episode, /20/2017GERD (gastroesophageal reflux disease)12/28/20129799Zhcwrde74/15/2013 Overview (10/12/2018): Patient is followed by [facility] [...] Psychiatry DIRE Total Score(s): Not indicated Last [facility] website verification: Yes 08/07/2017- Patient filled Rx 03/08/2017 for ACETAMINOP- CODEINE 120 from a non [facility] provider. [email or web address] Overview: Overview: Formatting of this note may [...] Psychiatry DIRE Total Score(s): Not indicated Last [facility] website verification: Yes 08/07/2017- Patient filled Rx 03/08/2017 for ACETAMINOP- CODEINE 120 from a non [facility] provider. [email or web address] Headache, variant kivvzpbw08/27/2011Genital pdfflm1907/02/2010 Overview (12/08/2018): Chronic wksputbpbtjq27/15/2010sthma, intermittent Resolved Problems ProblemNoted DateDiagnosed DateResolved DatePositive GBS test12/17/2018 01/04/2019Herpes zoster with lhfefhkyobao94 Overview (11/22/2018): Dx 11/21/18. On Valtrex. Consulted with [facility]. Keep covered with Tegaderm until crusted over. No other follow up is needed. Abnormal ultrasound; AC Overview (11/15/2018): 11/15/18: Abdominal circumference 9%ile. M recommended follow up US at 35 weeks. Indication for care in labor or yaonwfbn06Pyelectasis of fetus on knxdngajua31 Overview (11/15/2018): Rt kidney 4mm Lt kidney 3mm 11/15/18: Resolved at [facility] Presence of intrauterine contraceptive ubtaef39Encounter for IUD jnjdihwsx43 Overview (11/08/2016): LOT [id number], placed 11/08/16 Indication for care in labor and delivery, wslzxtuogc14NSVD (normal spontaneous vaginal delivery)Indication for care in labor or xveptgng70Tobacco use jklprasz60 Overview (06/14/2016): Was smoking 1 ppd, now down to 2 cig/day sometimes none. Supervision of other normal , kpwldejdir70 Overview (07/14/2016): FOB: Sacha NELIA: 10/05/16 HR FOB: Sacha Estimated Date of Delivery: Oct 05, 2016 BT: A+ Genetic: WNL Sex: Boy Placenta: Posterior Tdap: 07/14/16 Flu: Declined GBS: Problems F/U next visit GCT/OBHGB= Passed 128/11.9 : class: Childbirth ed: Peds: Circumcision: control: PP help: Hospital registration: Done Hospital tour: Plan: Rubella non-immune status, ommucgpord57Tobacco use disorder 12/10/Coital cwmglstx52IUD (intrauterine device) in placeNexplanon in placebdominal pain in bhupppbst42ctive laborVaginal delivery Encounter for supervision of normal in sgtzlmozguqb35 Overview (07/20/2015): Diagnosis updated by automated process. Provider to review and confirm. Decreased bkghgdcq69bnormal glucose tolerance test Preterm laborLabor and delivery indication for care or equvwfigzsdi32bdominal cramping Placenta isvqix77Nausea/vomiting in ycdknplsg88nkle painCARDIOVASCULAR SCREENING; LDL GOAL LESS THAN 82242IUD (intrauterine device) in placeMild major xuchshxlee99Tobacco abuseSupervision of normal first rjrromcul48/17/2009 07/13/2009 Encounters DateTypeDepartmentCare AsdeHrowqaupeym69/08/2025 10:29 PM DATABASE ADMINISTRATION ASSOCIATE - 07/27/2025 12:32 AM [facility]STEmerSt[facility] [address] [place] [phone] Jeyson Reed MD Migraine without status migrainosus, not intractable, unspecified migraine type (Primary Dx) Discharge Disposition: Left Against Medical Jwppvz8107/26/2025Travelfrom Last 3 Months Immunizations ImmunizationAdministration DatesNext TpvLldC9111/06/2013,10/04/2013Influenza (H1N1)09/16/2009Influenza (IIV3) PF06/11/2013,10/02/2012,07/09/2010,06/15/2009 Influenza Vaccine >6 months,quad, PF08/15/2017,07/06/2015,06/05/2014MMR (MMRII) 09/30/2016Mantoux Tuberculin Skin Test11/06/2013Pneumococcal 23 wnorox06/10/2017 ,12/29/2010TDAP Vaccine (Adacel)10/26/2018,07/14/2016,06/04/2013,06/15/2009 Family History Medical HistoryRelationCommentsThyroid [...] drink = 0.6 oz pure alcohol)PHQ-2AnswerDate RecordedPHQ-2 Rqrwn986Edinburgh Depression ScaleAnswerDate RecordedEdinburgh Depression Scale Total1 01/03/2019Last EPDS Self Harm ResultNot on file01/03/2019Adolescent Education AnswerDate RecordedGetting School Help NeededNot on file3 CommentsNoSex and Gender InformationValueDate RecordedSex Assigned at BirthNot on fileLegal NkwZzxxsi30/04/2012 4:09 AM CSTGender IdentityNot on fileSexual OrientationNot on fileOccupationIndustryJob Start DateJob End Date nurse 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/admin specialistNot on fileNot on fileNot on file Last Filed Vital Signs Vital SignReadingTime TakenCommentsBlood Eyobjtxa275/7511 10:23 PM DATABASE ADMINISTRATION ASSOCIATE Simcw3505 10:23 PM HLTIdakcozalke72.5 ??C (97.7 ??F)07/26/2025 10:23 PM CSTRespiratory Hzzf365809/25/2024 10:23 PM CSTOxygen Eysdfdkoeq47%07/26/2025 10:23 PM CSTInhaled Oxygen Concentration--Wrbnaa96.2 kg (203 lb 4.2 oz)07/26/2025 10:23 PM GBLBtohsf256.2 cm (5' 7)07/26/2025 10:23 PM CSTBody Mass Index31.84 07/26/2025 10:23 PM DATABASE ADMINISTRATION ASSOCIATE Plan of Treatment Health MaintenanceDue DateLast DoneCommentsADVANCE CARE ABYJTRFG1983ANNUAL REVIEW OF HM XOINIX1507/01/1983HEPATITIS B VACCINE (3 of 3 - 19+ 3-dose series) , 11/06/2013, 10/04/2013, Additional history existsASTHMA CONTROL TEST, 01/25/2016, 12/11/2015, Additional history existsASTHMA ACTION PLAN, 11/03/2016, 10/06/2015, Additional history existsPHQ-907, 03/08/2017, 11/08/2016, Additional history tsivlgRGDOZ92, 10/06/2015, 04/15/2015, Additional history existsYEARLY PREVENTIVE VISIT/02/2020, 10/16/2019, 10/06/2015, Additional history existsCOVID-19 VACCINE ( season) /10/2023, 08/24/2023, 11/03/2022, Additional history existsINFLUENZA VACCINE (#1)/10/2023, 09/15/2023, 06/14/2023, Additional history existsMAMMO IBNNSDSVK37/05/2024, 4DIABETES SCREENING /04/2025, 10/16/2019, 11/23/2018, Additional history existsHPV TEST /12/2024, 11/03/2022, 05/30/2018PAP/12/2024, 11/03/2022, 05/30/2018, Additional history existsZOSTER VACCINE (1 of 2)2033 DTAP/TDAP/TD VACCINE (6 - Td or Tdap)/, 10/26/2018, 07/14/2016, Additional history existsMIGRAINE ACTION ULSIPiliztjce74/02/2014, 04/08/2013, 07/19/2011DEPRESSION ACTION AOPWSvogbaewq11/20/2017, 01/05/2017, 10/06/2015, Additional history existsPNEUMOCOCCAL VACCINE: PEDIATRICS (0 to 5 YEARS) AND AT-RISK PATIENTS (6 to 49 YEARS)Rvziwfjjg46/17/2022, 12/18/2017, 12/29/2010HIV GWMFNMHZOCydtddcho68/29/2023, 05/30/2018, 06/02/2017, Additional history existsHEPATITIS C LHIVWJZYGXhhwsumhk65/29/2023, 09/28/2018, 06/02/2017, Additional history existsHPV VACCINE (No Doses Required)CompletedMENINGITIS VACCINEAged OutNo longer eligible based on patient's age to complete this topic Procedures Procedure NamePriorityDate/TimeAssociated DiagnosisCommentsCTA HEAD NECK W LUXYCFABEOFL25/09/2025 12:46 AM DATABASE ADMINISTRATION ASSOCIATE CT HEAD W/O URWLIQAWJTPU92/09/2025 12:46 AM DATABASE ADMINISTRATION ASSOCIATE CBC WITH PLATELETS AND DIFFERENTIAL (LIMITED OCCURRENCES)STAT109/25/2024 10:48 PM DATABASE ADMINISTRATION ASSOCIATE EXTRA RED TOP KDNNDGOB87/08/2025 10:48 PM DATABASE ADMINISTRATION ASSOCIATE EXTRA BLUE TOP JJZVKWGG54/08/2025 10:48 PM DATABASE ADMINISTRATION ASSOCIATE CBC WITH PLATELETS AND PVVXXWDULCRPLDMV95/08/2025 10:48 PM DATABASE ADMINISTRATION ASSOCIATE EXTRA DGUFXRKW71/08/2025 10:48 PM DATABASE ADMINISTRATION ASSOCIATE BASIC METABOLIC PANEL (LIMITED OCCURRENCES)STAT109/25/2024 10:48 PM DATABASE ADMINISTRATION ASSOCIATE LIPID REFLEX TO DIRECT LDL RONTWYpwkttc00/17/2020 8:49 AM DATABASE ADMINISTRATION ASSOCIATE Screening for cholesterol level HEPATITIS C APMXWQQEMxskhxo77/11/2019 7:50 AM DATABASE ADMINISTRATION ASSOCIATE Advanced maternal age in multigravida, second trimester PAP IMAGED THIN LAYER JURQLVVkiqnxx73/12/2018 1:24 PM CDT Supervision of high-risk of elderly multigravida HIV ANTIGEN ANTIBODY WTQTQHhchvvt21/12/2018 10:57 AM CDT Supervision of high-risk of elderly multigravida HPV HIGH RISK TYPES DNA CKVJQLFLQamyzhz64/12/2018 10:40 AM CDT Supervision of high-risk of elderly multigravida ASTHMA ACTION UZCZTszwqyq33/16/2017 10:52 AM DATABASE ADMINISTRATION ASSOCIATE Asthma, intermittent, uncomplicated from Last 3 Months or Most Recently Relevant to Health Maintenance Results * CTA Head Neck with Contrast (07/27/2025 12:46 AM DATABASE ADMINISTRATION ASSOCIATE)Anatomical Region LateralityModalityHead, SUBRAD CT NEURO, SUBRAD CT NEURO, UMP CT NEURO, RAD CT Computed TomographySpecimen (Source)Anatomical Location / LateralityCollection Method / VolumeCollection TimeReceived Time07/27/2025 12:46 AM DATABASE ADMINISTRATION ASSOCIATE Impressions 07/27/2025 1:13 AM DATABASE ADMINISTRATION ASSOCIATE IMPRESSION: HEAD CT: 1. ??Moderately limited by motion. No definite acute intracranial abnormality. HEAD CTA: 1. ??No high-grade stenosis, branch occlusion, or aneurysm. NECK CTA: 1. ??No high-grade stenosis or dissection. Narrative 07/27/2025 1:13 AM DATABASE ADMINISTRATION ASSOCIATE EXAM: CT HEAD W/O CONTRAST, CTA HEAD NECK W CONTRAST LOCATION: [facility] DATE: 07/27/2025 INDICATION: GERBER, sinus pain, [...] CONTRAST, CTA HEAD NECK W CONTRAST LOCATION: [facility] DATE: 07/27/2025 INDICATION: GERBER, sinus pain, [...] stenosis/occlusion, aneurysm, or high flowvascular malformation. Standard table [place] anatomy. POSTERIOR CIRCULATION: No stenosis/occlusion, [...] or dissection. Authorizing ProviderResult TypeResult StatusAndevelin Reed [facility] CT ORDERABLES Final Result * CT Head w/o Contrast (07/27/2025 12:46 AM DATABASE ADMINISTRATION ASSOCIATE)Anatomical RegionLaterality ModalityHead, SUBRAD CT NEURO, SUBRAD CT NEURO, UMP CT NEURO, RAD CTComputed TomographySpecimen (Source)Anatomical Location / LateralityCollection Method / VolumeCollection TimeReceived Time07/27/2025 12:46 AM DATABASE ADMINISTRATION ASSOCIATE Impressions 07/27/2025 1:13 AM DATABASE ADMINISTRATION ASSOCIATE IMPRESSION: HEAD CT: 1. ??Moderately limited by motion. No definite acute intracranial abnormality. HEAD CTA: 1. ??No high-grade stenosis, branch occlusion, or aneurysm. NECK CTA: 1. ??No high-grade stenosis or dissection. Narrative 07/27/2025 1:13 AM DATABASE ADMINISTRATION ASSOCIATE EXAM: CT HEAD W/O CONTRAST, CTA HEAD NECK W CONTRAST LOCATION: [facility] DATE: 07/27/2025 INDICATION: GERBER, sinus pain, [...] CONTRAST, CTA HEAD NECK W CONTRAST LOCATION: [facility] DATE: 07/27/2025 INDICATION: GERBER, sinus pain, [...] stenosis/occlusion, aneurysm, or high flowvascular malformation. Standard table [place] anatomy. POSTERIOR CIRCULATION: No stenosis/occlusion, [...] or dissection. Authorizing ProviderResult TypeResult StatusJeyson Reed MDTULSA [facility] [place] ORDERABLES Final Result * Extra Red Top Tube (07/26/2025 10:48 PM DATABASE ADMINISTRATION ASSOCIATE)ComponentValueRef RangeTest Method Analysis TimePerformed AtPathologist SignatureHold EpxfzcspNWF01/09/2025 12:01 AM [facility] LABORATORYSpecimen (Source)Anatomical Location / LateralityCollection Method / VolumeCollection TimeReceived TimeBloodBLOOD SPECIMEN / Unknown Venipuncture / Cfbgqzb4907/26/2025 10:48 PM CST07/26/2025 10:54 PM DATABASE ADMINISTRATION ASSOCIATE Narrative Authorizing ProviderResult TypeResult StatusJeyson BAIRES - BLOOD ORDERABLESFinal ResultPerforming OrganizationAddressCity/State/ZIP CodePhone Number [facility] Acute Care Lab [address] (1st floor, no room number) [place] [address], [facility] * Extra Blue Top Tube (07/26/2025 10:48 PM DATABASE ADMINISTRATION ASSOCIATE)ComponentValueRef RangeTest MethodAnalysis TimePerformed AtPathologist SignatureHold QneugfebBFI54/09/2025 12:01 AM [facility] LABORATORYSpecimen (Source)Anatomical Location / Laterality Collection Method / VolumeCollection TimeReceived TimeBloodBLOOD SPECIMEN / UnknownVenipuncture / Mqawuti3407/26/2025 10:48 PM CST07/26/2025 10:54 PM DATABASE ADMINISTRATION ASSOCIATE Narrative Authorizing ProviderResult TypeResult StatusJeyson Reed MDLAB - BLOOD ORDERABLESFinal ResultPerforming OrganizationAddressCity/State/ZIP CodePhone Number LABORATORY [facility] Acute Care Lab [address] (1st floor, no room number) [place] [address] * CBC with platelets and differential (07/26/2025 10:48 PM DATABASE ADMINISTRATION ASSOCIATE)ComponentValueRef RangeTest MethodAnalysis TimePerformed AtPathologist SignatureWBC Count6.94 4.00 - 11.00 10e3/uL07/26/2025 10:56 PM [facility] LABORATORYRBC Count4.613.80 - 5.20 10e6/uL07/26/2025 10:56 PM [facility] XTFUUAWZLQJxpslekkbz49.411.7 - 15.7 g/dL 07/26/2025 10:56 PM [facility] PDGVXGSERMIrdjvsnose30.535.0 - 47.0 %07/26/2025 10:56 PM [facility] ARBMYLGVYOKAU42.078.0 - 100.0 fL07/26/2025 10:56 PM [facility] UWGPNEKMDNRZU05.226.5 - 33.0 pg07/26/2025 10:56 PM [facility] LXWOOGOFIDDDMK22.7 31.5 - 36.5 g/dL07/26/2025 10:56 PM [facility] EGMDCLNDKJZJK83.310.0 - 15.0 % 07/26/2025 10:56 PM [facility] LABORATORYPlatelet Jygra425970 - 450 10e3/uL 07/26/2025 10:56 PM [facility]% Mzmrjzsmman21.4%07/26/2025 10:56 PM [facility]% Jbpeqbgxasv37.0%07/26/2025 10:56 PM [facility]% Monocytes 7.8%07/26/2025 10:56 PM [facility]% Eosinophils1.2%07/26/2025 10:56 PM [facility]% Basophils0.3%07/26/2025 10:56 PM [facility]% Immature Granulocytes0.3%07/26/2025 10:56 PM [facility] LABORATORYNRBCs per 100 WBC0.0<1.0 /5323107/26/2025 10:56 PM CST LABORATORYAbsolute Neutrophils4.201.60 - 8.30 10e3/uL07/26/2025 10:56 PM [facility]ST LABORATORYAbsolute Lymphocytes2.080.80 - 5.30 10e3/uL07/26/2025 10:56 PM CST LABORATORYAbsolute Monocytes0.540.00 - 1.30 10e3/uL07/26/2025 10:56 PM CST LABORATORYAbsolute Eosinophils0.080.00 - 0.70 10e3/uL07/26/2025 10:56 PM CST LABORATORYAbsolute Basophils<0.030.00 - 0.20 10e3/uL07/26/2025 10:56 PM [facility] LABORATORYAbsolute Immature Granulocytes<0.03 <=0.40 10e3/uL07/26/2025 10:56 PM [facility] LABORATORYAbsolute NRBCs<0.0310e3/uL 07/26/2025 10:56 PM [facility] LABORATORYSpecimen (Source)Anatomical Location / LateralityCollection Method / VolumeCollection TimeReceived TimeBloodBLOOD SPECIMEN / UnknownVenipuncture / Spuwkae2407/26/2025 10:48 PM CST07/26/2025 10:54 PM DATABASE ADMINISTRATION ASSOCIATE Narrative Authorizing ProviderResult TypeResult StatusAndevelin Reed MDLAB - BLOOD ORDERABLESFinal ResultPerforming OrganizationAddressCity/State/ZIP CodePhone Number [facility] Lab [address] (1st floor, no room number) [place] [address], [facility] * Basic Metabolic Panel (Limited Occurrences) (07/26/2025 10:48 PM DATABASE ADMINISTRATION ASSOCIATE)Component ValueRef RangeTest MethodAnalysis TimePerformed AtPathologist SignatureSodium 182218 - 145 mmol/L109/25/2024 11:25 PM [facility] LABORATORYPotassium3.93.4 - 5.3 mmol/L109/25/2024 11:25 PM CST WVFRLKGEGYWphedpzb97179 - 107 mmol/L109/25/2024 11:25 PM [facility] LABORATORYCarbon Dioxide (CO2)2422 - 29 mmol/L109/25/2024 11:25 PM [facility] LABORATORYAnion Inn787 - 15 mmol/L109/25/2024 11:25 PM [facility] LABORATORYUrea Gxdkgkxz87.96.0 - 20.0 mg/dL07/26/2025 11:25 PM [facility] LABORATORYCreatinine0.690.51 - 0.95 mg/dL07/26/2025 11:25 PM [facility] GFR Estimate>90>60 mL/min/1.27n30007/26/2025 11:25 PM [facility] LABORATORYComment: eGFR calculated using 2020 CKD-EPI equation.Calcium9.18.8 - 10.4 mg/dL 07/26/2025 11:25 PM [facility] ZUHNAQYQXOKuvujff8913 - 99 mg/dL07/26/2025 11:25 PM [facility] LABORATORYSpecimen (Source)Anatomical Location / LateralityCollection Method / VolumeCollection TimeReceived TimeBloodBLOOD SPECIMEN / Unknown Venipuncture / Mjmqibi4107/26/2025 10:48 PM CST07/26/2025 10:54 PM DATABASE ADMINISTRATION ASSOCIATE Narrative Authorizing ProviderResult TypeResult StatusAndevelin Reed MDLAB - BLOOD ORDERABLESFinal ResultPerforming OrganizationAddressCity/State/ZIP CodePhone Number [facility] Lab [address] (1st floor, no room number) [place] [address], [facility] * (ABNORMAL) Lipid panel reflex to direct LDL Fasting (11/04/2019 8:49 AM DATABASE ADMINISTRATION ASSOCIATE) ComponentValueRef RangeTest MethodAnalysis TimePerformed AtPathologist HznqtczbxOcbklwaappr664<200 mg/dL11/04/2019 2:48 PM [facility] ULETHTBdvvkhxbviqgg229(H)<150 mg/dL11/04/2019 2:53 PM [facility] OXBOROComment: Borderline high: ??150-199 mg/dl High: ? 200-499 mg/dl Very high: >499 mg/dl Fasting specimen HDL Ymzhlfcjrep12(L)>49 mg/dL11/04/2019 3:06 PM [facility] OXBOROLDL Cholesterol Fbedqbicoj34<100 mg/dL11/04/2019 3:06 PM [facility]STJ[facility] OXBANNER BAYWOOD MEDICAL CENTEROComment:Desirable: <100 mg/dlNon HDL Cuofqnzxftc744 <130 mg/dL11/04/2019 3:06 PM [facility]STJ[facility] OXBANNER BAYWOOD MEDICAL CENTEROSpecimen (Source)Anatomical Location / LateralityCollection Method / VolumeCollection TimeReceived TimeBlood specimen (specimen)11/04/2019 8:49 AM CST11/04/2019 8:50 AM DATABASE ADMINISTRATION ASSOCIATE Narrative Authorizing ProviderResult TypeResult StatusLily Cruz FIELD MARKETER CNMLAB - BLOOD ORDERABLESFinal ResultPerforming OrganizationAddressCity/State/ZIP Code Phone Number [facility] [address] [place] [address] * Hepatitis C antibody (09/28/2018 7:50 AM DATABASE ADMINISTRATION ASSOCIATE)ComponentValueRef RangeTest MethodAnalysis TimePerformed AtPathologist SignatureHepatitis C Antibody NonreactiveNR^Ozkdqxkwkei90/11/2019 7:14 PM CSTUNBRANDENBURG CENTERComment: Assay performance characteristics have not been established for newborns, infants, and children Specimen (Source)Anatomical Location / LateralityCollection Method / Volume Collection TimeReceived TimeBlood specimen (specimen)09/28/2018 7:50 AM DATABASE ADMINISTRATION ASSOCIATE 09/28/2018 8:48 AM DATABASE ADMINISTRATION ASSOCIATE Narrative Authorizing ProviderResult TypeResult StatusAndrei Avilez FIELD MARKETER CNMLAB - BLOOD ORDERABLESFinal ResultPerforming OrganizationAddressCity/State/ZIP Code Phone Number [facility] [address] [place] [address] * Pap imaged thin layer screen with HPV - recommended age 30 - 65 years (select HPV order below) (05/30/2018 1:24 PM CDT)ComponentValueRef RangeTest Method Analysis TimePerformed AtPathologist SignaturePAPNILCOPATHCopath Report Patient Name: SHU JONES MR#: [id number] Specimen #: [id number] Collected: 05/30/2018 Received: 05/31/2018 Reported: 06/02/2018 07:09 [...] (ASCP) Processed and screened at [facility], [facility] CLINICAL HISTORY: LMP: 04/04/2018 , A previous normal pap Date of Last Pap: 10/06/2015, Papanicolaou Test Limitations: ??Cervical cytology is a screening test with limited sensitivity; regular screening is critical for cancer prevention; Pap tests are primarily effective for the diagnosis/prevention of squamous cell carcinoma, not adenocarcinomas or other cancers. TESTING LAB LOCATION: [address] ??[address] COLLECTION SITE: Client: ??[facility] Location: WEOB (S)COPATHSpecimen (Source)Anatomical Location / Laterality Collection Method / VolumeCollection TimeReceived TimeCytologic material (specimen)05/30/2018 1:24 PM CDT05/31/2018 10:03 AM CDT Narrative Authorizing ProviderResult TypeResult StatusChristine Radha Cornoa APRN CNPLAB - OPTIME CLINICAL SPECIMENFinal ResultPerforming OrganizationAddressCity/State/ZIP CodePhone Number [facility] * HIV Antigen Antibody Combo (05/30/2018 10:57 AM CDT)ComponentValueRef Range Test MethodAnalysis TimePerformed AtPathologist SignatureHIV Antigen Antibody ComboNonreactiveNR^Kwpvqdkqigo62/13/2018 11:17 AM CDTUNBRANDENBURG CENTERComment:HIV-1 p24 Ag & HIV-1/HIV-2 Ab Not DetectedSpecimen (Source)Anatomical Location / LateralityCollection Method / VolumeCollection TimeReceived TimeBlood specimen (specimen)05/30/2018 10:57 AM CDT05/30/2018 10:58 AM CDT Narrative Authorizing ProviderResult TypeResult StatusChristine Radha Corona APRN CNPLAB - BLOOD ORDERABLESFinal ResultPerforming OrganizationAddressCity/State/ZIP Code Phone Number [facility] [address] [place] [address] * HPV High Risk Types DNA Cervical (05/30/2018 10:40 AM CDT)ComponentValueRef RangeTest MethodAnalysis TimePerformed AtPathologist SignatureHPV Source CsqgOtlx90/12/2018 1:24 PM CDTFAIROHIO STATE HARDING HOSPITAL CENTER FOR WOMEN EDINAHPV 16 DNA NegativeNEG^Dplimchd73/17/2018 3:55 PM CDTMT. WASHINGTON PEDIATRIC HOSPITALHPV 18 DNANegativeNEG^Tldiwvtq35/17/2018 3:55 PM CDTMT. WASHINGTON PEDIATRIC HOSPITALOther HR HPVNegativeNEG^Smlvrxpm16/17/2018 3:55 PM CDTMT. WASHINGTON PEDIATRIC HOSPITALFinal DiagnosisThis [...] is recommended. Specimen DescriptionCervical Cells05/30/2018 1:24 PM CDTUNBRANDENBURG CENTERComment:C18 75085Fgipskkg (Source)Anatomical Location / LateralityCollection Method / VolumeCollection TimeReceived TimeCervical Cells CERVIX UTERI STRUCTURE / Phtehem7005/30/2018 10:40 AM CDT05/30/2018 1:30 PM CDT Narrative Authorizing ProviderResult TypeResult StatusChristine Radha Corona FIELD MARKETER CNPLAB - BLOOD ORDERABLESFinal ResultPerforming OrganizationAddressCity/State/ZIP Code Phone Number [facility] [address] [place] [address] [facility] [address] [place] [phone] from Last 3 Months or Most Recently Relevant to Health Maintenance Insurance Care Teams Team MemberRelationshipSpecialtyStart [address] [phone] PCP - Imoscvc95/8/25
[2025-09-08 01:26] LABS: Anion Gap 7 mEq/L (7-15); Blood Urea Nitrogen* 19 mg/dL (5-24); Carbon Dioxide* 25 mmol/L (20-32); Creatinine* 0.6 mg/dL (0.5-1.5); Est. Creatinine Clearance* 118.78; Estimated Glomerular Filt Rate 115 ml/min; Glucose* 95 mg/dL (60-115)
--- OUTSIDE RECORDS SUMMARY | 2025-09-08 01:26 | XMS_ITS | Clinical Summary ---
Author Organization [facility] Address [facility] [place] [address] Care Team Providers Care Harpsichord Maker Name Role Phone Fannie Albright NP Primary Care Provide r Allergies Active AllergyReactionsCriticalityNoted DateCommentsBuspironeItchingMedium 07/07/2019 tingling tingling XptceccljihCieum28/19/2016 Pt reports tongue swelling Erythromycin*Gqvszbi3709/01/20159894LamlrccqgmBuflpwzhuwgHepe78/18/2023 Hydrocodone-AcetaminophenItching,HdyhpXsqqeq33/06/2020MorphineItchingMedium 07/07/20199227EaldzpwvgigRmvxylmfykiAldx55/10/1990OzhicyzgfkNqmzpwpUbg73/16/2022 Medications MedicationSigDispense QuantityRefillsLast FilledStart DateEnd DateStatus EPINEPHrine [...] mouth 2 times daily if needed. FOR XYULQOR8207/20/2022ctive albuterol-ipratropium (DUONEB) (2.5-0.5 mg) in 3 mL [...] mL 5Active Active Problems ProblemNoted DateDiagnosed DateCervical tpmffsbygxois73/23/2025Spinal stenosis, cervical akfdsw6004/09/2025SCUS of cervix with negative high risk HPV03/10/2025 Overview (03/10/2025): 02/2025 ASCUS/HPV negative Plan: HPV based testing due 02/2028 Obstructive sleep apnea02/27/2025SVT (supraventricular tachycardia)11/28/2024 Acute cough07/02/2024Sore gwxcig3207/02/2024Nonintractable sooacatj45/15/2024MRSA (methicillin resistant staph aureus) culture eeblllci21/16/2024Heart mmtdxdubzejo63/22/2023Symptomatic PVCs02/06/2023lass 1 obesity with body mass index (BMI) of 33.0 to 33.9 in adult03/03/2022High uqpunlhcuzaes69/17/2020 Overview (12/05/2023): 150 in 2019, recheck at [...] Overview (12/05/2023): IUD type: Mirena Lot # [id number] [facility]# [id number] Due to be removed on or before 11/04/2024 IUD type: Mirena Lot # [id number] [facility]# [id number] Due to be removed on or before 11/04/2024 IUD type: Mirena Lot # [id number] [facility]# [id number] Due to be removed on or before 11/04/2024 IUD type: Mirena Lot # [id number] [facility]# [id number] Due to be removed on or before 11/04/2024 IUD type: Mirena Lot # [id number] [facility]# [id number] Due to be removed on or before 11/04/2024 Formatting of this note might be different fromthe original. IUD type: Mirena Lot # [id number] NDC# [id number] Due to be removed on or before 11/04/2024 Encounter for elective induction of labor01/02/2019Supervision of elderly multigravida in third hywpljwqt95/26/2018 Overview (12/05/2023): 01/02 4/17 Missed oloeyoqo69/28/2018 Overview (12/05/2023): 03-13-18. See phone notes Overview: 03-13-18. See phone notes Asthma, gpggaeypoorn69/25/2018Controlled substance agreement mrbdrd9111/16/2017 Overview (12/05/2023): Overview: Diagnosis: Panic attack Medication: [...] Clinician: Miguelina Hansen PA-C Recurrent candidiasis of eaabtt4110/03/2017Chronic ahbstxyf97/19/2017Major depressive disorder, recurrent episode, ffyvxepw89/20/2017Chronic tension-type /09/2015rthralgia of temporomandibular joint07/21/2015rticular disc disorder [...] Psychiatry DIRE Total Score(s): Not indicated Last [facility] website verification: Yes 08/07/2017- Patient filled Rx 03/08/2017 for ACETAMINOP- CODEINE 120 from a non [facility] provider. [email or web address]://[email or web address]/ Overview: Overview: Formatting of this note may [...] Psychiatry DIRE Total Score(s): Not indicated Last [facility] website verification: Yes 08/07/2017- Patient filled Rx 03/08/2017 for ACETAMINOP- CODEINE 120 from a non [facility] provider. [email or web address]://[email or web address]/ Overview: Formatting of this note may be [...] Psychiatry DIRE Total Score(s): Not indicated Last [facility] website verification: Yes 08/07/2017- Patient filled Rx 03/08/2017 for ACETAMINOP- CODEINE 120 from a non [facility] provider. [email or web address]/ Patient is followed by Mili Cary PA-C [...] Psychiatry DIRE Total Score(s): Not indicated Last [facility] website verification: Yes 08/07/2017- Patient filled Rx 03/08/2017 for ACETAMINOP- CODEINE 120 from a non [facility] provider. [email or web address]/ Overview: Overview: Formatting of this note may [...] Psychiatry DIRE Total Score(s): Not indicated Last [facility] website verification: Yes 08/07/2017- Patient filled Rx 03/08/2017 for ACETAMINOP- CODEINE 120 from a non [facility] provider. [email or web address]://[email or web address]/ Overview: Overview: Formatting of this note may [...] Psychiatry DIRE Total Score(s): Not indicated Last [facility] website verification: Yes 08/07/2017- Patient filled Rx 03/08/2017 for ACETAMINOP- CODEINE 120 from a non [facility] provider. [email or web address]/ Patient is followed by Mili Cary PA-C [...] Psychiatry DIRE Total Score(s): Not indicated Last [facility] website verification: Yes 08/07/2017- Patient filled Rx 03/08/2017 for ACETAMINOP- CODEINE 120 from a non [facility] provider. [email or web address]://[email or web address]/ Overview: Overview: Formatting of this note may [...] Psychiatry DIRE Total Score(s): Not indicated Last [facility] website verification: Yes 08/07/2017- Patient filled Rx 03/08/2017 for ACETAMINOP- CODEINE 120 from a non [facility] provider. [email or web address]://[email or web address]/ Overview: Formatting of this note may be [...] Psychiatry DIRE Total Score(s): Not indicated Last [facility] website verification: Yes 08/07/2017- Patient filled Rx 03/08/2017 for ACETAMINOP- CODEINE 120 from a non [facility] provider. https://[email or web address]/ Headache, variant rsqquugx33/27/2719Mbcumx23/20/2010Chronic constipation 07/02/2010Genital yfvpqm9607/02/2010 Overview (12/05/2023): Overview: Started Acyclovir on 09/22/16 [...] had an outbreak for 8 years. Encounters DateTypeDepartFreeman Heart Institute RuupQxvrlhjmcjl24/19/2025Telephone [facility] [address] [place] [address] Donald Ford OD Appointment (Vision changes )08/04/2025 2:00 PM CSTTelemedicine [facility] [address] [place] [address] Fannie Albright, JARETT Medication Uxtqgtrzcp02/12/1542Ismcgc30/13/2025Refill [facility] [address] [place] [address] Fannie Albright NP Refill Request (Zepbound)from Last 3 Months Immunizations ImmunizationAdministration DatesNext DueHepatitis B (Adult)11/06/2013,11/06/2013 ,10/04/2013,10/04/2013Hepatitis B (Peds)11/06/2013,10/04/2013INFLUENZA, IIV3 PF (AGE >= 6 MO)05/20/2024Influenza A (H1N1), Kpahxgwvynl66/30/2009Influenza Virus, Exkxewwqeas37/16/2023,06/12/2021,06/12/2021,06/23/2020,06/23/2020,08/15/2017, 08/15/2017,07/06/2015,07/06/2015,06/05/2014,06/05/2014,06/11/2013,06/11/2013, 06/11/2013,10/02/2012,07/09/2010,06/15/2009Influenza, IIV3 (Age >=3 years) 10/02/2012,07/09/2010,06/15/2009Influenza, UKN136,11/03/2022,06/12/2021, 06/23/2020,08/15/2017,07/06/2015,06/05/2014,06/11/2013Influenza,CCIIV4 PRESERV FREE06/14/2023MMR09/30/2016Pneumococcal Conj 20-valent (Prevnar 20)02/01/2022 Pneumococcal Poly,23-Valent (Pneumovax)12/18/2017,12/29/20108537Otfxgsxx05/15/2024, 03/25/2024,03/21/2024,03/18/2024Tdap03/16/2024,10/26/2018,07/14/2016,06/04/2013, 06/15/2009Tuberculin Skin Test, Xlduswxbyea28/19/2014 Family History RelationNameStatusCommentsFatherDeceasedMotherAlive Social History Tobacco UseTypesPacks/DayYears UsedDateSmoking Tobacco: UpkizzHjseigjvuj2Tivc: 03/11/2018Passive Smoke Exposure: PastSmokeless Tobacco: Current Tobacco Cessation:Ready to Q uit: Not Asked; Counseling Given: Not Answered Alcohol UseStandard Drinks/WeekCommentsNo0 (1 standard drink = 0.6 oz pure alcohol)PHQ-2AnswerDate RecordedPHQ-2 TOTAL RCJZO092Social Connections AnswerDate RecordedDo you often feel lonely or isolated from those around you?0 11/28/2024Financial Resource StrainAnswerDate RecordedDifficulty of Paying Living Ychpffbg868/13/2025Difficulty of Paying Living ExpensesNot on file 11/28/2024Food [...] Recorded Sex Assigned at BirthNot on fileLegal WuaGpigpz15/14/2013 5:43 AM CSTGender IdentityNot on fileSexual OrientationNot on file Obstetrics History GravidaParaTermPretermABIABSABEctopicMultipleLivingLive Cjuxrr87063331Kmri OutcomeGATotal LaborLabor/2nd/8bwRuuhxmDlfBarmGoahDPLIimU0M1IvtoJaiy59/23/2002 BOM20m1hVsyzx Comments:D&O7604YXU93/02/4126Ocum66z3oVYsf-YggfdJbjvzkEzham Delivery Location:Ivhsgu4506/03/20133961Dilt79u4j5y 44m4h 25m/0h 12m/0h 07m3.74 kg (8 lb 3.8 oz)BYrbmfxrgUsocpe99YictssbFkowdvsptsb Roger Delgado MDDelivery Location:[facility]/29/20165088Xtsa62x8d1z 15m4h 09m/0h 02m/0h 04m 2.88 kg (6 lb 5.6 oz)MVag-KxerpGhitVxtdyt52Byxjdnh Ashu Benavides PATIENT CARE COORDINATOR CNM Delivery Location:[facility]03/12/20183808HXR2k1d69/17/2019Term 76d1t3k 06m0h 02m/0h 04m3.35 kg (7 lb 6.2 oz)MVag-GpcmwOopkZWsexrx55 JAMAR,MALE-Dm Avilez PATIENT CARE COORDINATOR CNMDelivery Location:[facility] ([address]) Last Filed Vital Signs Vital SignReadingTime TakenCommentsBlood Dgrwqgoc754/7408 10:22 AM CDT Phvpo550004/26/2025 10:22 AM OWNWhtwvfyqpme21.1 ??C (96.9 ??F)04/26/2025 10:22 AM CDTRespiratory Xdku162404/26/2025 10:22 AM CDTOxygen Jcwufgctyz525%04/26/2025 10:22 AM CDTInhaled Oxygen Concentration--Dsagjo47.6 kg (204 lb 3.2 oz) 04/09/2025 8:44 AM FYRWrqwky460.6 cm (5' 5.98)02/19/2025 10:08 AM CDTBody Mass Index32.9702/19/2025 10:08 AM CDT Plan of Treatment DateTypeDepartmentCare Team (Latest Contact Info)Mkxbndmnfqx21/06/2026 7:30 AM CSTAncillary Procedure [facility] [address] [place] [address] Health MaintenanceDue DateLast DoneCommentsHPV series for age [...] (Verified in Care Everywhere or Patient Record)Tetanus dozbqch1203/16/2034 03/16/2024, 10/26/2018, 07/14/2016, Additional history existsPneumococcal series for age 6-90Iqnhnpunv10/17/2022, 12/18/2017, 12/29/2010Hepatitis C screening for age 18-40Giyvwkoqv59/16/2023 (Verified in Care Everywhere or Patient Record) Overridden with the intention of not completing the topicHIV for age 15-65 Zzgdmlwkw49/29/2023 (Verified in Care Everywhere or Patient Record)Overridden with the intention of not completing the topic Procedures Procedure NamePriorityDate/TimeAssociated DiagnosisCommentsHPV HIGH RISKRoutine 02/19/2025 10:50 AM CDT Screening for cervical cancer from Last 3 Months or Most Recently Relevant to Health Maintenance Results * HPV HIGH RISK (02/19/2025 10:50 AM CDT)ComponentValueRef RangeTest Method Analysis TimePerformed AtPathologist SignatureTYPE 16NegativeNegative 02/26/2025 2:22 PM CDBOLIVAR MEDICAL CENTERCENTRAL LABORATORYTYPE 18 OngfwlcwJrosgbhj36/11/2025 2:22 PM [facility] LABORATORYOTHER HIGH RISK FZFMZSvqsgqthSkhjsvha36/11/2025 2:22 PM [facility] LABORATORYSpecimen (Source)Anatomical Location / LateralityCollection Method / VolumeCollection TimeReceived TimeOther (Cervical)Non-Blood / Dtripnb9002/19/2025 10:50 AM CDT02/20/2025 11:47 AM CDT Narrative [facility] - 02/26/2025 2:22 PM CDT HPV types 16, 18, 31, 33, 35, 39, 45, 51, 52, 56, 58, 59, 66 and 68 DNA were undetectable or below the pre-set threshold. Methodology: Evan Vicky 4800 HPV Test Authorizing ProviderResult TypeResult StatusSherri Jaquelin Manueltvencor hospital DOMICROBIOLOGY Final ResultPerforming OrganizationAddressCity/State/ZIP CodePhone Number [facility] [address] [address], from Last 3 Months or Most Recently Relevant to Health Maintenance Insurance [place] [id number] Care Teams Team MemberRelationshipSpecialtyStart DateEnd Date Fannie Albright NP [address] [place], [place] [phone] PCP - GeneralNurse Practitioner06/06/25
--- OUTSIDE RECORDS SUMMARY | 2025-09-08 01:26 | XMS_ITS | Patient Health Record ---
Author Organization [facility] Address [facility] [address] [place] [address] Care Team Providers Care Paper Cleaner Name Role Phone RUTHIE MONTANEZ Unavailable [phone] Reason For Referral No Information Medications Medication SIG (Take, Route, Frequency, Duration) Notes Start Date End Date Status predniSONE 20 MG Tablet Add'l Sig. Dispense 12. Oral 06/08/2015ctivemetroNIDAZOLE 0.75 % GelAdd'l Sig. Dispense 70. Vaginal 29 06/08/2015ctiveEpiPen 2-Harrison 0.3 mg/0.3 mL (1:1,000) Solution Auto-injectorAdd'l Sig. Dispense 2. Injection 29*Pick strength-form from [employer] for eRX* 06/08/2015ctiveLansoprazole 30 MG Capsule Delayed ReleaseAdd'l Sig. Dispense 30. Oral ctivediphenhydrAMINE HCl 25 MG CapsuleAdd'l Sig. Dispense 40. Oral ctiveRanitidine HCl 150 MG TabletAdd'l Sig. Dispense 10. Oral ctive Problems Problem Type SNOMED Code ICD Code Onset Dates Problem Status W/U Status Risk Notes Problem Chronic tension-type headache (370674821) Chronic tension-type headache, not intractable (G44.229) 08/26/2015 Active confirmed ProblemArthralgia of temporomandibular joint (82612829)Arthralgia of temporomandibular joint (M26.62)07/21/2015ctiveconfirmedProblemArticular disc disorder of temporomandibular joint (51443684)Articular disc disorder of temporomandibular joint (M26.63)07/21/2015ctiveconfirmedProblemCervicalgia (95319469)Cervicalgia (M54.2)08/26/2015ctiveconfirmedProblemMyalgia (24794793) Myalgia (M79.1)07/21/2015ctiveconfirmedProblemObstructive sleep apnea (84718410)Obstructive Sleep Apnea (327.23)Activeconfirmed Plan Of Treatment No Information Insurance Providers Payer Name Payer Address Payer Phone Subscriber Number Group Number Insured Name Patient Relationship to Insured Coverage Start Date Coverage End Date [employer] [address] [address] [place] [address] [id number] Katelynn Jones Self - patient is the insured
--- OUTSIDE RECORDS SUMMARY | 2025-09-08 01:26 | XMS_ITS | Clinical Summary ---
[facility] Address [address], [place] [address] Care Team Providers Care Plastic Welder Name Role Phone Provider, External MD Primary [...] for each transition of care or referral. [employer] Allergies Active AllergyReactionsCriticalityNoted UfoqXwyfbftnAdetkjshxXdnofsz62/20/2019 tingling MneprlplkbeDlhuzlgkollXbyq61/19/6970CuvfjanpvbffYqaltajqbvwBjjn14/19/2017 Hydrocodone-MkvcpnnqxmjclRqaizmlSsclmq26/06/2020FamotidineAnaphylaxisHigh 05/04/20232290DjiwshjiayWdjfrcrFwj35/16/2022Morphine And CouwobfYsdsbye43/20/2019 Medications MedicationSigDispense QuantityRefillsLast FilledStart DateEnd DateStatus EPINEPHrine [...] Tablet 06/09/2024ctive Active Problems ProblemNoted DateDiagnosed DateHeart oymvcxaspemk75/22/2023Symptomatic PVCs 02/06/2023lass 1 obesity with body mass index (BMI) of 33.0 to 33.9 in adult 03/03/2022High juonljjxoybwy35/17/2020 Overview (02/21/2023): 150 in 2019, recheck at 2020 annual 150 in 2019, recheck at 2020 annual 150 in 2019, recheck at 2020 annual IUD (intrauterine device) in place11/04/2019 Overview (02/21/2023): IUD type: Mirena Lot # [id number] [facility]# [id number] Due to be removed on or before 11/04/2024 Formatting of this note might be different fromthe original. IUD type: Mirena Lot # [id number] [facility]# [id number] Due to be removed on or before 11/04/2024 Encounter for elective induction of labor01/02/2019NSVD (normal spontaneous vaginal delivery)01/02/2019Lactating rmbogd1301/02/2019Supervision of elderly multigravida in third wltdihrde28/26/2018 Overview (02/21/2023): 01/02 Missed soyaycmm57/28/2018 Overview (03/15/2018): 03-13-18. See phone notes Asthma, tfbldmmjdcyj57/25/2018Genital udzumf9512/04/2017 Overview (03/12/2018): Overview: Started Acyclovir on 09/22/16 at 38w1d. Patient states she has been taking 1 pill every other day up till this point. She states she has not had an outbreak for 8 years. Controlled substance agreement oemxjh3611/16/2017 Overview (11/16/2017): Diagnosis: Panic attack Medication: clonazepam Controlled Substance Agreement reviewed and signed: yes Date agreement signed: 11/16/2017 Refill plan: 30 q 6 months Clinician: Miguelina Hansen PA-C Chronic mawwsnfl99/19/2017Panic yqtxlmed20/19/2017Major depressive disorder, recurrent episode, qdgvodak28/20/2017GERD (gastroesophageal reflux disease) 12/28/20129753Dxqjrjc07/15/2013 Overview (03/12/2018): Overview: Formatting of this note [...] DIRE Total Score(s): Not indicated Last [facility] website verification: Yes 08/07/2017- Patient filled Rx 03/08/2017 for ACETAMINOP- CODEINE 120 from a non [facility] provider. [email or web address]/ Headache, variant hvytktvh56/27/2011Chronic sxhubxwohdvq00/15/2010 Resolved Problems ProblemNoted DateDiagnosed DateResolved DateFamily history of diabetes mellitus in mlazkg12Recurrent candidiasis of igapvr47 Encounters DateTypeDepartmentCare TscsEckxmfussrm41/19/2025Notes/Orders Security Contact-Chiara Oliver, RDN, LD from Last 3 Months Immunizations ImmunizationAdministration DatesNext DueFlu Vac (3+ yrs)06/11/2013,10/02/2012, 07/09/2010,06/15/20096935P6O3-Gjeqvrucbd77/30/2009HepB Adult (Engerix-B, 20+ yrs, 3 dose series)11/06/2013,10/04/2013HepB Ped/Adol (0-18 yrs)11/06/2013,10/04/2013 Influenza ([place] Only) (Flulaval Quad 0.5, 3+ yrs)06/11/2013,10/02/2012, 07/09/2010,06/15/2009Influenza (Flucelvax), Preserv Free QIV06/14/2023Influenza IIV4 (Quadrivalent) 0.5mL (79110)11/03/2022,06/12/2021,06/23/2020,08/15/2017, 08/15/2017,07/06/2015,06/05/2014,06/11/2013Influenza aIIV3 65+ Years (Fluad) 06/12/2021,06/23/2020,08/15/2017,07/06/2015,06/05/2014,06/11/2013MMR09/30/2016 Moderna Monovalent 12+07/25/2021,10/14/2020,09/16/2020PCV20 (Yyfslno50) 9972QRSW93 (Pneumovax)12/18/2017,12/29/2010Pfizer Bivalent 12+11/03/2022 Tdap03/16/2024,10/26/2018,07/14/2016,06/04/2013,06/15/2009 Family History Medical HistoryRelationNameCommentsCirrhosisBirth FatherSuicideBirth Father Diabetes, Type IIBirth MotherDiabetes, Type IISister 1KelleyRelationNameStatus CommentsBirth FatherDeceasedBirth MotherAliveSister 1KelleyAliveSister 2Alive Social History Tobacco UseTypesPacks/DayYears UsedDateSmoking Tobacco: FormerCigarettesPassive Smoke Exposure: NeverSmokeless Tobacco: Never Tobacco Cessation:Counseling Given: Not Answered Alcohol UseStandard Drinks/WeekCommentsNo0 (1 standard drink = 0.6 oz pure alcohol)CommentsNoSex and Gender InformationValueDate RecordedSex Assigned at BirthNot on fileLegal RzgZkbttu96/10/2012 6:57 AM CDTGender Identity Not on fileSexual OrientationNot on 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 Ray HartNot on fileNot on fileNot on file Last Filed Vital Signs Vital SignReadingTime TakenCommentsBlood Nfgqzhdl383/73/ 8:35 AM CDT Acnyc695906/09/2024 8:35 AM KMOFnbnrlgxflk21.4 ??C (97.5 ??F)06/09/2024 8:35 AM CDTRespiratory Uann547206/09/2024 8:35 AM CDTOxygen Eiafuztwip800%06/09/2024 8:35 AM CDTInhaled Oxygen Concentration--Ooqlgl85.8 kg (198 lb)09/05/2025 10:34 AM KQGPiyqbu549.2 cm (5' 7)09/05/2025 10:34 AM CSTBody Mass Index31.01111/06/2024 10:34 AM 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 Plan of Treatment Health MaintenanceDue DateLast DoneCommentsDiabetes Screening- (based on age and BMI)1983Hep C Screening (Preventive Services)1983Asthma ACT (score of 20 or higher)1987Adult Preventive Visit2001HepB Vaccine (2) , 11/06/2013, 10/04/2013, Additional history existsMammogram /4COVID-19 Vaccine ( season)/10/2023, 08/24/2023, 11/03/2022, Additional history existsInfluenza Vaccine (#1) 509/10/2023, 09/15/2023, 06/14/2023, Additional history existsCervical Cancer Tqxcenzzi37 (Completed), 12/04/2017, 12/04/2017 Zoster/Shingles Vaccine (1 of 2)3DTaP/Tdap/Td Vaccine (6 - Tdap) /, 10/26/2018, 07/14/2016, Additional history exists Pneumococcal HlfqjihVzrzugzsk47/17/2022, 12/18/2017, 12/29/2010HIV Screening (Preventive Services)Unrvrchzr76/29/2023HPV Vaccine (No Doses Required)Completed HepA VaccineAged OutNo [...] Procedure NamePriorityDate/TimeAssociated DiagnosisCommentsHIV 1/2 AG/AB 4TH GEN Mowavut9803/16/2023 2:47 PM CDT SOB (shortness of breath) ANATOMICAL PATH LIQUID OJQFYIjvdmny89/19/2018 2:05 PM CDT from Last 3 Months or Most Recently Relevant to Health Maintenance Results * HIV 1/2 Ag/Ab 4th Generation (03/16/2023 2:47 PM CDT)ComponentValueRef Range Test MethodAnalysis TimePerformed AtPathologist SignatureHIV 1/2 Antigen/Antibody (4th generation)Negative (Non Reactive)Negative (Non Reactive)03/16/2023 7:11 PM CDTHEPROMEDICA COLDWATER [facility]IONAL [facility] LABComment:HIV-1 p24 Antigen and HIV-1/HIV-2 Antibody not detectedSpecimen (Source)Anatomical Location / LateralityCollection Method / VolumeCollection TimeReceived Time BloodVenipuncture / Vfadxco2103/16/2023 2:47 PM CDT03/16/2023 2:47 PM CDT Narrative Authorizing ProviderResult TypeResult StatusRacquel OWEN_1Final Result Performing OrganizationAddressCity/State/ZIP CodePhone Number [facility] [address] [phone] * Pap Smear (12/04/2017 2:05 PM CDT)Specimen (Source)Anatomical Location / LateralityCollection Method / VolumeCollection TimeReceived Time12/04/2017 2:05 PM CDT Narrative BEATRIZ SOFT - 12/13/2017 5:35 PM CDT FINAL GYNECOLOGICAL CYTOLOGY REPORT Pathology #: [id number] ?Date Obtained: 12/04/2017 ? Date Received: 12/05/2017 [...] and false-negative reports may occur. Performed at [address] [address] Authorizing ProviderResult TypeResult StatusGarolan HOGUEB_1Final Result Performing OrganizationAddressCity/State/ZIP CodePhone Number [facility] [address] [place] [phone] from Last 3 Months or Most Recently Relevant to Health Maintenance Additional Health Concerns InfectionOnset DateLast VodzvgnelGLGJ94/11/202402/07/2024 Insurance * Guarantor: [facility],CORPORATEAccount TypeRelation to PatientDate of PhoneBilling JukxvxmFbioiolaxZkzovubz69/02/1991 [address] Attn: [place] [address] Care Teams Team MemberRelationshipSpecialtyStart DateEnd Date Provider, MD Scottie PCP - General12/20/18
--- OUTSIDE RECORDS SUMMARY | 2025-09-08 01:26 | XMS_ITS | Encounter Summary ---
Author Organization [facility] Address [address] [place] [id number] Care Team Providers Care Cook Manager Name Role Phone Provider, External MD Primary Care Provider Unav ailable Encounter Details DateTypeDepartmentCare Team (Latest Contact Info)Jedxkzwmest21/19/2025 Notes/Orders Security Contact-Hyacinth Oliver, RDN, LD Social History Tobacco UseTypesPacks/DayYears UsedDateSmoking Tobacco: FormerCigarettesPassive Smoke Exposure: NeverSmokeless Tobacco: NeverAlcohol UseStandard Drinks/Week CommentsNo0 (1 standard drink = 0.6 oz pure alcohol)CommentsNoSex and Gender InformationValueDate RecordedSex Assigned at BirthNot on fileLegal Sex Bjsotg8006/27/2012 6:57 AM CDTGender IdentityNot on fileSexual OrientationNot on 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 NicolletNot on fileNot on fileNot on filedocumented as of this encounter Last Filed Vital Signs Vital SignReadingTime TakenCommentsBlood Pressure--Pulse--Temperature-- Respiratory Rate--Oxygen Saturation--Inhaled Oxygen Concentration--Arrbdn09.8 kg (198 lb)09/05/2025 10:34 AM GJKUlkezb096.2 cm (5' 7)09/05/2025 10:34 AM CSTBody Mass Index31.01111/06/2024 10:34 AM CSTdocumented in this encounter Progress Notes * HYACINTH SAL - 09/05/2025 10:32 AM CST [place] Session Information [place] GLP-[place] Date of Visit: 08/12/25 Visit Number: Ongoing Education Weight: 198 lb (89.8 kg) Height: 5' 7 (170.2 cm) BMI: 31.01 E OPERATOR documented in this encounter Plan of Treatment Not on file documented as of this encounter Visit Diagnoses Not on filedocumented in this encounter Additional Health Concerns InfectionOnset DateLast IndicatedResolved IjevMVAG84/4documented as of this encounter Care Teams Team MemberRelationshipSpecialtyStart DateEnd Date Provider, External, PCP - General12/20/18documented as of this encounter
[2025-09-08 01:27] LABS: Calcium* 8.8 mg/dL (8.4-10.6)
--- NOTE | 2025-09-08 01:30 | ED.HA ---
HPI - Headache General Date Seen: 09/08/25 Chief Complaint: Headache/Migraine Stated Complaint: Headache and vision changes Time Seen by Provider: 09/07/25 23:44 Source: patient, RN notes reviewed and old records reviewed Mode of arrival: ambulatory Limitations: no limitations History of Present Illness HPI Narrative: This delightful 40-year-old female is seen in room 3, she is in no apparent distress, although she tells me for the last 3 days she has had room right sided headache, over her right frontal area. Over the right parietal EE area. She also feels hot across her face. She noted tonight that her right pupil was bigger than her left, and this gave her more anxiety, and came in here to be seen. She has had this is very much the same as she was seen at [facility] in July. There she had a CT of her head and a CT of her head and neck which was all normal. She was given a migraine concoction felt a lot better, and was able to go home. She relates this to having a pain pump, she is seen at [facility] she has been in contact with her surgeon, and they are due to decrease her pain pump amount, She has not had any fevers or chills she denies any dizziness, no blurriness of her vision, no numbness tingling or weakness, Her pain pump was placed I believe in April of this year, she receives fentanyl and bupivacaine through it. She has been taking some ibuprofen for headache for the last 3 days. MD elicited complaint: headache and migraine Onset (ago): day(s) Onset description: gradually Location: right, temporal, retro-orbital and parietal Severity: moderate Quality & Timing: aching and throbbing Exacerbating factors: none Relieving factors: rest, dark room and sleep Associated symptoms: other Treatments prior to arrival: ibuprofen Related Data Home Medications ?Medication ?Instructions ?Recorded ?Confirmed clobetasol 0.05 % topical cream topical 09/07/25 clonazepam 1 mg tablet 0.5 - 1 mg PO DAILY 09/07/25 09/07/25 duloxetine 20 mg capsule,delayed 20 mg PO DAILY 09/07/25 09/07/25 release fluorometholone 0.1 % eye 1 drp ophthalmic (eye) BID 09/07/25 09/07/25 drops,suspension hydroxyzine HCl 10 mg tablet 10 - 20 mg PO 3XD PRN 09/07/25 09/07/25 methocarbamol 500 mg tablet 500 mg PO DAILY PRN 09/07/25 09/07/25 ondansetron HCl 4 mg tablet 4 - 8 mg PO BID PRN 09/07/25 09/07/25 semaglutide (weight loss) 2.4 2.7 mg subcut 09/07/25 mg/0.75 mL subcutaneous pen injector (Wegovy) Allergies Allergy/AdvReac Type Severity Reaction Status Date / Time clindamycin Allergy Severe Anaphylaxis Verified 09/07/25 22:57 erythromycin base Allergy Severe Anaphylaxis Verified 09/07/25 22:57 morphine Allergy Intermediate Rash Verified 09/07/25 22:56 Review of Systems Status of ROS: Reports: 10 or more systems reviewed and unremarkable except as noted in History and below [facility] Social History Non-prescribed substance use: denies use Exam Narrative: Exam Narrative: On examination in room 3 she is in no apparent distress, her blood pressure was initially elevated but after I saw her, came down nicely. She is speaking to me normally there is no obvious cranial nerve palsies on reviewing her face, but her right pupil comparison to the left is approximately 2 mm larger. They are both equal and reactive to light, her extraocular muscles are normal her fundi appear normal. There is no evidence of any redness swelling around her right eye, or within her conjunctiva. TMs are normal bilaterally, cranial nerves 3-12 are otherwise normal, she is able to whistle, months of the year in reverse are normal, carotid upstrokes are equal bilaterally JVP is flat, no evidence of any trauma over head or neck region. She denies trauma as a cause of this. Chest is good air entry bilaterally no wheezing crackles noted heart sounds are normal no clicks murmurs or gallops her abdomen is soft she moves all extremities independently and well. Tandem walking is assessed in the room and normal. Proximal and distal muscle strength is normal, fine jg movements and fingers nose testing are normal. Const: Vital Signs, click to edit/add: Vital Signs - 24 hr 09/07/25 22:47 09/07/25 23:46 09/08/25 01:10 Temperature 98.0 F Pulse Rate [Pulse Oximeter] 81 76 Respiratory Rate 18 16 16 Blood Pressure [Ri ght Upper Arm] 164/93 H 124/86 112/62 Pulse Oximetry 99 97 97 Oxygen Delivery Me thod Room Air Room Air Room Air Documenting provider has reviewed patient's vital signs: yes Course Course ED Course: Life-threatening differential diagnosis include subarachnoid hemorrhage, meningitis, encephalitis, carbon monoxide poisoning, and intracerebral hemorrhage. Other differential diagnosis include but not limited to migraine, cluster headache, tension headache, PROCESS ARTIST vasculitis, mass lesion, temporal arteritis, click acute closed angle glaucoma, septal and trigeminal neuralgia, sinusitis, closed head injury, and stroke I did discuss with her, that we will do a head CT just to rule out a malignancy that might of been seen not seen on the previous CT done in July 26. I am reassured by her CTA results I can see there and I do not think we have to repeat them, we will do her regular labs to rule out out infectious cause which I think is unlikely but she did have the instrumentation April. She has not had any new drops for her eyes she has not been using any gym send weed, or any other possibilities of getting it in her right eye. I wonder if this is related to the bupivacaine in the fat in all. Possibly, but she was should have an eye examination over the next few days also to be fully complete, she is not a smoker, and she has had no cough fevers or weight loss or history of malignancy so I do not think I have to do a chest x-ray to look at her apices for a Adalberto syndrome type situation. She is requesting the same medication she had before at [facility], these were Compazine, Toradol, fluids, Benadryl, and dexamethasone. I think this is reasonable to try this, as this may be more of a headache situation migraine atypical. Reevaluation(s) Time of Reevaluation #1: 02:19 Reevaluation #1: Recheck the patient show her headache is much improved, I did have her show me her license and her license I can see that she does have a little bit of aniscoria with her right pupil being bigger than her left, she would like to go home which I do not think is unreasonable, and follow-up with her pain provider. Vital Signs Vital signs: Initial Vital Signs Temperature 98.0 F 09/07/25 22:47 Temperature Source Temporal Artery Scan 09/07/25 22:47 Pulse Rate 81 09/07/25 22:47 Pulse Rhythm Regular 09/07/25 22:47 Respiratory Rate 18 09/07/25 22:47 Blood Pressure 164/93 H 09/07/25 22:47 Blood Pressure Mean 116 H 09/07/25 22:47 Blood Pressure Position Sitting 09/07/25 22:47 Pulse Oximetry 99 09/07/25 22:47 Oxygen Delivery Method Room Air 09/07/25 22:47 Vital Signs Temperature 98.0 F 09/07/25 22:47 Pulse Rate 81 09/07/25 22:47 Respiratory Rate 18 09/07/25 22:47 Blood Pressure 164/93 H 09/07/25 22:47 Pulse Oximetry 99 09/07/25 22:47 Oxygen Delivery Method Room Air 09/07/25 22:47 Temperature 98.0 F 09/07/25 22:47 Pulse Rate 76 09/07/25 23:46 Respiratory Rate 16 09/08/25 01:10 Blood Pressure 112/62 09/08/25 01:10 Pulse Oximetry 97 09/08/25 01:10 Oxygen Delivery Method Room Air 09/08/25 01:10 Medications Administered Medications: Discontinued Medications Generic Name Dose Route Start Last Admin Trade Name Freq PRN Reason Stop Dose Admin Sodium Chloride 1,000 mls @ 1,000 mls/hr 09/08/25 00:30 09/08/25 01:49 0.9 % Sodium Chloride 1000 Ml IV 09/08/25 01:29 Infused .Q1H REGINALDO Infusion Diphenhydramine HCl 25 mg/ 100.5 mls @ 301.5 mls/hr 09/08/25 00:16 09/08/25 01:49 Sodium Chloride IVPB 09/08/25 00:35 Infused ONCE ONE Infusion Dexamethasone 12 mg/ Sodium 101.2 mls @ 303.6 mls/hr 09/08/25 00:16 09/08/25 01:48 Chloride IVPB 09/08/25 00:35 Infused ONCE ONE Infusion Ketorolac Tromethamine 30 mg 09/08/25 00:16 09/08/25 01:08 Ketorolac 30 Mg/Ml Inj IVP 09/08/25 00:17 30 mg ONCE ONE Administration Prochlorperazine 5 mg 09/08/25 00:16 09/08/25 01:08 Prochlorperazine 5 Mg/Ml Vial IVP 09/08/25 00:17 5 mg ONCE ONE Administration MDM - Headache MDM Narrative Medical decision making narrative: Life-threatening differential diagnosis include subarachnoid hemorrhage, meningitis, encephalitis, carbon monoxide poisoning, and intracerebral hemorrhage. Other differential diagnosis include but not limited to migraine, cluster headache, tension headache, PROCESS ARTIST vasculitis, mass lesion, temporal arteritis, click acute closed angle glaucoma, septal and trigeminal neuralgia, sinusitis, closed head injury, and stroke Differential Diagnosis Differential diagnosis: Likely migraine, tension headache, subarachnoid hemorrhage, meningitis, sinusitis and postconcussion syndrome Medical Records Attestation: I reviewed the patient's medical records. Medical records narrative: Reviewed her chart in [facility], from previous visit to [facility] July 26. Lab Data Attestation: I reviewed the patient's lab results. Labs: Lab Results 09/08/25 Range/Units 00:37 WBC 6.01 (4.50-11.00) K/uL RBC 4.21 (4.00-5.20) m/uL Hgb 13.1 (12.0-16.0) gm/dL Hct 37.3 (33.0-51.0) % MCV 89 (80-100) fL MCH 31 (26-34) pg MCHC 35 (32-36) gm/dL RDW Coeff of Meghan 12.0 (11.5-15.5) % Plt Count 238 (140-440) K/uL Neut % (Auto) 52.6 (42.0-72.0) % Lymph % (Auto) 34.8 (20-44) % [place] % (Auto) 10.8 (0.0-11.0) % Eos % (Auto) 1.3 (0.0-7.0) % Baso % (Auto) 0.5 (0.0-3.0) % Neut # (Auto) 3.16 (1.7-7.0) K/uL Lymph # (Auto) 2.09 (0.90-2.90) K/uL [place] # (Auto) 0.60 (0.00-0.90) K/UL Eos # (Auto) 0.08 (0.00-0.50) K/uL Baso # (Auto) 0.03 (0.00-0.30) K/uL Abs Immat Gran (auto) 0.00 (0.00-0.30) K/uL Imm/Tot Granulo (auto) 0.0 % Sodium 138 (135-149) mmol/L Potassium 3.7 (3.6-5.1) mmol/L Chloride 106 (96-114) mmol/L Carbon Dioxide 25 (20-32) mmol/L Anion Gap 7 (7-15) mEq/L BUN 19 (5-24) mg/dL Creatinine 0.6 (0.5-1.5) mg/dL Estimated Creat Clear 118.78 Estimated GFR 115 ml/min Glucose 95 (60-115) mg/dL Calcium 8.8 (8.4-10.6) mg/dL C-Reactive Protein < 0.5 L (0.5-1.0) mg/dL Discharge Plan Discharge Clinical Impression: Headache, Migraine, Anisocoria Patient Disposition: Home, Self-Care Condition: Improved Instructions: Migraine Headache (ED), Acute Headache (DC) Additional Instructions: I think it would be reasonable let her go home, be safe as it slippery outside, please call your pain provider, and follow-up with them, return here if increasing pain numbness tingling or any other atypical symptoms. Activity Level: Light activity Prescriptions: No Action methocarbamol 500 mg tablet 500 mg PO DAILY PRN ondansetron HCl 4 mg tablet 4 - 8 mg PO BID PRN clonazepam 1 mg tablet 0.5 - 1 mg PO DAILY clobetasol 0.05 % cream topical fluorometholone 0.1 % drops,suspension 1 drp ophthalmic (eye) BID hydroxyzine HCl 10 mg tablet 10 - 20 mg PO 3XD PRN duloxetine 20 mg capsule,delayed release(DR/EC) 20 mg PO DAILY Wegovy 2.4 mg/0.75 mL pen injector 2.7 mg subcut Follow Up/Referrals: Provider,Not a Local [Primary Care Provider, Family Practice] Stand Alone Forms: MyHealth Info Instructions
== END 2025-09-08 02:31 | disposition home or self-care (01) ==
PROVIDERS: Emergency Provider Family Medicine
DX: G43.909 Migraine, unspecified, not intractable, without status migrainosus (principal); H57.02 Anisocoria
CPT/HCPCS: 36415; 70450; 80048; 85025; 86140; 96361; 96365; 96366; 96375; 99284; J0780; J1100; J1200; J1885; J7030